=== PATIENT | female | born 1950 | race Caucasian/White ===

== ENCOUNTER → 2023-10-05 13:26 | Outpatient (REF) | payer MEDICARE, OTHER, SELFPAY | LOC: RAD 13:26 | PROVIDERS: ATTENDING PHYSICIAN Surgery Vascular Surgery; FAMILY PHYSICIAN Internal Medicine | DX: Z01.818 Encounter for other preprocedural examination (principal) | CPT/HCPCS: 93985 ==

== ENCOUNTER 2023-10-19 05:52 | Day surgery (SDC) | payer MEDICARE, OTHER, SELFPAY ==
[2023-10-19] VITALS (11 sets, daily range): BP systolic 112–184; BP diastolic 55–76; BMI 20.1
[2023-10-19 06:47] LABS: Hemoglobin 11.1 g/dL (12.0-16.0); Mean Corp Hgb Conc. 32.6 g/dL (33.0-37.0); Mean Corpuscular Hgb 29.9 pg (27.0-31.0); Mean Corpuscular Volume 91.6 fL (81.0-99.0); Mean Platelet Volume 11.1 fL (7.4-10.4); Platelet Count 327 10^3/uL (130-400); Red Blood Cell Count 3.71 10^6/uL (4.20-5.40); White Blood Cell Count 11.9 10^3/uL (4.8-10.8)
[2023-10-19] MEDS: NSS 500 IV (06:53)
[2023-10-19] MEDS: BACTROBAN NASAL 1 GRAM NASAL (06:53)
[2023-10-19] MEDS: PERIDEX 0.12% ORAL RINSE 15 ML PO (06:53)
[2023-10-19 06:57] LABS: Blood Urea Nitrogen 38 mg/dl (7-17); Calcium 9.8 mg/dl (8.4-10.2); Carbon Dioxide 31 mmol/L (22-30); Chloride 99 mmol/L (98-107); Glucose 121 mg/dl (70-99); Potassium 3.9 mmol/L (3.5-5.1); Sodium 142 mmol/L (135-145); eGFR 17.62
[2023-10-19 07:02] LABS: Glucose - Point of Care 134 mg/dl (70-99)
--- NOTE | 2023-10-19 07:21 | W.SUR.PREOP ---
Pre-Operative Surgical Note
-
I have examined this patient prior to the performance of the scheduled procedure.
The patient's condition is unchanged from the time of the current History and
Physical and the patient is able to undergo the scheduled procedure.
[2023-10-19 09:36] LABS: Glucose - Point of Care 123 mg/dl (70-99)
--- NOTE | 2023-10-19 09:48 | W.IMMPOSTOP ---
Surgical Immed Post Op Note
-
Primary Surgeon: Rajesh Shukla III, MD
Assisting Surgeon: Del Mckeon MD
Pre-op Diagnosis: ESRD
Post-op Diagnosis: ESRD
Procedure Performed: Brachio-basilic fistula creation
Anesthesia Type: General
Specimen / Cultures: NA
Estimated Blood Loss: 20cc
Complications: NA
Operative Findings:
Patient's left arm was prepped and draped. Basilic vein and brachial artery were mapped out with ultrasound preoperatively. A 4cm incision was made proximal to the antecubital fossa with subsequent cutdown of subcutaneous tissue to expose the
brachial artery and basilic vein. Proximal and distal control of the brachial artery was obtained. Branching vessels of basilic vein were tied off and/or clipped. The basilic vein was ligated, leaving an appropriate amount of length to traverse to
the brachial artery. An arteriotomy was made using Roldan scissors in the brachial artery. Local heparin was administered. Vessel loops were secured proximally and distally. An end-side anastomosis was made between the basilic vein and brachial
artery using a running 7-0 polypropylene suture. Hemostasis was confirmed and a thrill was noted and marked roughly 3cm proximal to the incision. The overlying subcutaneous tissue and skin were closed with a running 3-0 vicryl, 4-0 monocryl, and
skin glue.
--- NOTE | 2023-10-19 14:57 | OR.RPT ---
Operative Report
Operative Report
Date of Operation: 10/19/2023
Pre Op Diagnosis:
1.) End-stage renal disease requiring hemodialysis access
2.) Prior failed left upper extremity AV fistulas
Post Op Diagnosis:
1.) End-stage renal disease requiring hemodialysis access
2.) Prior failed left upper extremity AV fistulas
Procedure: Creation of left upper arm brachiobasilic AV fistula, first stage of a planned two-stage basilic vein transposition
Surgeon: Rajesh Shukla III, MD
[employer]: Del Mckeon MD PGY-1
Anesthesia: General
Complications: None
Estimated Blood Loss: 20 cc
History and Indications for Procedure: 72-year-old female in need of more permanent hemodialysis access with prior failed left upper extremity AV fistulas in the past.
Procedure in Detail: Jaycee Vega was correctly identified and placed supine on the operating table. After adequate induction of anesthesia the left arm was positioned, prepped and draped in the usual sterile fashion. Preoperative antibiotics were
administered. A timeout procedure was performed with the nursing and anesthesia staff confirming the patients identity as well as the nature and laterality of the procedure.
I performed intraoperative ultrasound on the veins of the left arm. I identified the upper arm basilic vein from the elbow to the axilla. The brachial artery was also identified in the distal upper arm and proximal forearm. The basilic vein was
uniformly have acceptable diameter for AV fistula creation from the elbow to the axilla. The appropriate site for the incision was then identified in the distal upper arm, just proximal to the elbow.
An incision was then made in the distal upper arm. Careful sharp dissection was performed and the basilic vein exposed. Branches of the vein were ligated between silk ties. The brachial artery was exposed with sharp dissection. Proximal and distal
control was obtained with vessel loops.
The distal end of the basilic vein was ligated with a tie. The vein was transected and flushed proximally with heparinized saline. The vein flushed easily and without resistance. The vessel loops on the artery were secured. An arteriotomy was made
with an 11-blade. This was extended just slightly proximally and distally with Roldan scissors. The proximal and distal artery was flushed with heparinized saline. The end of the vein was spatulated slightly. An end-to-side anastomosis was performed
from the end of the basilic vein to the brachial artery with a running 7-0 Prolene. At the completion of the anastomosis the proximal vessel loop was released first. After several heartbeats the distal brachial artery loop was released. The suture
line was closely inspected and hemostasis achieved. There was an excellent thrill in the basilic vein. There was a good pulse in the brachial artery proximal and distal to the anastomosis. There was a strong pulse in the radial artery at the left
wrist.
The wound was irrigated with saline. Hemostasis was achieved in the wound bed. The wound was closed in multiple layers and skin glue was applied.
The patient tolerated the procedure well and was taken to the PACU in stable condition.
Attestation: I was present and responsible for the entire procedure
Signed:
Rajesh Shukla III, MD
[facility]
[phone] (cell)
== END 2023-10-19 11:35 | disposition home or self-care (01) ==
LOC: CATH 05:52
PROVIDERS: ATTENDING PHYSICIAN Surgery Vascular Surgery; FAMILY PHYSICIAN Internal Medicine
DX: I12.0 Hypertensive chronic kidney disease with stage 5 chronic kidney disease or end stage renal disease (principal); E11.22 Type 2 diabetes mellitus with diabetic chronic kidney disease; N18.6 End stage renal disease; Z99.2 Dependence on renal dialysis
CPT/HCPCS: 36821; 80048; 82962; 85027; 85610; 85730; 93005

== ENCOUNTER → 2024-01-18 09:20 | Outpatient (REF) | payer MEDICARE, OTHER, SELFPAY | LOC: RAD 09:20 | PROVIDERS: ATTENDING PHYSICIAN Physician Assistant; FAMILY PHYSICIAN Internal Medicine | DX: Z01.818 Encounter for other preprocedural examination (principal) | CPT/HCPCS: 93990 ==

== ENCOUNTER 2024-02-15 08:14 | Day surgery (SDC) | payer MEDICARE, OTHER, SELFPAY ==
[2024-02-15] VITALS (14 sets, daily range): BP systolic 72–154; BP diastolic 53–72; BMI 19.8
[2024-02-15] MEDS: NSS 500 IV (09:10)
[2024-02-15] MEDS: BACTROBAN NASAL 1 GRAM NASAL (09:10)
[2024-02-15] MEDS: PERIDEX 0.12% ORAL RINSE 15 ML PO (09:10)
[2024-02-15 09:44] LABS: Hemoglobin 10.5 g/dL (12.0-16.0); Mean Corp Hgb Conc. 32.8 g/dL (33.0-37.0); Mean Corpuscular Hgb 29.5 pg (27.0-31.0); Mean Corpuscular Volume 89.9 fL (81.0-99.0); Mean Platelet Volume 11.1 fL (7.4-10.4); Platelet Count 292 10^3/uL (130-400); Red Blood Cell Count 3.56 10^6/uL (4.20-5.40); Red Cell Dist. Width 15.9 % (11.5-14.5); White Blood Cell Count 12.1 10^3/uL (4.8-10.8)
[2024-02-15 09:53] LABS: INR 0.98
[2024-02-15 09:54] LABS: APTT 23.6 Sec (23.4-35.0)
[2024-02-15 10:00] LABS: Blood Urea Nitrogen 27 mg/dl (7-17); Calcium 9.7 mg/dl (8.4-10.2); Carbon Dioxide 32 mmol/L (22-30); Chloride 97 mmol/L (98-107); Estimated Creatinine Clearance 16 ml/min; Glucose 108 mg/dl (70-99); Potassium 3.7 mmol/L (3.5-5.1); Sodium 140 mmol/L (135-145); eGFR 16.12
--- NOTE | 2024-02-15 12:20 | W.PA-PDMP ---
[place]-PDMP
-
Checked the [place]- Prescription Drug Monitoring Program website, no red flags identified; safe to proceed with prescription.
--- NOTE | 2024-02-15 12:37 | OR.RPT ---
Operative Report
Operative Report
Date of Operation: 02/15/2024
Pre Op Diagnosis: Upper extremity brachiobasilic AV fistula (status post 1st stage of planned 2 stage basilic vein transposition)
Post Op Diagnosis: Upper extremity brachiobasilic AV fistula (status post 1st stage of planned 2 stage basilic vein transposition)
Procedure: Revision of left upper extremity brachiobasilic AV fistula with transposition of the basilic vein (second stage BVT)
Surgeon: Rajesh Shukla III, MD
[employer]: Del Mckeon MD PGY-2
Anesthesia: General
Complications: None
Estimated Blood Loss: 20 cc
History and Indications for Procedure: 73-year-old female status post first stage of a planned two-stage basilic vein transposition.
Procedure in Detail: Jaycee Vega was correctly identified and placed supine on the operating table. After adequate induction of anesthesia her left arm was abducted 90 degrees. A timeout procedure was performed with the nursing and anesthesia
staff confirming the patient's identity and the nature and laterality of the procedure. The basilic vein was marked in the upper arm with ultrasound guidance. The arm was then circumferentially prepped and draped in the usual sterile fashion. We
made an incision over the medial upper arm. The entire basilic vein was dissected with careful sharp dissection. All branches were ligated and divided between ties and metal clips. The vein was good caliber along the entire course and had an
excellent thrill. Once the entire vein had been carefully dissected we then created a gentle curved tunnel lateral to the incision over the bicep with a large clamp. Proximal control was obtained on the vein with a curved vascular clamp. The vein
was marked and then transected near the arterial anastomosis. The vein was then brought through the tunnel carefully. The two ends of the vein were anastomosed to one another in an end-to-end fashion using a running 7-0 Prolene suture. At the
completion of the anastomosis the clamp was released and flow restored through the fistula. There was an excellent thrill in the tunnel. The suture line was inspected for hemostasis and this was achieved. The wound was irrigated with warm saline
solution. Hemostasis was achieved in the wound bed. The wound was then closed in multiple layers and sterile dressings applied. The patient had an easily palpable thrill in the tunnel and a palpable radial pulse at the conclusion of the case.
Attestation: I was present and responsible for the entire procedure
Signed:
Rajesh Shukla III, MD
[facility]
[phone] (ntci)
[2024-02-15 12:52] LABS: Glucose - Point of Care 117 mg/dl (70-99)
--- NOTE | 2024-02-15 13:02 | W.IMMPOSTOP ---
Surgical Immed Post Op Note
-
Primary Surgeon: Rajesh Shukla III, MD
Assisting Surgeon: Del Mckeon MD
Pre-op Diagnosis: ESRD
Post-op Diagnosis: ESRD
Procedure Performed: Basilic Vein Transposition
Anesthesia Type: General
Specimen / Cultures: NA
Estimated Blood Loss: 20cc
Complications: None
Operative Findings:
The BB fistula was identified on ultrasound preoperatively. A 15cm incision was made along the posterior surface of the left upper extremity. Electrocautery was used to dissect through subcutaneous tissue. The basilic vein was identified and freed.
Branches were tied, clipped, or burned accordingly. A track was created in adjacent subcutaneous tissue. Proximal and distal control of the vein were obtained. The vein was transected at its distal portion. The proximal portion was re-routed through
the new track, and re-anastamosed in an end-end fashion using running 7-0 polypropylene suture. Hemostasis was confirmed. Overlying tissue was closed with running 3-0 and 4-0, respectively. Thrill was identified and marked.
[2024-02-15] MEDS: ZOFRAN 4 MG IV (13:35)
[2024-02-15] MEDS: COMPAZINE 5 MG IV (14:24)
[2024-02-15 14:32] LABS: Glucose - Point of Care 143 mg/dl (70-99)
== END 2024-02-15 15:35 | disposition home or self-care (01) ==
LOC: CATH 08:14
PROVIDERS: ATTENDING PHYSICIAN Surgery Vascular Surgery; FAMILY PHYSICIAN Internal Medicine
DX: Z49.01 Encounter for fitting and adjustment of extracorporeal dialysis catheter (principal); N18.6 End stage renal disease; I25.10 Atherosclerotic heart disease of native coronary artery without angina pectoris; K21.9 Gastro-esophageal reflux disease without esophagitis; Z95.5 Presence of coronary angioplasty implant and graft; Z79.82 Long term (current) use of aspirin; Z99.2 Dependence on renal dialysis; I12.0 Hypertensive chronic kidney disease with stage 5 chronic kidney disease or end stage renal disease; E11.22 Type 2 diabetes mellitus with diabetic chronic kidney disease
CPT/HCPCS: 36832; 80048; 82962; 85027; 85610; 85730

== ENCOUNTER 2024-03-24 14:49 | Inpatient (IN) | payer MEDICARE, OTHER, SELFPAY ==
[2024-03-24] VITALS (9 sets, daily range): BP systolic 96–146; BP diastolic 48–84; BMI 20.5; BMI 19.5
--- NOTE | 2024-03-24 10:46 | ED.GENMED ---
History of Present Illness
General
Chief Complaint: Breathing Problem
Time Seen by Provider: 03/24/24 10:46
History of Present Illness
History of Present Illness:
HPI: The patient presents with weakness and ongoing shortness of breath. The weakness has been worsening but the shortness of breath is chronic. She told her dialysis unit that she was coming here instead and wants Dr. Singh to be notified. She
has a chronic cough. She had a kidney transplant 20 years ago for polycystic kidney disease but is currently on dialysis. There was some talk about hospice for her however she is not ready to commit to hospice yet.
EXAM:
GENERAL: The patient appears generally weak and debilitated, wet sounding cough noted
HEENT: Moist oral mucosa
CARDIOVASCULAR: No murmurs, normal heart rate, regular rhythm, No chest wall tenderness, permacath noted to the right side of the chest wall
PULMONARY: No respiratory distress, room air sats 96 to 98%, rhonchi with scant wheeze noted
ABDOMEN: Soft with no peritoneal signs, no tenderness
NEUROLOGIC: Good strength all extremities, no coordination deficits
PSYCHIATRIC: Appropriate mental status, normal insight and judgement
EXTREMITIES: Nontender, no edema, moves all extremities equally
SKIN: No rash, no lesions
TIME OF INITIAL ENCOUNTER:
NUMBER AND COMPLEXITY OF PROBLEMS ADDRESSED AT THE ENCOUNTER
� Chronic conditions affecting care: CHF, CAD, high blood pressure, diverticular disease, GERD, CKD on HD (polycystic kidney disease status post kidney transplant is anuric), anxiety/depression
� Acute Exacerbation and/or Progression of Chronic Illness: This is an acute exacerbation of a chronic problem
� Differential Diagnosis includes: Bronchitis, pneumonia
AMOUNT AND/OR COMPLEXITY OF DATA TO BE REVIEWED AND ANALYZED
� I performed an independent evaluation of and my interpretation is:
EKG: Sinus 81, frequent PVCs
CT: CT imaging shows dense right lower lobe consolidation, no report of any concerning mass
X-rays:
Laboratory Studies: White count 13.3, hemoglobin 9.9, bicarb 32, creatinine 4.8
Other:
� Review of other/old records: I reviewed records.
� Clinical information was obtained by an independent historian: I spoke to friend at bedside
� Prescriptions/Medications Considered but not given:
� Further testing considered but not performed:
RISK OF COMPLICATIONS AND/OR MORBIDITY OR MORTALITY OF PATIENT MANAGEMENT
� Social determinants of health affecting care: Lives at home
� Discussion with other providers: Hospitalist for admission; I also spoke to Dr. Boudreaux to arrange for dialysis today
� Escalation of care including admission/observation vs risk of discharge considered: Bicarb is 32, there may be of component of hypercapnia. The patient initially declined DuoNeb as I had originally recommended. Troponin less
than 0.012. BNP over 5000. CT with contrast shows right lower lobe consolidation. No clear evidence of any concerning mass as patient was concerned about at [place] from a year ago.
Past History
Past History
ED Past Medical History: CAD, HTN, Hypercholesterolemia, NV, Renal failure (Polycystic kidney disease, kidney transplant), Seizures, Psychiatric and Other (AAA, aortic dissection)
ED Past Surgical History: Cardiac (stent insertion, CABG), Cholecystectomy, Gynecological (partial hysterectomy) and Other (kidney transplant, cardiac stent, LE stent)
Social History
Tobacco: Smoker
Alcohol: None
Drug: None
Personal:
Living: with family
Employment: Employed
Family History
Family History: Hypertension
Phy Exam
Physical Exam
Physical Exam:
See HPI
Scores
Heart Failure Risk
Heart Failure Risk Score: Not Applicable
Course
Orders/Labs/Results
Orders:
Orders
03/24/24 11:10
CT Chest With Iv Contrast Urgent
Comment:
Reason For Exam: lung mass at [place]; worse SOB; renal ok contras
03/24/24 11:12
Ipratropium/Albuterol Sulfate [Duoneb] 3 ml INH R NOW ONE
03/24/24 12:08
Complete Blood Count/With Diff Urgent
Comprehensive Metabolic Panel Urgent
Magnesium Urgent
Pro-BNP [NT-proBNP] Urgent
Troponin I Urgent
03/24/24 13:25
Azithromycin 500 mg/250 ml [Zithromax Infusion] 500 mg in 250 ml IV NOW
CefTRIAXone [Rocephin] 1,000 mg IV NOW STA
03/24/24 13:28
Electrocardiogram (*1) Urgent
Reason for Study: Shortness of Breath
EKG- Treatment ONCE
Abnormal Lab Results
03/24/24
12:08
WBC 13.3 H 10^3/uL
(4.8-10.8)
RBC 3.37 L 10^6/uL
(4.20-5.40)
Hgb 9.9 L g/dL
(12.0-16.0)
Hct 30.1 L %
(37.0-47.0)
MCHC 32.9 L g/dL
(33.0-37.0)
RDW 16.1 H %
(11.5-14.5)
MPV 11.6 H fL
(7.4-10.4)
Abs Immat Gran (auto) 0.1 H 10^3/uL
(0-0.05)
Absolute Neuts (auto) 10.3 H 10^3/uL
(1.4-6.5)
Absolute Monos (auto) 1.0 H 10^3/uL
(0.1-0.6)
Neutrophils % 77.4 H %
(42.2-75.2)
Lymphocytes % 13.3 L %
(20.5-51.1)
Chloride 92 L mmol/L
(98-107)
Carbon Dioxide 32 H mmol/L
(22-30)
BUN 64 H mg/dl
(7-17)
Creatinine 4.8 H* mg/dL
(0.6-1.0)
Glucose 103 H mg/dl
(70-99)
03/24/24 12:08
03/24/24 12:08
Vital Signs
Initial and Last Documented VS:
Initial Vital Signs
Temp Pulse Resp BP Pulse Ox
98.2 F 98 18 119/65 96
03/24/24 10:37 03/24/24 10:37 03/24/24 10:37 03/24/24 10:37 03/24/24 10:37
Last Documented Vital Signs
Temp Pulse Resp BP Pulse Ox
98.2 F 78 19 135/52 97
03/24/24 10:37 03/24/24 13:30 03/24/24 13:30 03/24/24 13:26 03/24/24 13:30
*Critical Care Note
Total Time (30-74mins, 75-104mins- exclusive of procedures): Not Applicable
ED Attending Note
-
Portions of this chart may have been created with voice recognition software.� Occasional wrong word or��sound alike� substitutions may have occurred due to the inherent limitations of voice recognition software.
Discharge Plan
Departure
Patient Disposition: Admit
Date of Disposition: 03/24/24
Time of Disposition: 12:33
Presentation/result/management discussed w/ accepting MD/DO: Hospitalist
Discharge Problem:
Shortness of breath
Prescriptions:
No Action
atorvastatin 40 MG tablet
40 mg PO HS
Patient Comments:
aspirin 81 MG tablet,delayed release (DR/EC)
81 mg PO DAILY
clopidogrel 75 mg tablet
75 mg PO DAILY
midodrine 10 mg Tablet
10 mg PO MOWEFR@1400
Rx Instructions:
taken after diaylsis
isosorbide mononitrate 30 mg Tablet Extended Release 24 Hr
30 mg PO DAILY
duloxetine [Cymbalta] 60 mg Capsule,Delayed Release(Dr/Ec)
60 mg PO HS
cinacalcet [Sensipar] 60 mg Tablet
60 mg PO QPM
Referrals:
Lenore Sharpe MD [Family Provider] -
Interventions
Interventions:
*Risk Screen - Suicide Last Done: 03/24/24 10:37
*General Assessment Last Done: 03/24/24 10:37
*Neglect/Abuse Screening Last Done: 03/24/24 10:37
ED- Fall Risk Assessment Last Done: 03/24/24 11:04
*ED COVID-19 Vaccine History Last Done: 03/24/24 10:37
ED- Cardiac Assessment Last Done: 03/24/24 11:04
ED- Pulmonary Assessment Last Done: 03/24/24 11:04
Discharge Date and Time
Print Language: PORTUGUESE
[2024-03-24 12:28] LABS: % Basophils 0.6 % (0-2); % Immature Granulocytes 0.5 % (0-0.5); % Lymphocytes 13.3 % (20.5-51.1); % Monocytes 7.2 % (1.7-9.3); % Neutrophils 77.4 % (42.2-75.2); Absolute Basophils 0.1 10^3/uL (0-0.2); Absolute Eosinophils 0.1 10^3/uL (0-0.7); Absolute Immature Granulocytes 0.1 10^3/uL (0-0.05); Absolute Lymphocytes 1.8 10^3/uL (1.2-3.4); Absolute Neutrophils 10.3 10^3/uL (1.4-6.5); Hematocrit 30.1 % (37.0-47.0); Hemoglobin 9.9 g/dL (12.0-16.0); Mean Corp Hgb Conc. 32.9 g/dL (33.0-37.0); Mean Corpuscular Hgb 29.4 pg (27.0-31.0); Mean Corpuscular Volume 89.3 fL (81.0-99.0); Mean Platelet Volume 11.6 fL (7.4-10.4); Nucleated Red Blood Cells % 0 %; Platelet Count 264 10^3/uL (130-400); Red Blood Cell Count 3.37 10^6/uL (4.20-5.40); Red Cell Dist. Width 16.1 % (11.5-14.5); White Blood Cell Count 13.3 10^3/uL (4.8-10.8)
[2024-03-24 12:41] LABS: ALT (SGPT) 19 U/L (0-35); AST (SGOT) 29 U/L (14-36); Alkaline Phosphatase 117 U/L (38-126); Blood Urea Nitrogen 64 mg/dl (7-17); Calcium 9.4 mg/dl (8.4-10.2); Carbon Dioxide 32 mmol/L (22-30); Chloride 92 mmol/L (98-107); Estimated Creatinine Clearance 10 ml/min; Glucose 103 mg/dl (70-99); Magnesium 2.3 mg/dl (1.6-2.3); Potassium 4.4 mmol/L (3.5-5.1); Sodium 140 mmol/L (135-145); Total Bilirubin 0.8 mg/dl (0.2-1.3); Total Protein 6.8 g/dl (6.3-8.2); eGFR 9.17
[2024-03-24 12:49] LABS: NT-proBNP 5340 pg/ml; Troponin I < 0.012 ng/ml
[2024-03-24] MEDS: ROCEPHIN 1000 MG IV (13:35)
[2024-03-24] MEDS: ZITHROMAX INFUSION 250 IV (13:42)
--- NOTE | 2024-03-24 14:35 | CON.PUL ---
Consultation
Consultation Request
Date/Time Consultation Requested: 03/24/24
Date/Time Consultation Performed: 03/24/24
Performing Provider: Mariaa
Reason for Consultation: PNA
Medical History
-
History of Present Illness:
Patient is a 73-year-old female with previous history of end-stage renal disease on HD MWF, coronary artery disease, history of right thoracotomy with right lower lobe wedge resection 2018, ischemic cardiomyopathy, stroke presenting to ER with
complaints of 3 to 4 weeks of severe generalized fatigue, productive cough with occasional hemoptysis and right sided back pain. She had prior imaging in the past including at outside hospital demonstrating potential right lower lobe disease that
has not been followed up. CT obtained on this admission showing large right lower lobe consolidation likely pneumonia.
She is placed on empiric IV antibiotics.
She notes that her degree of hemoptysis is occasional and generally quarter size but not daily.
She is a former smoker, 30 pack years, quit only 2 years ago. She denies family history of lung cancer.
.
Past Medical History
Past Medical History: Other (see list below)
Social History
Tobacco: Former Smoker
Alcohol: None
Drug: None
Allergies / Home Medications
Allergies
Allergy/AdvReac Type Severity Reaction Status Date / Time
adhesive tape Allergy Itching Verified 03/24/24 10:40
Home Medications
�Medication �Instructions �Recorded �Confirmed �Last Taken �Type
atorvastatin 40 mg tablet 40 mg PO HS High cholesterol 11/04/12 03/24/24 03/23/24 History
aspirin 81 mg tablet,delayed 81 mg PO DAILY Blood clot 10/14/15 03/24/24 03/23/24 History
release prevention/tx
clopidogrel 75 mg tablet 75 mg PO DAILY Blood clot 10/27/22 03/24/24 03/23/24 History
prevention/tx
midodrine 10 mg tablet 10 mg PO MOWEFR@1400 hypotension 04/02/23 03/24/24 02/14/24 13:00 History
isosorbide mononitrate 30 mg 30 mg PO DAILY 10/14/23 03/24/24 03/23/24 History
tablet,extended release 24 hr
duloxetine 60 mg capsule,delayed 60 mg PO HS 10/19/23 03/24/24 03/23/24 History
release (Cymbalta)
cinacalcet 60 mg tablet (Sensipar) 60 mg PO QPM 02/15/24 03/24/24 03/23/24 History
Review of Systems
-
History Source: Patient
All other systems: Negative unless noted
Vitals / Labs / Diagnostic Testing
Vital Signs
Temp Pulse Resp BP Pulse Ox
98.2 F 78 19 135/52 97
03/24/24 10:37 03/24/24 13:30 03/24/24 13:30 03/24/24 13:26 03/24/24 13:30
Lab Data
03/24/24 12:08
03/24/24 12:08
Diagnostic Testing:
Physical Exam
-
HEENT: Normocephalic, Anicteric and Moist Mucous Membranes
Cardiovascular: S1/S2 and Regular Rhythm
Respiratory: Clear (decreased at R base) and Non-Labored Respirations
GI: Soft, Non Distended and Non Tender
Neurology: Awake, Alert, Oriented, AO x 3 and No Motor Deficits
Skin: Warm, Dry and Good Color
General: Comfortable and Other (NAD)
Assessment
-
Patient is a 73-year-old female with previous history of end-stage renal disease on HD MWF, coronary artery disease, history of right thoracotomy with right lower lobe wedge resection 2018, ischemic cardiomyopathy, stroke presenting to ER with
complaints of 3 to 4 weeks of severe generalized fatigue, productive cough with occasional hemoptysis and right sided back pain. She had prior imaging in the past including at outside hospital demonstrating potential right lower lobe disease that
has not been followed up. CT obtained on this admission showing large right lower lobe consolidation likely pneumonia. We are consulted for eval.
Right lower lobe pneumonia, cannot rule out malignancy
Hemoptysis
Generalized weakness
Productive cough
Right sided back pain
Conditions present prior to admission:
End-stage renal disease on HD
She has declined dialysis in the past, discussed hospice, has not yet agreed
Right upper extremity brachial DVT
Recent hospitalization-discharge 11/04/22-sepsis from E. coli bacteremia
CAD status post CABG-subsequent PCI
Hypertension
Hyperlipidemia�
Chronic kidney disease
Polycystic kidney status post renal transplant-2004
Chronic immunosuppression
Chronic hyperparathyroidism
Hypothyroid
Seizure history
AAA
Aortic dissection
History of TIA
PMR
Osteopenia
Peripheral neuropathy
Restless legs
CVA status post angioplasty and stenting of left vertebral artery 2018
Gait disturbance with left hand weakness following right basal ganglia CVA 2018
Cholecystectomy.� Partial hysterectomy.� Kidney transplant.� Lower extremity stent-left SFA.� Multiple Mohs procedures.� Esophageal repair
Plan
She is currently maintained on room air
Does not have O2 at home
Prior history of mild emphysema on CT, last PFT in 2018 without obstruction
She is a former smoker, 30 pack years, quit only 2 years ago. She denies family history of lung cancer.
There is concern with CT findings of right lower lobe consolidation, may indicate pneumonia but also cannot rule out malignancy
Agree with empiric IV antibiotics.
If not resolving, may need to have discussion regarding bronchoscopy
She has noted in the past that if she were to have malignancy, she may withdraw from dialysis
Mild hemoptysis is noted
She notes that her degree of hemoptysis is occasional and generally quarter size but not daily
Quantify for now
Metabolic alkalosis noted, can check VBG in AM
HD resumed per renal team
proBNP 5340
Prior echo has been reviewed, reduced EF 45%
She has history of ischemic cardiomyopathy
She appears severely deconditioned, failure to thrive
Recommend dietary, PT OT consults
Hospice has been discussed in the past, she has not been agreeable yet
Patient is DNR
We will follow
Diagnostic Data
CXR 12/03/22 - IMPRESSION: Limited exam due to patient rotation. New central line catheter. No pneumothorax. Mild vague bilateral pneumonia. Not significantly changed compared to the exam 2 days ago.
CXR 12/01/22- IMPRESSION: Mild to moderate residual bilateral pneumonia, significantly improved.
CT Chest 11/18/22- IMPRESSION: 1. Moderate to severe multifocal pneumonia throughout all lobes.
Chest 09/15/19- 1. 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 No significant change compared to prior study. The remaining visualized portion of the thoracic and upper abdominal aorta
are of normal caliber.
2. Changes of mild centrilobular emphysema. Prior right lower lobe resection.
3. Small left thyroid nodule, measuring 7 mm in diameter, likely benign.
CT Chest 03/24/24- 1. Large amount of dense airspace consolidation in the basal segments of the right lower lobe most likely representing pneumonia. Bronchi to the basal segments are completely filled with secretions.
2. Chronic postoperative changes right lower lobe as seen on previous examinations. Evaluation for recurrent malignancy is not possible on this examination secondary to the superimposed consolidation.
3. Trace right pleural effusion. As above, some indistinct decreased attenuation superior right lobe of the liver which could be related to reactive edematous/inflammatory change. As warranted, could be further evaluated with follow-up
contrast-enhanced CT abdomen and pelvis after resolution of acute process.
4. Chronic approximately 1 cm nodule in the right lower lobe as detailed above, most likely benign given presence with slight interval increase in size dating back to 2013.
5. Advanced aortic atherosclerosis. Ectasia ascending aorta, 4.[address] AP 11/09/22 - IMPRESSION:
1. � Moderate hydronephrosis of right iliac fossa transplant kidney. No obstructing calculi are identified.
2. � Small bowel lateral pleural effusions with adjacent atelectasis, right greater than left.
3. � Innumerable hepatic cysts and probable cysts.
4. � Small volume of ascites. Anasarca.
5. � Diverticulosis without diverticulitis.
6. � Abdominal aortic aneurysm measuring up to 3.4 cm in diameter.
ECHO 11/11/22- Mildly reduced left ventricular systolic function. Left ventricular ejection fraction is 45%.�Hypokinesis of the basal to mid inferolateral and lateral segments.�Mild/moderate mitral regurgitation.
Moderate aortic regurgitation. ��Mild tricuspid regurgitation. Estimated pulmonary artery pressure of 25-30 mmHg assuming a right atrial pressure of 3 mmHg. �Normal PASP. Compared to 09/15/19: LVEF has declined from 60-65% to 45%; there
is�inferolateral and lateral hypokinesis; and AR has progressed from mild/moderate�to moderate.
PFT 10/06/17: FEV1 2.35L 82%, FVC 3.21L 86%, ratio 73. TLC 4.76L 84%, DLCO 45% (normal reza/volumes, moderate diffusion impairment)
Reports and relevant images were personally reviewed.
-----
Total time spent on this consultation __75__ includes review of history, physical exam, medications, laboratory data, personal review of imaging, extensive review of outpatient records, discussion with care team and respiratory therapy.
--- NOTE | 2024-03-24 14:39 | HPS.HSE ---
Family Physician
-
Family Physician: Lenore Sharpe
Chief Complaint
-
Productive cough, hemoptysis, generalized fatigue, right-sided back pain.
History of Present Illness
Patient is a 73 years old female with extensive past medical history including end-stage renal disease with failed transplant on hemodialysis Wednesday, coronary artery disease, right thoracotomy with right lower lobe wedge resection
2019 with benign pathology, CVA, ischemic cardiomyopathy presents to the emergency room with complaints of about 3 to 4 weeks of severe generalized fatigue, productive cough with hemoptysis as well as occasional right-sided back pain. Patient
denies any chest pain, fever. She denies any problems swallowing. She mentioned hospitalization to [facility] [place] close to a year ago with similar symptoms and was treated with antibiotics. At that time concern was for possible right
lower lobe mass, although patient had no follow-up.
Medical History
Past Medical History
Past Medical History: Reports CAD, CHF, CVA and Other (End-stage renal disease on HD. Right lower lobe mass with wedge resection. Failed renal transplant. Polycystic kidney disease.)
Past Surgical History: Reports Other (CABG, right lower lobe wedge resection. AV fistula, renal transplant)
Social History
Tobacco: Former Smoker
Living: With Family
Employment: Disabled
Family History
Family History: Not pertinent
Allergies / Home Medications
Allergies reflects when Allergies were last updated in [facility].
Home Medications with original date entered in [facility]
Allergy/Medication List:
Allergies
Allergy/AdvReac Type Severity Reaction Status Date / Time
adhesive tape Allergy Itching Verified 03/24/24 10:40
Home Medications
atorvastatin 40 mg tablet 40 mg PO HS High cholesterol 11/04/12
aspirin 81 mg tablet,delayed release 81 mg PO DAILY Blood clot prevention/tx 10/14/15
clopidogrel 75 mg tablet 75 mg PO DAILY Blood clot prevention/tx 10/27/22
midodrine 10 mg tablet 10 mg PO MOWEFR@1400 hypotension 04/02/23
isosorbide mononitrate 30 mg tablet,extended release 24 hr 30 mg PO DAILY 10/14/23
duloxetine 60 mg capsule,delayed release (Cymbalta) 60 mg PO HS 10/19/23
cinacalcet 60 mg tablet (Sensipar) 60 mg PO QPM 02/15/24
Review of Systems
-
A 12 point ROS was completed and negative except as noted: Yes
Constitutional: Reports See HPI
Respiratory: Reports See HPI
Cardiac: Reports No Symptoms
Abdomen/GI: Reports No Symptoms
: Reports No Symptoms
Physical Exam
Vital Signs
Vital Signs
Temp Pulse Resp BP Pulse Ox
98.2 F 78 19 135/52 97
03/24/24 10:37 03/24/24 13:30 03/24/24 13:30 03/24/24 13:26 03/24/24 13:30
Physical Exam
General: Well Developed, No Apparent Distress and Appears Chronically Ill
HEENT: NormoCephalic, Moist mucous membranes and Atraumatic
Respiratory: Rhonchi and Other (Right base bronchial sounds); No Wheezes
Cardiac: S1/S2 and Regular Rhythm; No Murmur or Rub
GI: Soft, Non Tender, Non Distended and Normal Bowel Sounds; No Organomegaly
Rectal: Deferred by Provider
Musculoskeletal: No Clubbing, No Cyanosis and No Edema
Skin: No Rash
Neuro: Awake, Alert, Oriented, AO x 3 and Nonfocal/grossly intact
Laboratory Results
-
03/24/24 12:08
03/24/24 12:08
Laboratory Results
Total Bilirubin 0.8 mg/dl (0.2-1.3) 03/24/24 12:08
AST 29 U/L (14-36) 03/24/24 12:08
ALT 19 U/L (0-35) 03/24/24 12:08
Alkaline Phosphatase 117 U/L (38-126) 03/24/24 12:08
Troponin I < 0.012 ng/ml 03/24/24 12:08
Data Reviewed
-
Diagnostic Radiology: Report Reviewed by me
Lab Data: Labs Reviewed by me
Impression/Plan
-
IMPRESSION:
73 years old female with history of right lower lobe wedge resection with benign pathology presents with weeks of generalized fatigue, productive cough and hemoptysis.
Right lower lobe pneumonia
Hemoptysis
Failure to thrive with generalized fatigue
Other conditions:
Right thoracotomy with right lower lobe wedge resection 2018 with benign pathology.
End-stage renal disease on hemodialysis Wednesday.
Failed renal transplant .
Anemia of chronic disease.
Polycystic kidney disease with bilateral nephrectomy 2003.
CAD status post CABG 2002.
Ischemic cardiomyopathy with LVEF of 45% (decreased from 60 to 65%)
Chronic hypotension requiring midodrine.
History of PMR currently not on steroids.
History of CVA, status post angioplasty/stent at the left vertebral artery 2019 at [facility].
PAD with left SFA angioplasty and stenting 2012
Valvular disease with mild MR/moderate AI
History of longstanding tobacco abuse, currently not smoking
History of COVID-19 infection
PLAN:
Presenting with weeks of generalized fatigue, productive cough with hemoptysis, occasional right-sided back pain
Afebrile
Exam with right base bronchial sounds.
Noted with mild elevation of WBC.
CT scan findings with large amount of dense airspace consolidation in the basal segments of the right lower lobe most likely a presenting pneumonia. Bronchial to the distal segments are completely filled with secretions.
Sputum culture
Blood culture.
Quantify hemoptysis. CAD/PAD/prior CVA on [employer]. Will continue with caution.
Broad-spectrum antibiotics: Vancomycin/Zosyn/doxycycline adjusted dialysis schedule
Mucolytic's.
Consider chest PT.
Follow-up imaging
Speech and swallow evaluation.
End-stage renal disease with failed transplant
Currently not on immunosuppression.
Polycystic kidney disease with bilateral nephrectomy.
Continue hemodialysis as per schedule.
Continue midodrine
ASCVD: CAD/PAD/history of CVA
Ischemic cardiomyopathy.
Continue preadmission regimen including DAPT, statin.
Continue DAPT
On Imdur
Physical therapy evaluation.
CODE STATUS DNR according to prior records and admissions.
DVT prophylaxis mechanical.
--- NOTE | 2024-03-24 15:57 | PTOTSP ---
AUTO RADIATOR SPECIALIST Note
Patient unavailable for dysphagia evaluation due to starting HD. Will follow up as able/appropriate.
Patient known to department from prior video swallow study 12/15/2018 where she had mild-moderate pharyngeal dysphagia. Of note, at that time patient had silent aspiration when swallowing thin contrast with a barium pill. It was recommended that
patient have regular solids, thin liquids with strategies (i.e., small bolus size, oral prep set, chin tuck, multiple swallows). Consider giving oral medications whole in puree given information above.
--- NOTE | 2024-03-24 16:19 | W.CON.NEPH ---
Consultation
-
Date/Time Consultation Requested: 03/24/24
Date/Time Consultation Performed: 03/24/24 11a
Requesting Provider: Dr. Banks
Performing Provider: Dr. Boudreaux
Reason for Consultation: ESRD
Medical History
-
Chief Complaint: Shortness of breath
History of Present Illness:
This is a 73-year-old female who is known to us for her end-stage renal disease on hemodialysis Wednesdays at [facility]. She has a prior renal transplant from 2004 which had failed. She has known tertiary
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 She does have chronic hyponatremia and receives midodrine with dialysis. Recently she had been at [place] and was found to have a right lung mass. She is unsure of what the workup was at that time but she
remembers being told to get a PET scan as an outpatient. She had then gone to rehab in [facility]. She comes to the emergency room today because of worsening fatigue some cough right-sided back pain and shortness of breath. She was due for
dialysis today
Past Medical History
ESRD, renal transplant donor failed 2004, polycystic kidney disease with bilateral nephrectomy, AV fistula, peripheral arterial disease with left SFA angioplasty and stenting, coronary artery bypass grafting, thoracic aneurysm repair, right
thoracotomy with right lower lobe wedge resection in 2018 with benign pathology, stroke, PMR, tertiary hyperparathyroidism, pulmonary embolism, ischemic cardiomyopathy, moderate MR, moderate AI
Social History
Tobacco: Smoker
Alcohol: None
Family History
Family History: Not Pertinent
Allergies / Home Medications
Allergy/AdvReac Type Severity Reaction Status Date / Time
adhesive tape Allergy Itching Verified 03/24/24 10:40
�Medication �Instructions �Recorded �Confirmed �Type
atorvastatin 40 mg tablet 40 mg PO HS High cholesterol 11/04/12 03/24/24 History
aspirin 81 mg tablet,delayed 81 mg PO DAILY Blood clot 10/14/15 03/24/24 History
release prevention/tx
clopidogrel 75 mg tablet 75 mg PO DAILY Blood clot 10/27/22 03/24/24 History
prevention/tx
midodrine 10 mg tablet 10 mg PO MOWEFR@1400 hypotension 04/02/23 03/24/24 History
isosorbide mononitrate 30 mg 30 mg PO DAILY 10/14/23 03/24/24 History
tablet,extended release 24 hr
duloxetine 60 mg capsule,delayed 60 mg PO HS 10/19/23 03/24/24 History
release (Cymbalta)
cinacalcet 60 mg tablet (Sensipar) 60 mg PO QPM 02/15/24 03/24/24 History
Review of Systems
-
Fatigue shortness of breath back pain
All other systems: Negative unless noted
Physical Exam
Vital Signs
Vital Signs
Temp Pulse Resp BP Pulse Ox
98.0 F 83 18 96/52 94
03/24/24 15:43 03/24/24 15:43 03/24/24 15:43 03/24/24 15:43 03/24/24 15:43
Lab Results
WBC 13.3 10^3/uL (4.8-10.8) H 03/24/24 12:08
RBC 3.37 10^6/uL (4.20-5.40) L 03/24/24 12:08
Hgb 9.9 g/dL (12.0-16.0) L 03/24/24 12:08
Hct 30.1 % (37.0-47.0) L 03/24/24 12:08
Plt Count 264 10^3/uL (130-400) 03/24/24 12:08
Sodium 140 mmol/L (135-145) 03/24/24 12:08
Potassium 4.4 mmol/L (3.5-5.1) 03/24/24 12:08
Chloride 92 mmol/L (98-107) L 03/24/24 12:08
Carbon Dioxide 32 mmol/L (22-30) H 03/24/24 12:08
BUN 64 mg/dl (7-17) H 03/24/24 12:08
Creatinine 4.8 mg/dL (0.6-1.0) H* 03/24/24 12:08
eGFR 9.17 03/24/24 12:08
Glucose 103 mg/dl (70-99) H 03/24/24 12:08
Calcium 9.4 mg/dl (8.4-10.2) 03/24/24 12:08
Ivx-W-Lkrnglalopb Pept 5340 pg/ml 03/24/24 12:08
Albumin 4.0 g/dl (3.5-5.0) 03/24/24 12:08
Physical Exam
Patient is awake alert oriented and in no distress. Mood and affect were pleasant, insight and judgment were good. Pupils are equal round and reactive to light, extraocular movements are intact, sclera were anicteric. Hearing was normal, ears and
nose are intact. Oropharynx was clear. Neck was supple with trachea midline and no thyromegaly. Heart was regular rate and rhythm without rubs. Lower extremities without edema. Lungs were clear to auscultation bilaterally and with normal
excursion. Abdomen was soft, nontender, with normal active bowel sounds, and no hepatosplenomegaly. Skin was without rash and with normal turgor. AV fistula with good bruit and thrill, dialysis catheter in right neck noted
Vascular Access: AVF and CVC
Data Reviewed
-
CT Scan: Report Reviewed by me (CT chest with IV contrast on March 24, 2024 shows right lower lobe consolidation, trace right effusion, chronic 1 cm nodule right lower lobe)
Medical Tests (Nuc Med, Echo etc): Image Personally Visualized and interpreted (EKG on March 24, 2020 for my read shows sinus rhythm prolonged QT nonspecific T wave abnormality)
Labs: Labs Reviewed by me
Old Records: Reviewed
Assessment/Plan
-
Assessment
ESRD
Right lower lobe consolidation
Right lower lobe nodule
Hypertension
Coronary artery disease with bypass
Peripheral arterial disease
Tertiary hyperparathyroidism
Plan
Dialysis today to remain on schedule
Will use AV fistula. Plan is for removal of dialysis catheter in the next week
Pulmonary evaluation regarding right lung pathology
--- NOTE | 2024-03-24 16:27 | CM ---
Reviewed the chart notes and spoke with the patient on HD. The patient resides alone in a two story home with two steps to enter. The patient resides on the first floor. The patient reports having a cane and rolling walker. The patient receives
HD at [facility]. The patient has [employer] program aid three times a week for four hours each time. The aide transports the patient to HD. The patient has been to [facility] and [facility]. continues to be available
to patient/family and is monitoring medical plan for needs at discharge.
Plan: Discharge plans will depend on the patient's progress.
[2024-03-24] MEDS: EMLA CREAM 1 GRAM TOPICAL (16:28)
[2024-03-24 17:11] LABS: Hepatitis B Surface Antigen Negative (Negative)
--- NOTE | 2024-03-24 17:15 | W.PN.NEPH.HD ---
Assessment
-
Seen on HD. no new complaints. back pain still. VSS. access AVF good
Progress Note - Hemodialysis
-
Date of Service: March 24, 2024
Duration: 30 minutes and 3 hours
Potassium Bath: 2
Calcium Bath: 2.5
Opti-Dialyzer: 160
Ultrafiltration: Other (2kg)
Blood Flow: 400
Dialysate Flow: 600
Heparin: no
EPO: 03318 units
--- NOTE | 2024-03-24 18:01 | PHA.VAN.IN ---
Assessment
- Assessment
Renal Function: Patient has ESRD, on chronic Hemodialysis
Hemodialysis Schedule: MWF
Concomitant Antimicrobials: ZOSYN
- Previous Dosing Experience
Previous Regimen: DOSING BY RANDOM LEVEL
Date of Regimen: 10/27/22
Provided Trough of: UNKNOWN
Provided AUC of: UNKNOWN
Patient's SCR is: Decreased compared to previous dosing experience (10/27/22 SCR = 5.6)
Patient's weight is: Elevated compared to previous dosing experience (10/27/22 WT = 48.7 KG)
Plan
- Plan
Initial / Loading Dose: 1500MG
Maintenance Regimen: DOSING BY RANDOM LEVEL
Monitoring: RANDOM VANCOMYCIN LEVEL 03/25/24 AM
Pharmacokinetics Vancomycin I
- -
Patient Age: 73
Patient Sex: Female
Vancomycin Day #: 1
Indication: Pulmonary/Respiratory
Requesting Provider: SUJATA
Height / Weight:
Height 5 ft 8 in
Actual Weight 58.014 kg
- Vital Signs / Lab Results
Temp Pulse Resp BP Pulse Ox
98.0 F 83 18 96/52 94
03/24/24 15:43 03/24/24 15:43 03/24/24 15:43 03/24/24 15:43 03/24/24 15:43
Lab Results - Hematology
03/24/24
12:08
WBC 13.3 H
Lab Results - Chemistry
03/24/24
12:08
BUN 64 H
Creatinine 4.8 H*
Estimated Creat Clear 10
Albumin 4.0
--- NOTE | 2024-03-24 18:39 | PTCARENOTE ---
patient c/o of upper back pain from coughing. dr aware. Tyl ordered. pt refused and states tyl does not help. dr. lala made aware.
[2024-03-24] MEDS: RETACRIT 10000 UNITS IV (18:52)
[2024-03-24] MEDS: VANCOCIN 300 ML IV (19:02)
[2024-03-24] MEDS: VANCOCIN 300 MG IV (19:02)
[2024-03-24] MEDS: ROXICODONE 5 MG PO (19:40)
[2024-03-24] MEDS: MUCINEX 600 MG PO (19:40)
[2024-03-24] MEDS: SENSIPAR 60 MG PO (21:06)
[2024-03-24] MEDS: ZOSYN 50 IV (21:07)
[2024-03-24] MEDS: VIBRAMYCIN 100 MG PO (21:07)
[2024-03-24] MEDS: LIPITOR 40 MG PO (21:10)
[2024-03-24] MEDS: CYMBALTA DELAYED RELEASE 60 MG PO (21:18)
[2024-03-24] MEDS: ROBITUSSIN 100 MG PO (21:50)
[2024-03-25] MEDS: ZOSYN 50 IV ×3 (04:27→20:39)
[2024-03-25] MEDS: ROXICODONE 5 MG PO ×2 (04:35→17:28)
[2024-03-25 04:43] LABS: Venous Blood Gas B.E. 6.3 mmol/L (-4 to +4); Venous Blood Gas HCO3 30.6 mmol/L (22-27); Venous Blood Gas O2 Sat % 99.6 %; Venous Blood Gas pCO2 42 mmHg (35-48); Venous Blood Gas pH 7.47 (7.32-7.43); Venous Blood Gas pO2 102 mmHg (30-50)
[2024-03-25 04:56] LABS: % Basophils 0.9 % (0-2); % Eosinophils 1.7 % (0-6); % Immature Granulocytes 0.8 % (0-0.5); % Lymphocytes 13.6 % (20.5-51.1); % Monocytes 7.2 % (1.7-9.3); % Neutrophils 75.8 % (42.2-75.2); Absolute Basophils 0.1 10^3/uL (0-0.2); Absolute Eosinophils 0.2 10^3/uL (0-0.7); Absolute Immature Granulocytes 0.1 10^3/uL (0-0.05); Absolute Lymphocytes 1.6 10^3/uL (1.2-3.4); Absolute Monocytes 0.8 10^3/uL (0.1-0.6); Absolute Neutrophils 8.7 10^3/uL (1.4-6.5); Hematocrit 28.3 % (37.0-47.0); Hemoglobin 9.3 g/dL (12.0-16.0); Mean Corp Hgb Conc. 32.9 g/dL (33.0-37.0); Mean Corpuscular Hgb 28.5 pg (27.0-31.0); Mean Corpuscular Volume 86.8 fL (81.0-99.0); Mean Platelet Volume 11.3 fL (7.4-10.4); Nucleated Red Blood Cells % 0 %; Platelet Count 216 10^3/uL (130-400); Red Blood Cell Count 3.26 10^6/uL (4.20-5.40); White Blood Cell Count 11.5 10^3/uL (4.8-10.8)
[2024-03-25 05:20] LABS: Vancomycin Random 11.4 ug/ml
[2024-03-25 05:45] VITALS: BMI 19.4
[2024-03-25 07:35] VITALS: BP 112/59
--- NOTE | 2024-03-25 08:16 | W.PN.HOSP.TC ---
Today's Communication/Plan
-
Continue IV antibiotics
Follow cultures
Daily labs
Monitor clinically and any hemoptysis
Assessment / Plan
Assessment / Plan
Physical Exam
General: Well Developed, No Apparent Distress and Appears Chronically Ill
HEENT: Normocephalic, Moist mucous membranes and Atraumatic
Respiratory: Rhonchi and Other (Right base bronchial sounds)
Cardiac: S1/S2 and Regular Rhythm
GI: Soft, Non Tender, Non Distended and Normal Bowel Sounds
Musculoskeletal: No Cyanosis and No Edema
Skin: Warm. Dry.
Neuro: Awake, Alert, Oriented, AO x 3 and Nonfocal/grossly intact

IMPRESSION:
73 years old female with history of right lower lobe wedge resection with benign pathology presents with weeks of generalized fatigue, productive cough and hemoptysis.
Right lower lobe pneumonia
Hemoptysis
Failure to thrive with generalized fatigue
Other conditions:
Right thoracotomy with right lower lobe wedge resection 2017 with benign pathology.
End-stage renal disease on hemodialysis Wednesday.
Failed renal transplant .
Anemia of chronic disease.
Polycystic kidney disease with bilateral nephrectomy 2003.
CAD status post CABG 2002.
Ischemic cardiomyopathy with LVEF of 45% (decreased from 60 to 65%)
Chronic hypotension requiring midodrine.
History of PMR currently not on steroids.
History of CVA, status post angioplasty/stent at the left vertebral artery 2019 at [facility].
PAD with left SFA angioplasty and stenting 2012
Valvular disease with mild MR/moderate AI
History of longstanding tobacco abuse, currently not smoking
History of COVID-19 infection
PLAN:
Presenting with weeks of generalized fatigue, productive cough with hemoptysis, occasional right-sided back pain
Afebrile
Exam with right base bronchial sounds.
Noted with mild elevation of WBC - IMPROVING
CT scan findings with large amount of dense airspace consolidation in the basal segments of the right lower lobe most likely a presenting pneumonia (but also cannot rule out malignancy). Bronchial to the distal segments are completely filled with
secretions.
Sputum culture
Blood culture.
Quantify hemoptysis. CAD/PAD/prior CVA on DAPT [employer]. Will continue with caution.
Broad-spectrum antibiotics: Vancomycin/Zosyn/doxycycline adjusted dialysis schedule
Mucolytic's.
Consider chest PT.
Follow-up imaging
Speech and swallow evaluation.
End-stage renal disease with failed transplant
Currently not on immunosuppression.
Polycystic kidney disease with bilateral nephrectomy.
Continue hemodialysis as per schedule.
Continue midodrine
ASCVD: CAD/PAD/history of CVA
Ischemic cardiomyopathy.
Continue preadmission regimen including DAPT, statin.
Continue DAPT
On Imdur
Physical therapy evaluation.
CODE STATUS DNR according to prior records and admissions.
DVT prophylaxis mechanical.
Anticipated Discharge: 24 - 48 hours
Subjective/Interval History
-
Date of Service: March 25, 2024
Patient was seen and examined. She was nauseous this morning, which later resolved.
Objective Data
-
Labs:
Laboratory Results
03/25/24
04:27
WBC 11.5 H
Hgb 9.3 L
Hct 28.3 L
Plt Count 216
Vital Signs:
Vital Signs
Temp Pulse Resp BP Pulse Ox
98.0 F 80 16 98/57 97
03/24/24 23:20 03/24/24 23:20 03/24/24 23:20 03/24/24 23:20 03/24/24 23:20
I&O
03/24/24 03/25/24 03/26/24
06:59 06:59 06:59
Intake Total 480 / 480
Balance 480 / 480
[2024-03-25] MEDS: IMDUR (EXTENDED RELEASE) 30 MG PO (08:39)
[2024-03-25] MEDS: VIBRAMYCIN 100 MG PO ×2 (08:39→20:39)
[2024-03-25] MEDS: PLAVIX 75 MG PO (08:39)
[2024-03-25] MEDS: MUCINEX 600 MG PO ×2 (08:40→20:39)
[2024-03-25] MEDS: ASPIR LOW (ENTERIC COATED) 81 MG PO (08:40)
--- NOTE | 2024-03-25 09:06 | W.PN.NEPH.PH ---
Today's Communication / Plan
-
Continue antibiotics
Assessment/Plan
-
Assessment
ESRD
Right lower lobe consolidation
Right lower lobe nodule
Hypertension
Coronary artery disease with bypass
Peripheral arterial disease
Tertiary hyperparathyroidism
Plan
Next dialysis Wednesday
Will use AV fistula. Plan is for removal of dialysis catheter in the next 2 week
Pulmonary evaluation regarding right lung pathology though this will be difficult until pneumonia has resolved
-
-
Date of Service: March 25, 2024
CC / HPI / ROS
-
Chief Complaint:
ESRD
History of Present Illness:
Tolerated dialysis yesterday
Blood pressure stable
On antibiotics for pneumonia
Anemia stable, hemoglobin 9.3
Review of Systems:
Mild shortness of breath, on supplemental O2
No chest pain
Labs
-
Labs:
WBC 11.5 10^3/uL (4.8-10.8) H 03/25/24 04:27
RBC 3.26 10^6/uL (4.20-5.40) L 03/25/24 04:27
Hgb 9.3 g/dL (12.0-16.0) L 03/25/24 04:27
Hct 28.3 % (37.0-47.0) L 03/25/24 04:27
Plt Count 216 10^3/uL (130-400) 03/25/24 04:27
Sodium 140 mmol/L (135-145) 03/24/24 12:08
Potassium 4.4 mmol/L (3.5-5.1) 03/24/24 12:08
Chloride 92 mmol/L (98-107) L 03/24/24 12:08
Carbon Dioxide 32 mmol/L (22-30) H 03/24/24 12:08
BUN 64 mg/dl (7-17) H 03/24/24 12:08
Creatinine 4.8 mg/dL (0.6-1.0) H* 03/24/24 12:08
eGFR 9.17 03/24/24 12:08
Glucose 103 mg/dl (70-99) H 03/24/24 12:08
Calcium 9.4 mg/dl (8.4-10.2) 03/24/24 12:08
Suf-O-Blaztegcwyi Pept 5340 pg/ml 03/24/24 12:08
Albumin 4.0 g/dl (3.5-5.0) 03/24/24 12:08
Physical Exam
-
Vital Signs:
Vital Signs
Temp Pulse Resp BP Pulse Ox
98.2 F 92 17 112/59 97
03/25/24 07:35 03/25/24 07:35 03/25/24 07:35 03/25/24 07:35 03/25/24 07:35
Cardiovascular:: Regular rate and rhythm
Respiratory:: Bilateral: Coarse
Lung Excursion:: Normal
Abdomen:: Nontender and Soft
Bowel Sounds:: Normal
Extremity Edema:: None: Bilateral:
--- NOTE | 2024-03-25 09:15 | PHA.VAN.FU ---
Vancomycin Assessment / Plan
- Assessment
Hemodialysis Schedule: MWF
WBC's are: Trending Down (13.3>11.5)
In the past 24 hrs, patient has been: Afebrile
Concomitant Antimicrobials: Piperacillin-tazobactam, doxycycline
- Assessment - Therapeutic Drug Monitoring
Random Level: 11.4 drawn ~9.5hrs after vancomycin 1500mg loading dose given
- Dosing Plan
Dosing by Level: Hold off on dosing today (Dose on HD days. Next HD 03/27/24)
- Monitoring Plan
Random Level: Ordered for 03/27/2024 at 06:00
- Follow Up
Pharmacy will continue to follow.
Vancomycin Follow UP
- -
Patient Age: 73
Patient Sex: Female
Vancomycin Day #: 2
Indication: Pulmonary/Respiratory
Requesting Provider: SUJATA
Pertinent Antimicrobial Allergies:
No antibiotic allergies
Height / Weight:
Height 5 ft 8 in
Actual Weight 57.788 kg
IBW in k.9
Pertinent Past Medical History: ESRD on HD, RLL mass w/wedge dissection 2019
- Vital Signs / Lab Results
Temp Pulse Resp BP Pulse Ox
98.2 F 92 17 112/59 97
03/25/24 07:35 03/25/24 07:35 03/25/24 07:35 03/25/24 07:35 03/25/24 07:35
Lab Results - Hematology
03/24/24 03/25/24
12:08 04:27
WBC 13.3 H 11.5 H
Lab Results - Chemistry
03/24/24
12:08
BUN 64 H
Creatinine 4.8 H*
Estimated Creat Clear 10
Albumin 4.0
Therapeutic Drug Monitoring
Random Vancomycin 11.4 ug/ml 03/25/24 04:27
--- NOTE | 2024-03-25 14:22 | W.PN.PUL3 ---
Today's Communication / Plan
-
Continue antibiotics
Consider transition to oral antibiotics in the next 24 hours and complete 7 days
Outpatient pulmonary follow-up
Will need radiographic follow-up
Continue hemodialysis
Assessment
-
Patient is a 73-year-old female with previous history of end-stage renal disease on HD MWF, coronary artery disease, history of right thoracotomy with right lower lobe wedge resection 2019, ischemic cardiomyopathy, stroke presenting to ER with
complaints of 3 to 4 weeks of severe generalized fatigue, productive cough with occasional hemoptysis and right sided back pain. She had prior imaging in the past including at outside hospital demonstrating potential right lower lobe disease that
has not been followed up. CT obtained on this admission showing large right lower lobe consolidation likely pneumonia. We are consulted for eval.
Right lower lobe pneumonia, cannot rule out malignancy
Hemoptysis
Generalized weakness
Productive cough
Right sided back pain
Conditions present prior to admission:
End-stage renal disease on HD
She has declined dialysis in the past, discussed hospice, has not yet agreed
Right upper extremity brachial DVT
Recent hospitalization-discharge 11/04/22-sepsis from E. coli bacteremia
CAD status post CABG-subsequent PCI
Hypertension
Hyperlipidemia�
Chronic kidney disease
Polycystic kidney status post renal transplant-2004
Chronic immunosuppression
Chronic hyperparathyroidism
Hypothyroid
Seizure history
AAA
Aortic dissection
History of TIA
PMR
Osteopenia
Peripheral neuropathy
Restless legs
CVA status post angioplasty and stenting of left vertebral artery 2018
Gait disturbance with left hand weakness following right basal ganglia CVA 2019
Cholecystectomy.� Partial hysterectomy.� Kidney transplant.� Lower extremity stent-left SFA.� Multiple Mohs procedures.� Esophageal repair
Plan
Remains on room air
Leukocytosis improving
Afebrile
Does not appear toxic..
She usually does not follow-up with pulmonary.
Prior history of mild emphysema on CT, last PFT in 2018 without obstruction
She is a former smoker, 30 pack years, quit only 2 years ago. She denies family history of lung cancer.
Right lower lobe consolidation on CAT scan,, may indicate pneumonia but also cannot rule out malignancy
Agree with empiric IV antibiotics. Okay to transition to oral antibiotics tomorrow if cultures are negative. Complete total of 7 days.
Will need outpatient CT imaging. Strongly recommend to follow-up.
If not resolving, may need to have discussion regarding bronchoscopy
She has noted in the past that if she were to have malignancy, she may withdraw from dialysis
Mild hemoptysis is noted
She notes that her degree of hemoptysis is occasional and generally quarter size but not daily
Quantify for now
Hemodialysis per primary team.
proBNP 5340
Prior echo has been reviewed, reduced EF 45%
She has history of ischemic cardiomyopathy
She appears severely deconditioned, failure to thrive
Physical therapy as tolerated.
Hospice has been discussed in the past, she has not been agreeable yet
Patient is DNR
After discharge recommend short-term follow-up with pulmonary to decide on follow-up regarding right lower lobe abnormality discussed with patient and she states that she has problems with transportation.. Not sure social media marketing manager can help.
Still information will be left in the chart.
Diagnostic Data
CXR 12/03/22 - IMPRESSION: Limited exam due to patient rotation. New central line catheter. No pneumothorax. Mild vague bilateral pneumonia. Not significantly changed compared to the exam 2 days ago.
CXR 12/01/22- IMPRESSION: Mild to moderate residual bilateral pneumonia, significantly improved.
CT Chest 11/18/22- IMPRESSION: 1. Moderate to severe multifocal pneumonia throughout all lobes.
Chest 09/15/19- 1. 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 No significant change compared to prior study. The remaining visualized portion of the thoracic and upper abdominal aorta
are of normal caliber.
2. Changes of mild centrilobular emphysema. Prior right lower lobe resection.
3. Small left thyroid nodule, measuring 7 mm in diameter, likely benign.
CT Chest 03/24/24- 1. Large amount of dense airspace consolidation in the basal segments of the right lower lobe most likely representing pneumonia. Bronchi to the basal segments are completely filled with secretions.
2. Chronic postoperative changes right lower lobe as seen on previous examinations. Evaluation for recurrent malignancy is not possible on this examination secondary to the superimposed consolidation.
3. Trace right pleural effusion. As above, some indistinct decreased attenuation superior right lobe of the liver which could be related to reactive edematous/inflammatory change. As warranted, could be further evaluated with follow-up
contrast-enhanced CT abdomen and pelvis after resolution of acute process.
4. Chronic approximately 1 cm nodule in the right lower lobe as detailed above, most likely benign given presence with slight interval increase in size dating back to 2013.
5. Advanced aortic atherosclerosis. Ectasia ascending aorta, 4.[address] AP 11/09/22 - IMPRESSION:
1. � Moderate hydronephrosis of right iliac fossa transplant kidney. No obstructing calculi are identified.
2. � Small bowel lateral pleural effusions with adjacent atelectasis, right greater than left.
3. � Innumerable hepatic cysts and probable cysts.
4. � Small volume of ascites. Anasarca.
5. � Diverticulosis without diverticulitis.
6. � Abdominal aortic aneurysm measuring up to 3.4 cm in diameter.
ECHO 11/11/22- Mildly reduced left ventricular systolic function. Left ventricular ejection fraction is 45%.�Hypokinesis of the basal to mid inferolateral and lateral segments.�Mild/moderate mitral regurgitation.
Moderate aortic regurgitation. ��Mild tricuspid regurgitation. Estimated pulmonary artery pressure of 25-30 mmHg assuming a right atrial pressure of 3 mmHg. �Normal PASP. Compared to 09/15/19: LVEF has declined from 60-65% to 45%; there
is�inferolateral and lateral hypokinesis; and AR has progressed from mild/moderate�to moderate.
PFT 10/06/17: FEV1 2.35L 82%, FVC 3.21L 86%, ratio 73. TLC 4.76L 84%, DLCO 45% (normal reza/volumes, moderate diffusion impairment)
Reports and relevant images were personally reviewed.
-----
.
Subjective Data
-
Date of Service:
Date of Service: March 25, 2024
Chief Complaint: Pulmonary Follow Up (Pneumonia)
Subjective:
No overnight events
Denies hemoptysis.
Denies significant phlegm production.
Review of Systems
Cardiopulmonary: Dyspnea (none at rest)
GI: Abdominal Pain (n) and Nausea (n)
Neuro: Headache (n)
Objective Data
Data Reviewed
Vital Signs / I&O / Oxygen:
Vital Signs
Temp Pulse Resp BP Pulse Ox
98.2 F 92 17 112/59 96
03/25/24 07:35 03/25/24 07:35 03/25/24 07:35 03/25/24 07:35 03/25/24 13:46
Intake and Output
03/24/24 03/25/24 03/26/24
06:59 06:59 06:59
Intake Total 480 / 480
Balance 480 / 480
SaO2 96
Labs/Micro/Reports
Lab Data
03/25/24 04:27
03/24/24 12:08
[2024-03-25 15:46] VITALS: BP 112/62
[2024-03-25] MEDS: SENSIPAR 60 MG PO (18:28)
[2024-03-25] MEDS: CYMBALTA DELAYED RELEASE 60 MG PO (22:04)
[2024-03-25] MEDS: LIPITOR 40 MG PO (22:04)
[2024-03-25] MEDS: TIGAN 200 MG IM (22:35)
[2024-03-25 23:04] VITALS: BP 116/73
[2024-03-26] MEDS: ZOSYN 50 IV ×2 (04:10→13:02)
[2024-03-26 06:00] VITALS: BMI 19.1
[2024-03-26 07:25] VITALS: BP 128/62
[2024-03-26] MEDS: ROXICODONE 5 MG PO ×2 (08:15→16:15)
[2024-03-26] MEDS: VIBRAMYCIN 100 MG PO ×2 (08:15→20:32)
[2024-03-26] MEDS: PLAVIX 75 MG PO (08:15)
[2024-03-26] MEDS: ASPIR LOW (ENTERIC COATED) 81 MG PO (08:15)
[2024-03-26] MEDS: MUCINEX 600 MG PO ×2 (08:15→20:32)
[2024-03-26] MEDS: IMDUR (EXTENDED RELEASE) 30 MG PO (08:15)
[2024-03-26 09:24] LABS: % Eosinophils 2.1 % (0-6); % Immature Granulocytes 0.5 % (0-0.5); % Lymphocytes 15.2 % (20.5-51.1); % Monocytes 7.8 % (1.7-9.3); % Neutrophils 73.4 % (42.2-75.2); Absolute Basophils 0.1 10^3/uL (0-0.2); Absolute Eosinophils 0.2 10^3/uL (0-0.7); Absolute Immature Granulocytes 0.1 10^3/uL (0-0.05); Absolute Lymphocytes 1.7 10^3/uL (1.2-3.4); Absolute Monocytes 0.9 10^3/uL (0.1-0.6); Absolute Neutrophils 8.3 10^3/uL (1.4-6.5); Hematocrit 28.4 % (37.0-47.0); Hemoglobin 9.3 g/dL (12.0-16.0); Mean Corp Hgb Conc. 32.7 g/dL (33.0-37.0); Mean Corpuscular Hgb 29.2 pg (27.0-31.0); Mean Platelet Volume 11.4 fL (7.4-10.4); Nucleated Red Blood Cells % 0 %; Platelet Count 216 10^3/uL (130-400); Red Blood Cell Count 3.19 10^6/uL (4.20-5.40); Red Cell Dist. Width 15.8 % (11.5-14.5); White Blood Cell Count 11.3 10^3/uL (4.8-10.8)
[2024-03-26 09:39] LABS: ALT (SGPT) 17 U/L (0-35); AST (SGOT) 21 U/L (14-36); Alkaline Phosphatase 113 U/L (38-126); Blood Urea Nitrogen 46 mg/dl (7-17); Calcium 8.7 mg/dl (8.4-10.2); Carbon Dioxide 27 mmol/L (22-30); Chloride 95 mmol/L (98-107); Estimated Creatinine Clearance 11 ml/min; Glucose 93 mg/dl (70-99); Potassium 3.9 mmol/L (3.5-5.1); Sodium 138 mmol/L (135-145); Total Bilirubin 1.1 mg/dl (0.2-1.3); Total Protein 6.5 g/dl (6.3-8.2); eGFR 10.46
--- NOTE | 2024-03-26 12:50 | W.PN.HOSP.TC ---
Today's Communication/Plan
-
Transition to oral antibiotics, started Augmentin and Doxycycline as per pulmonary recommendations
Patient says she feels too weak to go home today
PT/OT
Possible SNF
Assessment / Plan
Assessment / Plan
Physical Exam
General: Well Developed, No Apparent Distress and Appears Chronically Ill
HEENT: Normocephalic, Moist mucous membranes and Atraumatic
Respiratory: Rhonchi and Other (Right base bronchial sounds)
Cardiac: S1/S2 and Regular Rhythm
GI: Soft, Non Tender, Non Distended and Normal Bowel Sounds
Musculoskeletal: No Cyanosis and No Edema
Skin: Warm. Dry.
Neuro: Awake, Alert, Oriented, AO x 3 and Nonfocal/grossly intact

IMPRESSION:
73 years old female with history of right lower lobe wedge resection with benign pathology presents with weeks of generalized fatigue, productive cough and hemoptysis.
Right lower lobe pneumonia
Hemoptysis
Failure to thrive with generalized fatigue
Other conditions:
Right thoracotomy with right lower lobe wedge resection 2017 with benign pathology.
End-stage renal disease on hemodialysis Wednesday.
Failed renal transplant .
Anemia of chronic disease.
Polycystic kidney disease with bilateral nephrectomy 2003.
CAD status post CABG 2002.
Ischemic cardiomyopathy with LVEF of 45% (decreased from 60 to 65%)
Chronic hypotension requiring midodrine.
History of PMR currently not on steroids.
History of CVA, status post angioplasty/stent at the left vertebral artery 2019 at [facility].
PAD with left SFA angioplasty and stenting 2012
Valvular disease with mild MR/moderate AI
History of longstanding tobacco abuse, currently not smoking
History of COVID-19 infection
PLAN:
Presenting with weeks of generalized fatigue, productive cough with hemoptysis, occasional right-sided back pain
Afebrile
Exam with right base bronchial sounds.
Noted with mild elevation of WBC - IMPROVING
CT scan findings with large amount of dense airspace consolidation in the basal segments of the right lower lobe most likely a presenting pneumonia (but also cannot rule out malignancy). Bronchial to the distal segments are completely filled with
secretions.
Sputum culture
Blood culture.
Quantify hemoptysis. CAD/PAD/prior CVA on DAPT [employer]. Will continue with caution.
Broad-spectrum antibiotics given initially Vancomycin/Zosyn/doxycycline adjusted dialysis schedule --> now Vanco and Zosyn stopped --> started Augmentin and continued Doxycycline as per pulmonary recommendations
Mucolytic's.
Consider chest PT.
Follow-up imaging
Speech and swallow evaluation.
End-stage renal disease with failed transplant
Currently not on immunosuppression.
Polycystic kidney disease with bilateral nephrectomy.
Continue hemodialysis as per schedule.
Continue midodrine
ASCVD: CAD/PAD/history of CVA
Ischemic cardiomyopathy.
Continue preadmission regimen including DAPT, statin.
Continue DAPT
On Imdur
Physical therapy evaluation.
CODE STATUS DNR according to prior records and admissions.
DVT prophylaxis mechanical.
Anticipated Discharge: Within 24 hours
Subjective/Interval History
-
Date of Service: March 26, 2024
Patient was seen and examined. She reported no nausea, says she felt a little better but stated she feels she is too weak to go home today.
Objective Data
-
Labs:
Laboratory Results
03/26/24
09:02
WBC 11.3 H
Hgb 9.3 L
Hct 28.4 L
Plt Count 216
Sodium 138
Potassium 3.9
Chloride 95 L
Carbon Dioxide 27
BUN 46 H
Creatinine 4.3 H*
Glucose 93
Calcium 8.7
Total Bilirubin 1.1
AST 21
ALT 17
Alkaline Phosphatase 113
Vital Signs:
Vital Signs
Temp Pulse Resp BP Pulse Ox
97.6 F 74 14 128/62 97
03/26/24 07:25 03/26/24 07:25 03/26/24 07:25 03/26/24 07:25 03/26/24 07:25
I&O
03/25/24 03/26/24 03/27/24
06:59 06:59 06:59
Intake Total 480 / 480 1200 / 1200
Balance 480 / 480 1200 / 1200
--- NOTE | 2024-03-26 13:29 | W.PN.PUL3 ---
Today's Communication / Plan
-
Clinically improved
Information was left in the chart to follow-up
Consider transition to oral antibiotics and complete total 7 days of antibiotics
Sign off
Assessment
-
Patient is a 73-year-old female with previous history of end-stage renal disease on HD MWF, coronary artery disease, history of right thoracotomy with right lower lobe wedge resection 2019, ischemic cardiomyopathy, stroke presenting to ER with
complaints of 3 to 4 weeks of severe generalized fatigue, productive cough with occasional hemoptysis and right sided back pain. She had prior imaging in the past including at outside hospital demonstrating potential right lower lobe disease that
has not been followed up. CT obtained on this admission showing large right lower lobe consolidation likely pneumonia. We are consulted for eval.
Right lower lobe pneumonia, cannot rule out malignancy
Hemoptysis
Generalized weakness
Productive cough
Right sided back pain
Conditions present prior to admission:
End-stage renal disease on HD
She has declined dialysis in the past, discussed hospice, has not yet agreed
Right upper extremity brachial DVT
Recent hospitalization-discharge 11/04/22-sepsis from E. coli bacteremia
CAD status post CABG-subsequent PCI
Hypertension
Hyperlipidemia�
Chronic kidney disease
Polycystic kidney status post renal transplant-2004
Chronic immunosuppression
Chronic hyperparathyroidism
Hypothyroid
Seizure history
AAA
Aortic dissection
History of TIA
PMR
Osteopenia
Peripheral neuropathy
Restless legs
CVA status post angioplasty and stenting of left vertebral artery 2018
Gait disturbance with left hand weakness following right basal ganglia CVA 2018
Cholecystectomy.� Partial hysterectomy.� Kidney transplant.� Lower extremity stent-left SFA.� Multiple Mohs procedures.� Esophageal repair
Plan
From the pulmonary perspective stableovernight.
Remains on room air
Leukocytosis improving
remains afebrile
Does not appear toxic..
She usually does not follow-up with pulmonary.
Prior history of mild emphysema on CT, last PFT in 2018 without obstruction
She is a former smoker, 30 pack years, quit only 2 years ago. She denies family history of lung cancer.
Right lower lobe consolidation on CAT scan,, may indicate pneumonia but also cannot rule out malignancy
Consider transition to oral antibiotics today. Doxycycline/ Augmentin may be reasonable- complete total of 7 days.
Will need outpatient CT imaging. Strongly recommend to follow-up.
If not resolving, may need to have discussion regarding bronchoscopy
She has noted in the past that if she were to have malignancy, she may withdraw from dialysis
Mild hemoptysis resolved.
Hemodialysis to continue.
Nephrology following
Prior echo has been reviewed, reduced EF 45%
She has history of ischemic cardiomyopathy
She appears severely deconditioned, failure to thrive
Physical therapy as tolerated.
Hospice has been discussed in the past, she has not been agreeable yet
Patient is DNR
After discharge recommend short-term follow-up with pulmonary to decide on follow-up regarding right lower lobe abnormality discussed with patient and she states that she has problems with transportation.. Not sure social work administrator can help.
Still information will be left in the chart.
-
No additional recommendation from the pulmonary perspective.
At this point we will sign off.
Diagnostic Data
CXR 12/03/22 - IMPRESSION: Limited exam due to patient rotation. New central line catheter. No pneumothorax. Mild vague bilateral pneumonia. Not significantly changed compared to the exam 2 days ago.
CXR 12/01/22- IMPRESSION: Mild to moderate residual bilateral pneumonia, significantly improved.
CT Chest 11/18/22- IMPRESSION: 1. Moderate to severe multifocal pneumonia throughout all lobes.
Chest 09/15/19- 1. 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 No significant change compared to prior study. The remaining visualized portion of the thoracic and upper abdominal aorta
are of normal caliber.
2. Changes of mild centrilobular emphysema. Prior right lower lobe resection.
3. Small left thyroid nodule, measuring 7 mm in diameter, likely benign.
CT Chest 03/24/24- 1. Large amount of dense airspace consolidation in the basal segments of the right lower lobe most likely representing pneumonia. Bronchi to the basal segments are completely filled with secretions.
2. Chronic postoperative changes right lower lobe as seen on previous examinations. Evaluation for recurrent malignancy is not possible on this examination secondary to the superimposed consolidation.
3. Trace right pleural effusion. As above, some indistinct decreased attenuation superior right lobe of the liver which could be related to reactive edematous/inflammatory change. As warranted, could be further evaluated with follow-up
contrast-enhanced CT abdomen and pelvis after resolution of acute process.
4. Chronic approximately 1 cm nodule in the right lower lobe as detailed above, most likely benign given presence with slight interval increase in size dating back to 2013.
5. Advanced aortic atherosclerosis. Ectasia ascending aorta, 4.[address] AP 11/09/22 - IMPRESSION:
1. � Moderate hydronephrosis of right iliac fossa transplant kidney. No obstructing calculi are identified.
2. � Small bowel lateral pleural effusions with adjacent atelectasis, right greater than left.
3. � Innumerable hepatic cysts and probable cysts.
4. � Small volume of ascites. Anasarca.
5. � Diverticulosis without diverticulitis.
6. � Abdominal aortic aneurysm measuring up to 3.4 cm in diameter.
ECHO 11/11/22- Mildly reduced left ventricular systolic function. Left ventricular ejection fraction is 45%.�Hypokinesis of the basal to mid inferolateral and lateral segments.�Mild/moderate mitral regurgitation.
Moderate aortic regurgitation. ��Mild tricuspid regurgitation. Estimated pulmonary artery pressure of 25-30 mmHg assuming a right atrial pressure of 3 mmHg. �Normal PASP. Compared to 09/15/19: LVEF has declined from 60-65% to 45%; there
is�inferolateral and lateral hypokinesis; and AR has progressed from mild/moderate�to moderate.
PFT 10/06/17: FEV1 2.35L 82%, FVC 3.21L 86%, ratio 73. TLC 4.76L 84%, DLCO 45% (normal reza/volumes, moderate diffusion impairment)
Reports and relevant images were personally reviewed.
-----
.
Subjective Data
-
Date of Service:
Date of Service: March 26, 2024
Chief Complaint: Pulmonary Follow Up (Pneumonia)
Subjective:
No overnight events, remains on room air.
Occasionally coughing.
Denies hemoptysis.
Remains afebrile
Review of Systems
Cardiopulmonary: Dyspnea (none at restn)
GI: Abdominal Pain (n), Nausea (n) and Vomiting (n)
Objective Data
Data Reviewed
Vital Signs / I&O / Oxygen:
Vital Signs
Temp Pulse Resp BP Pulse Ox
97.6 F 74 14 128/62 97
03/26/24 07:25 03/26/24 07:25 03/26/24 07:25 03/26/24 07:25 03/26/24 07:25
Intake and Output
03/25/24 03/26/24 03/27/24
06:59 06:59 06:59
Intake Total 480 / 480 1200 / 1200
Balance 480 / 480 1200 / 1200
SaO2 97
Physical Exam
General: Comfortable
HEENT: Normocephalic
Cardiovascular: S1-S2
Respiratory: Clear and Non-Labored Respirations
GI: Soft and Non Distended
Neurology: Awake
Labs/Micro/Reports
Lab Data
03/26/24 09:02
03/26/24 09:02
Microbiology
03/24/24 16:46 Nose MRSA Screen - Final
No Methicillin Resistant Staphylococcus aureus isolated.
03/24/24 16:43 Blood/Venous Blood Culture - Preliminary
No Growth in 24 hours- Final report to follow
[2024-03-26 15:05] VITALS: BP 140/62
[2024-03-26 15:25] VITALS: BP 104/50
--- NOTE | 2024-03-26 16:25 | PTCARENOTE ---
Pt. c/o of R sided flank pain unrelieved by prn pain medication. Patient receiving prn 5 mg oxycodone q 8 hrs. Patient has had pain x 1 month. MD made aware of information. MD ordered 1 x dose of Dilaudid IV 0.25 mg. Will administer and recheck
pain.
[2024-03-26] MEDS: SENSIPAR 60 MG PO (18:00)
[2024-03-26] MEDS: DILAUDID 0.25 MG IV (18:01)
[2024-03-26] MEDS: AUGMENTIN 500 MG/125 MG 1 TABLET PO (20:32)
[2024-03-26] MEDS: CYMBALTA DELAYED RELEASE 60 MG PO (21:20)
[2024-03-26] MEDS: LIPITOR 40 MG PO (21:20)
[2024-03-26 23:43] VITALS: BP 105/56
[2024-03-27] MEDS: ROXICODONE 5 MG PO ×3 (01:14→21:10)
[2024-03-27 06:00] VITALS: BMI 19.2
[2024-03-27 06:13] VITALS: BMI 19.2
[2024-03-27 07:40] VITALS: BP 132/66
--- NOTE | 2024-03-27 08:30 | PTCARENOTE ---
Pt. c/o of N/V and R flank pain. Pt has had R flank pain x 1 month. MD aware. Pt has also had N/V intermittently whole stay. Pt with prolonged QT so unable to receive IV Zofran/ Compazine. Patient received one time dose of IV Tigan on 03/25/24 but
refuses to receive another dose. Patient states she believes N/V is from R flank pain when prn pain medicine wears off. Patient receives prn Oxycodone 5 mg q 8 hrs. VSS. made aware. evaluating patient on rounds. Patient scheduled for dialysis
at 1200.
[2024-03-27] MEDS: AUGMENTIN 500 MG/125 MG 1 TABLET PO ×2 (08:35→21:07)
[2024-03-27] MEDS: MUCINEX 600 MG PO ×2 (08:35→20:46)
[2024-03-27] MEDS: ASPIR LOW (ENTERIC COATED) 81 MG PO (08:35)
[2024-03-27] MEDS: IMDUR (EXTENDED RELEASE) 30 MG PO (08:35)
[2024-03-27] MEDS: PLAVIX 75 MG PO (08:35)
[2024-03-27] MEDS: VIBRAMYCIN 100 MG PO ×2 (08:35→20:46)
[2024-03-27] MEDS: EMLA CREAM 1 GRAM TOPICAL (11:11)
--- NOTE | 2024-03-27 11:56 | W.PN.HOSP.TC ---
Today's Communication/Plan
-
see A/P
Assessment / Plan
Assessment / Plan
HPI: 73 years old female with history of right lower lobe wedge resection with benign pathology, ESRD on HD; presented with weeks of generalized fatigue, productive cough and hemoptysis.
A/P:
# Right lower lobe pneumonia with mild hemoptysis, productive cough with hemoptysis, occasional right-sided back pain
CT scan findings with large amount of dense airspace consolidation in the basal segments of the right lower lobe most likely presenting pneumonia (but also cannot rule out malignancy). Bronchial to the distal segments are completely filled with
secretions.
MRSA screen negative, blood culture negative
Hemoptysis has resolved
broad-spectrum antibiotics Vancomycin/Zosyn/doxycycline -> Augmentin and Doxycycline
Appreciate pulm input
Speech and swallow evaluation.
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
# PAD with left SFA angioplasty and stenting 2012
# h/o CABG 2002
# Ischemic cardiomyopathy with LVEF of 45% (decreased from 60 to 65%)
Continue DAPT with caution.
Continue MASTER CONTROL TECHNICIAN statin, Imdur
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
# Anemia of chronic disease.
Currently not on immunosuppression.
hemodialysis Wednesday.
# Polycystic kidney disease with bilateral nephrectomy 2003
Continue hemodialysis as per schedule.
Continue midodrine
# Failure to thrive with generalized fatigue
PT recc SNF
# R flank pain likely MSL in etiology
trial of lidocaine patch
Oxycodone PRN
Other medical conditions:
# Right thoracotomy with right lower lobe wedge resection 2017 with benign pathology.
# Chronic hypotension requiring midodrine.
# History of PMR currently not on steroids.
# History of CVA, status post angioplasty/stent at the left vertebral artery 2019 at [facility].
# Valvular disease with mild MR/moderate AI
# History of longstanding tobacco abuse, currently not smoking
# History of COVID-19 infection
CODE STATUS DNR according to prior records and admissions.
DVT prophylaxis: HSQ with resolution of hemoptysis
Dispo: PT recc SNF
DW RN
DW CM
total time spent 51 min
Anticipated Discharge: 24 - 48 hours
Subjective/Interval History
-
Date of Service: March 27, 2024
Objective Data
-
Labs:
Laboratory Results
03/27/24
07:00
WBC Pending
Hgb Pending
Hct Pending
Plt Count Pending
Sodium Pending
Potassium Pending
Chloride Pending
Carbon Dioxide Pending
BUN Pending
Creatinine Pending
Glucose Pending
Calcium Pending
Vital Signs:
Vital Signs
Temp Pulse Resp BP Pulse Ox
36.8 C 76 17 132/66 100
03/27/24 07:40 03/27/24 07:40 03/27/24 07:40 03/27/24 07:40 03/27/24 09:01
I&O
03/26/24 03/27/24 03/28/24
06:59 06:59 06:59
Intake Total 1200 / 1200 1200 / 1200
Balance 1200 / 1200 1200 / 1200
Review of Systems
-
Musculoskeletal: Reports Other (R flank muscular pain)
Physical Exam
-
General: Well Developed, Well Nourished, No Apparent Distress, Comfortable, Conversant and Appears Chronically Ill
HEENT: Normocephalic and Atraumatic; Negative Oxygen
Respiratory: Clear to Auscultation and Non Labored Respirations; Negative Accessory Resp Muscle Use
Cardiac: Regular Rhythm and S1/S2; Negative Murmur
GI: Soft, Nontender and Nondistended
Musculoskeletal: No Edema
Skin: Warm
Neuro: Awake, Alert and Oriented
Psych: Calm and Intact Judgement/Insight
Data Reviewed
-
Labs: Labs Reviewed by me
[2024-03-27] MEDS: LIDOCAINE 4% PATCH 1 PATCH TOPICAL (12:45)
[2024-03-27] MEDS: ProAmatine 10 MG PO ×2 (13:04→17:26)
[2024-03-27 13:29] LABS: % Basophils 0.7 % (0-2); % Eosinophils 1.2 % (0-6); % Immature Granulocytes 0.9 % (0-0.5); % Lymphocytes 11.8 % (20.5-51.1); % Monocytes 6.6 % (1.7-9.3); % Neutrophils 78.8 % (42.2-75.2); Absolute Basophils 0.1 10^3/uL (0-0.2); Absolute Eosinophils 0.2 10^3/uL (0-0.7); Absolute Immature Granulocytes 0.1 10^3/uL (0-0.05); Absolute Lymphocytes 1.5 10^3/uL (1.2-3.4); Absolute Monocytes 0.8 10^3/uL (0.1-0.6); Absolute Neutrophils 10.1 10^3/uL (1.4-6.5); Hematocrit 26.9 % (37.0-47.0); Hemoglobin 9.1 g/dL (12.0-16.0); Mean Corp Hgb Conc. 33.8 g/dL (33.0-37.0); Mean Corpuscular Hgb 28.7 pg (27.0-31.0); Mean Corpuscular Volume 84.9 fL (81.0-99.0); Mean Platelet Volume 11.5 fL (7.4-10.4); Nucleated Red Blood Cells % 0 %; Platelet Count 252 10^3/uL (130-400); Red Blood Cell Count 3.17 10^6/uL (4.20-5.40); Red Cell Dist. Width 15.7 % (11.5-14.5); White Blood Cell Count 12.8 10^3/uL (4.8-10.8)
[2024-03-27] MEDS: RETACRIT 10000 UNITS IV (13:29)
[2024-03-27 13:50] LABS: Blood Urea Nitrogen 60 mg/dl (7-17); Calcium 8.4 mg/dl (8.4-10.2); Carbon Dioxide 23 mmol/L (22-30); Chloride 96 mmol/L (98-107); Estimated Creatinine Clearance 8 ml/min; Glucose 103 mg/dl (70-99); Sodium 136 mmol/L (135-145); eGFR 7.79
--- NOTE | 2024-03-27 13:55 | W.PN.NEPH.HD ---
Assessment
-
Patient seen on HD
sbp low at current u/f
avf with some needle position issues today, used catheter today will reattempt AVF next HD
patient deteriorating, not eating well, describes persistent right RLQ pain: would consider CT of abdomen and pelvis
Progress Note - Hemodialysis
-
Date of Service: March 27, 2024
Duration: 30 minutes and 3 hours
Potassium Bath: 2
Calcium Bath: 2.5
Opti-Dialyzer: 160
Ultrafiltration: Other (.5kg (patient below eDW))
Blood Flow: 400
Dialysate Flow: 600
Heparin: none
EPO: 10K
[2024-03-27 15:42] VITALS: BP 114/66
[2024-03-27] MEDS: SENSIPAR 60 MG PO (17:26)
[2024-03-27] MEDS: FLEXERIL 5 MG PO (19:17)
[2024-03-27] MEDS: CYMBALTA DELAYED RELEASE 60 MG PO (20:45)
[2024-03-27] MEDS: LIPITOR 40 MG PO (21:07)
[2024-03-27] MEDS: HEPARIN 5000 UNITS SC (21:07)
[2024-03-27] MEDS: ProAmatine PO (22:44)
[2024-03-27 23:16] VITALS: BP 162/83
[2024-03-28 03:29] VITALS: BP 114/61
[2024-03-28] MEDS: OMNIPAQUE 50 ML PO (05:45)
[2024-03-28 05:58] VITALS: BMI 18.7
[2024-03-28] MEDS: ROXICODONE 5 MG PO ×2 (06:11→16:56)
[2024-03-28 07:59] VITALS: BP 122/73
[2024-03-28] MEDS: AUGMENTIN 500 MG/125 MG 1 TABLET PO ×2 (09:09→20:32)
[2024-03-28] MEDS: VIBRAMYCIN 100 MG PO ×2 (09:09→20:32)
[2024-03-28] MEDS: ASPIR LOW (ENTERIC COATED) 81 MG PO (09:09)
[2024-03-28] MEDS: MUCINEX 600 MG PO ×2 (09:09→20:33)
[2024-03-28] MEDS: IMDUR (EXTENDED RELEASE) 30 MG PO (09:09)
[2024-03-28] MEDS: LIDOCAINE 4% PATCH TOPICAL ×2 (09:10→09:18)
[2024-03-28] MEDS: PLAVIX 75 MG PO (09:10)
[2024-03-28] MEDS: HEPARIN 5000 UNITS SC ×2 (09:10→20:33)
[2024-03-28 09:31] LABS: % Basophils 0.9 % (0-2); % Eosinophils 1.2 % (0-6); % Immature Granulocytes 0.5 % (0-0.5); % Monocytes 8.4 % (1.7-9.3); Absolute Basophils 0.1 10^3/uL (0-0.2); Absolute Eosinophils 0.1 10^3/uL (0-0.7); Absolute Immature Granulocytes 0.1 10^3/uL (0-0.05); Absolute Lymphocytes 1.9 10^3/uL (1.2-3.4); Absolute Monocytes 0.9 10^3/uL (0.1-0.6); Absolute Neutrophils 7.6 10^3/uL (1.4-6.5); Hemoglobin 9.9 g/dL (12.0-16.0); Mean Corpuscular Hgb 28.7 pg (27.0-31.0); Mean Platelet Volume 10.5 fL (7.4-10.4); Nucleated Red Blood Cells % 0 %; Platelet Count 270 10^3/uL (130-400); Red Blood Cell Count 3.45 10^6/uL (4.20-5.40); Red Cell Dist. Width 15.9 % (11.5-14.5); White Blood Cell Count 10.8 10^3/uL (4.8-10.8)
[2024-03-28 10:09] LABS: Blood Urea Nitrogen 37 mg/dl (7-17); Calcium 8.9 mg/dl (8.4-10.2); Carbon Dioxide 27 mmol/L (22-30); Chloride 94 mmol/L (98-107); Estimated Creatinine Clearance 11 ml/min; Glucose 90 mg/dl (70-99); Potassium 3.9 mmol/L (3.5-5.1); Sodium 137 mmol/L (135-145); eGFR 11.08
--- NOTE | 2024-03-28 10:52 | W.PN.HOSP.TC ---
Today's Communication/Plan
-
see A/P
Assessment / Plan
Assessment / Plan
HPI: 73 years old female with history of right lower lobe wedge resection with benign pathology, ESRD on HD; presented with weeks of generalized fatigue, productive cough and hemoptysis.
A/P:
# Right lower lobe pneumonia with mild hemoptysis, productive cough with hemoptysis, occasional right-sided back pain
CT scan findings with large amount of dense airspace consolidation in the basal segments of the right lower lobe most likely presenting pneumonia (but also cannot rule out malignancy). Bronchial to the distal segments are completely filled with
secretions.
MRSA screen negative, blood culture negative
Hemoptysis has resolved
broad-spectrum antibiotics Vancomycin/Zosyn/doxycycline -> Augmentin and Doxycycline
Appreciate pulm input
# R flank pain likely MSL in etiology
started trial of lidocaine patch
added Flexeril HS PRN
Cont Oxycodone PRN
Check CT AP
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
# PAD with left SFA angioplasty and stenting 2012
# h/o CABG 2002
# Ischemic cardiomyopathy with LVEF of 45% (decreased from 60 to 65%)
Continue DAPT with caution.
Continue MENTAL HEALTH NURSE PRACTITIONER statin, Imdur
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
# Anemia of chronic disease.
Currently not on immunosuppression.
hemodialysis Wednesday.
# Polycystic kidney disease with bilateral nephrectomy 2003
Continue hemodialysis as per schedule.
Continue midodrine
# Failure to thrive with generalized fatigue
PT recc SNF
Other medical conditions:
# Right thoracotomy with right lower lobe wedge resection 2017 with benign pathology.
# Chronic hypotension requiring midodrine.
# History of PMR currently not on steroids.
# History of CVA, status post angioplasty/stent at the left vertebral artery 2019 at [facility].
# Valvular disease with mild MR/moderate AI
# History of longstanding tobacco abuse, currently not smoking
# History of COVID-19 infection
CODE STATUS DNR according to prior records and admissions.
DVT prophylaxis: HSQ with resolution of hemoptysis
Dispo: PT recc SNF
DW RN
Anticipated Discharge: Within 24 hours
Subjective/Interval History
-
Date of Service: March 28, 2024
Objective Data
-
Labs:
Laboratory Results
03/28/24
09:22
WBC 10.8
Hgb 9.9 L
Hct 30.0 L
Plt Count 270
Sodium 137
Potassium 3.9
Chloride 94 L
Carbon Dioxide 27
BUN 37 H
Creatinine 4.1 H*
Glucose 90
Calcium 8.9
Vital Signs:
Vital Signs
Temp Pulse Resp BP Pulse Ox
36.7 C 81 20 122/73 95
03/28/24 07:59 03/28/24 07:59 03/28/24 07:59 03/28/24 07:59 03/28/24 07:59
I&O
03/27/24 03/28/24 03/29/24
06:59 06:59 06:59
Intake Total 1200 / 1200 480 / 480
Balance 1200 / 1200 480 / 480
Review of Systems
-
Musculoskeletal: Reports Other (R flank muscular pain improved with flexeril )
Physical Exam
-
General: Well Developed, Well Nourished, No Apparent Distress, Comfortable, Conversant and Appears Chronically Ill
HEENT: Normocephalic and Atraumatic; Negative Oxygen
Respiratory: Clear to Auscultation and Non Labored Respirations; Negative Accessory Resp Muscle Use
Cardiac: Regular Rhythm and S1/S2; Negative Murmur
GI: Soft, Nontender and Nondistended
Musculoskeletal: No Edema
Skin: Warm
Neuro: Awake, Alert and Oriented
Psych: Calm and Intact Judgement/Insight
Data Reviewed
-
Labs: Labs Reviewed by me
[2024-03-28] MEDS: NSS 500 IV (11:42)
--- NOTE | 2024-03-28 11:45 | PTCARENOTE ---
CAT abd report back. MD made aware. MD updated patient over phone. Oncology consulted. Pt still c/o of r flank pain and vomiting. Patient also having hemoptysis. made aware. No new orders at this time
--- NOTE | 2024-03-28 15:54 | CON.ONC ---
Impression
Impression
right lower lobe lung mass, contiguous with right liver mass
ESRD on HD MWF
failed renal transplant, polycystic kidney disease
CAD, CVA, CHF
Plan
Plan
Reviewed CT images, suspicious for malignancy involving RLL and right lobe of liver
Discussed biopsy to evaluate further, to be done in IR. Patient agreeable. Plavix will need to be held x5 days prior. Would hold ASA as well.
Discussed possible biopsy results. She states she would want hospice if biopsy shows cancer. She would also likely choose hospice if biopsy shows benign findings.
Pain mgmt
Will follow peripherally.
Patient History
History of Present Illness
Asked to see patient regarding suspicious continuguous mass in right lower lung and right liver, concerning for malignancy. She has a history of right lung wedge resection years ago, benign per patient. She's been on HD for the past 6 months after
kidney transplant failed (after 20 years), w/ h/o polycystic kidney disease.
She presented to on 03/24/24 with increasing shortness of breath, right flank pain and chronic cough. Chest CT revealed a dense consolidation in the RLL, most likely pneumonia. Decreased attenuation in the right lobe of liver was noted, for which
CT A/P was obtained, showing: in the posterior and inferior right lower lobe of the lung and extending into the adjacent posterior and superior right liver, there is a heterogeneously enhancing rounded density, which likely represents a mass, and is
highly suspicious for neoplasia.
Past-Medical/Surgical History
Past Medical History
Past Medical History: Reports CAD, CHF, CVA and Other (End-stage renal disease on HD. Right lower lobe mass with wedge resection (benign per patient. Failed renal transplant. Polycystic kidney disease.)
Past Surgical History: Reports Other (CABG, right lower lobe wedge resection. AV fistula, renal transplant)
Social History
Tobacco: Former Smoker
Living: alone, has a friend who helps with transportation
Employment: Disabled
Family History
Family History: Not pertinent
Patient Medication
�Medication �Instructions �Recorded �Confirmed �Last Taken �Type
atorvastatin 40 mg tablet 40 mg PO HS High cholesterol 11/04/12 03/24/24 03/23/24 History
aspirin 81 mg tablet,delayed 81 mg PO DAILY Blood clot 10/14/15 03/24/24 03/23/24 History
release prevention/tx
clopidogrel 75 mg tablet 75 mg PO DAILY Blood clot 10/27/22 03/24/24 03/23/24 History
prevention/tx
midodrine 10 mg tablet 10 mg PO MOWEFR@1400 hypotension 04/02/23 03/24/24 02/14/24 13:00 History
isosorbide mononitrate 30 mg 30 mg PO DAILY Heart 10/14/23 03/24/24 03/23/24 History
tablet,extended release 24 hr Disease/Condition
duloxetine 60 mg capsule,delayed 60 mg PO HS Depression 10/19/23 03/24/24 03/23/24 History
release (Cymbalta)
cinacalcet 60 mg tablet (Sensipar) 60 mg PO QPM Kidney Disease 02/15/24 03/24/24 03/23/24 History
Active Medications
Generic Name Dose Route Start Last Admin
Trade Name Freq PRN Reason Stop Dose Admin
Acetaminophen 650 mg 03/24/24 18:07
Acetaminophen 325 Mg Tablet PO 04/21/24 18:06
Q4HPRN PRN
pain, mild
Albuterol/Ipratropium 3 ml 03/24/24 15:37
Ipratropium 0.5/Albuterol 3 Mg (3 Ml Ampul) INH
R Q4HPRN PRN
wheezing
Protocol
Amoxicillin/Clavulanate Potassium 1 tablet 03/26/24 20:00 03/28/24 09:09
Amoxicillin (500 Mg)/Clavulanate (125 Mg) Tablet PO 1 tablet
Q12 PAPA Administration
Aspirin 81 mg 03/25/24 08:00 03/28/24 09:09
Aspirin 81 Mg (Enteric Coated) Tablet PO 04/22/24 07:59 81 mg
DAILY PAPA Administration
Atorvastatin Calcium 40 mg 03/24/24 22:00 03/27/24 21:07
Atorvastatin (Lipitor) 40 Mg Tablet PO 04/21/24 21:59 40 mg
HS PAPA Administration
Cinacalcet 60 mg 03/24/24 18:00 03/27/24 17:26
Cinacalcet 30 Mg Tablet PO 04/21/24 17:59 60 mg
QPM PAPA Administration
Clopidogrel Bisulfate 75 mg 03/25/24 08:00 03/28/24 09:10
Clopidogrel 75 Mg Tablet PO 04/22/24 07:59 75 mg
DAILY PAPA Administration
Cyclobenzaprine HCl 5 mg 03/28/24 10:59
Cyclobenzaprine 10 Mg Tablet PO 04/25/24 10:58
HSPRN PRN
R flank pain
Doxycycline Hyclate 100 mg 03/24/24 20:00 03/28/24 09:09
Doxycycline 100 Mg Capsule PO 100 mg
Q12 PAPA Administration
Duloxetine HCl 60 mg 03/24/24 22:00 03/27/24 20:45
Duloxetine Delayed Release 60 Mg Capsule PO 04/21/24 21:59 60 mg
HS PAAP Administration
Guaifenesin 600 mg 03/24/24 20:00 03/28/24 09:09
Guaifenesin 600 Mg Extended Release Tablet PO 04/21/24 19:59 600 mg
Q12 PAPA Administration
Guaifenesin 100 mg 03/24/24 18:07 03/24/24 21:50
Guaifenesin Oral Solution (200 Mg/10 Ml) Cup PO 04/21/24 18:06 100 mg
Q4HPRN PRN Administration
cough
Heparin Sodium 5,000 units 03/27/24 20:00 03/28/24 09:10
Heparin 5,000 Units/Ml 1 Ml Vial SC 04/24/24 19:59 5,000 units
Q12 PAPA Administration
Sodium Chloride 500 mls @ 100 mls/hr 03/28/24 11:00 03/28/24 11:42
Nss IV 03/28/24 15:59 500 mls
.Q5H PAPA Administration
Isosorbide Mononitrate 30 mg 03/25/24 08:00 03/28/24 09:09
Isosorbide Mononitrate 30 Mg Extended Release Tablet PO 04/22/24 07:59 30 mg
DAILY PAPA Administration
Lidocaine 1 patch 03/27/24 12:30 03/28/24 09:18
Lidocaine 4% Topical Patch TOPICAL 04/24/24 12:29 Not Given
DAILY PAPA
Protocol
Lidocaine/Prilocaine 1 gram 03/27/24 08:00 03/27/24 11:11
Lidocaine 2.5%/Prilocaine 2.5% (Cream) 5 Gram Tube TOPICAL 04/24/24 07:59 1 gram
MoWeFr@0800 PAPA Administration
Midodrine 10 mg 03/27/24 14:00 03/27/24 22:44
Midodrine 5 Mg Tablet PO 04/24/24 13:59 Not Given
MoWeFr@TID PAPA
Oxycodone HCl 5 mg 03/24/24 19:01 03/28/24 06:11
Oxycodone 5 Mg Regular Release Tablet PO 04/07/24 19:00 5 mg
Q8HPRN PRN Administration
SEVERE PAIN
Patch Removal 0 patch 03/27/24 20:00 03/27/24 21:08
Remove Lidocaine Patch REMOVE 04/24/24 19:59 1 patch
DAILY@2000 PAPA Administration
Sodium Chloride 0 flush 03/24/24 15:00
Sodium Chloride 0.9% (Flush) Syringe IV 04/21/24 14:59
PER PROTOCOL PAPA
Review of Systems
-
All Other Systems: Not reviewed unless documented
Physical Exam
-
General: Appears Chronically Ill; Negative Well Developed or Well Nourished
HEENT: Negative Moist Mucous Membranes
Neurology: Non Focal and No Lateralizing Symptoms
Skin: Warm and Dry
Psych: Calm and Intact Judgement/Insight
Labs
Lab Results
WBC 10.8 10^3/uL (4.8-10.8) 03/28/24 09:22
RBC 3.45 10^6/uL (4.20-5.40) L 03/28/24 09:22
Hgb 9.9 g/dL (12.0-16.0) L 03/28/24 09:22
Hct 30.0 % (37.0-47.0) L 03/28/24 09:22
MCV 87.0 fL (81.0-99.0) 03/28/24 09:22
MCH 28.7 pg (27.0-31.0) 03/28/24 09:22
MCHC 33.0 g/dL (33.0-37.0) 03/28/24 09:22
RDW 15.9 % (11.5-14.5) H 03/28/24 09:22
Plt Count 270 10^3/uL (130-400) 03/28/24 09:22
MPV 10.5 fL (7.4-10.4) H 03/28/24 09:22
Abs Immat Gran (auto) 0.1 10^3/uL (0-0.05) H 03/28/24 09:22
Absolute Neuts (auto) 7.6 10^3/uL (1.4-6.5) H 03/28/24 09:22
Absolute Lymphs (auto) 1.9 10^3/uL (1.2-3.4) 03/28/24 09:22
Absolute Monos (auto) 0.9 10^3/uL (0.1-0.6) H 03/28/24 09:22
Absolute Eos (auto) 0.1 10^3/uL (0-0.7) 03/28/24 09:22
Absolute Basos (auto) 0.1 10^3/uL (0-0.2) 03/28/24 09:22
Immature Gran % 0.5 % (0-0.5) 03/28/24 09:22
Neutrophils % 71.0 % (42.2-75.2) 03/28/24 09:22
Lymphocytes % 18.0 % (20.5-51.1) L 03/28/24 09:22
Monocytes % 8.4 % (1.7-9.3) 03/28/24 09:22
Eosinophils % 1.2 % (0-6) 03/28/24 09:22
Basophils % 0.9 % (0-2) 03/28/24 09:22
Creatinine 4.1 mg/dL (0.6-1.0) H* 03/28/24 09:22
Vital Signs
Vital Signs
Temp Pulse Resp BP Pulse Ox
98.1 F 81 20 122/73 95
03/28/24 07:59 03/28/24 07:59 03/28/24 07:59 03/28/24 07:59 03/28/24 07:59
[2024-03-28 16:00] VITALS: BP 108/55
--- NOTE | 2024-03-28 16:43 | W.PN.NEPH.PH ---
Today's Communication / Plan
-
HD tomorrow
Assessment/Plan
-
Assessment
ESRD
Right lower lobe consolidation
Right lower lobe nodule
Hypertension
Coronary artery disease with bypass
Peripheral arterial disease
Tertiary hyperparathyroidism
Plan
CT shows RLL and liver contiguous mass, plan for IR biopsy on Wednesday once plavix wash out
Next dialysis tomorrow
Will use AV fistula. Plan is for removal of dialysis catheter in this week
pt strongly considering hospice either way
due to poor po intolerance may benefit from inpt hospice when decision made
BP soft s/p bolus today, cont midodrine
d/w nursing and pt
d/w oncology
-
-
Date of Service: March 28, 2024
CC / HPI / ROS
-
Chief Complaint:
ESRD
History of Present Illness:
Tolerated dialysis yesterday
Blood pressure stable but soft
On antibiotics for pneumonia
Anemia stable, hemoglobin 9.9
Review of Systems:
no sob, hemoptysis+
No chest pain
Labs
-
Labs:
WBC 10.8 10^3/uL (4.8-10.8) 03/28/24 09:22
RBC 3.45 10^6/uL (4.20-5.40) L 03/28/24 09:22
Hgb 9.9 g/dL (12.0-16.0) L 03/28/24 09:22
Hct 30.0 % (37.0-47.0) L 03/28/24 09:22
Plt Count 270 10^3/uL (130-400) 03/28/24 09:22
Sodium 137 mmol/L (135-145) 03/28/24 09:22
Potassium 3.9 mmol/L (3.5-5.1) 03/28/24 09:22
Chloride 94 mmol/L (98-107) L 03/28/24 09:22
Carbon Dioxide 27 mmol/L (22-30) 03/28/24 09:22
BUN 37 mg/dl (7-17) H 03/28/24 09:22
Creatinine 4.1 mg/dL (0.6-1.0) H* 03/28/24 09:22
eGFR 11.08 03/28/24 09:22
Glucose 90 mg/dl (70-99) 03/28/24 09:22
Calcium 8.9 mg/dl (8.4-10.2) 03/28/24 09:22
Wnv-I-Jknsuvkicfl Pept 5340 pg/ml 03/24/24 12:08
Albumin 4.0 g/dl (3.5-5.0) 03/26/24 09:02
Physical Exam
-
Vital Signs:
Vital Signs
Temp Pulse Resp BP Pulse Ox
98.4 F 77 18 108/55 95
03/28/24 16:00 03/28/24 16:00 03/28/24 16:00 03/28/24 16:00 03/28/24 16:00
Cardiovascular:: Regular rate and rhythm
Respiratory:: Bilateral: CTA (decreased)
Lung Excursion:: Normal
Abdomen:: Nontender and Soft
Extremity Edema:: None: Bilateral:
Shukla Catheter: No
[2024-03-28] MEDS: SENSIPAR 60 MG PO (16:56)
--- NOTE | 2024-03-28 16:56 | CM ---
manager fraud reviewed patient's chart and met with patient to discuss discharge planning. Patient states that physicians are planning on ordering a biopsy and she will need to be off Plavix for biopsy.
Plan; Await updated notes from physician on plan for patient.
--- NOTE | 2024-03-28 18:02 | PTCARENOTE ---
IR consulted for liver biopsy 04/03/24 after Plavix washout. Plavix/ Aspirin held per orders.
[2024-03-28] MEDS: CYMBALTA DELAYED RELEASE 60 MG PO (21:56)
[2024-03-28] MEDS: LIPITOR 40 MG PO (21:56)
[2024-03-28 23:05] VITALS: BP 123/68
[2024-03-29 06:00] VITALS: BMI 18.9
[2024-03-29] MEDS: IMDUR (EXTENDED RELEASE) 30 MG PO (07:39)
[2024-03-29] MEDS: AUGMENTIN 500 MG/125 MG 1 TABLET PO ×2 (07:39→20:05)
[2024-03-29] MEDS: VIBRAMYCIN 100 MG PO ×2 (07:39→20:06)
[2024-03-29] MEDS: MUCINEX 600 MG PO ×2 (07:39→20:05)
[2024-03-29] MEDS: HEPARIN 5000 UNITS SC ×2 (07:40→20:04)
[2024-03-29] MEDS: LIDOCAINE 4% PATCH TOPICAL (07:41)
[2024-03-29] MEDS: FLEXERIL 5 MG PO (07:47)
[2024-03-29 07:49] VITALS: BP 139/73
[2024-03-29] MEDS: ProAmatine PO ×2 (08:00→22:38)
[2024-03-29 09:29] VITALS: BP 139/73; PULSE 92
--- NOTE | 2024-03-29 11:37 | CM ---
Reviewed the chart notes and spoke with the patient at the bedside. Per note, will need a liver biopsy completed after Plavix washout. IR consulted. PT recommending SNF/rehab. Patient agreeable to referral being sent to [facility]
where she has been in the past. CM continues to be available to patient/family and is monitoring medical plan for needs at discharge.
Plan: Discharge to SNF/rehab once bed found and patient medically stable.
[2024-03-29] MEDS: EMLA CREAM 1 GRAM TOPICAL (11:38)
--- NOTE | 2024-03-29 12:05 | W.PN.HOSP.TC ---
Today's Communication/Plan
-
see A/P
Assessment / Plan
Assessment / Plan
HPI: 73 years old female with history of right lower lobe wedge resection with benign pathology, ESRD on HD; presented with weeks of generalized fatigue, productive cough and hemoptysis.
A/P:
# Right lower lobe pneumonia with mild hemoptysis, productive cough with hemoptysis, occasional right-sided back pain
CT chest noted dense airspace consolidation in the basal segments of the right lower lobe most likely presenting pneumonia (but also cannot rule out malignancy). Bronchial to the distal segments are completely filled with secretions.
MRSA screen negative, blood culture negative
Hemoptysis has resolved
broad-spectrum antibiotics Vancomycin/Zosyn/doxycycline -> Augmentin and Doxycycline
Appreciate pulm input
# R flank pain with new L liver mass
CT AP noted right lower lobe lung mass contiguous with right liver mass
Discussed finding with pt, pt would like to proceed with liver biopsy and if mass is malignant, she would like to proceed with hospice
Hold MACHINE ADJUSTER LEADER Plavix and ASA for now (5 days) in anticipation of liver biopsy (would be next week)
Cont trial of lidocaine patch and Flexeril (which helps with pain per pt)
Cont Oxycodone PRN
# CAD/PAD/prior CVA on DAPT MACHINE ADJUSTER LEADER.
# PAD with left SFA angioplasty and stenting 2012
# h/o CABG 2002
# Ischemic cardiomyopathy with LVEF of 45% (decreased from 60 to 65%)
DAPT on hold.
Continue MACHINE ADJUSTER LEADER statin, Imdur
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
# Anemia of chronic disease.
# Polycystic kidney disease with bilateral nephrectomy 2003
Currently not on immunosuppression.
hemodialysis Wednesday.
Continue midodrine
# Failure to thrive with generalized fatigue
PT recc SNF
Other medical conditions:
# Right thoracotomy with right lower lobe wedge resection 2017 with benign pathology.
# Chronic hypotension requiring midodrine.
# History of PMR currently not on steroids.
# History of CVA, status post angioplasty/stent at the left vertebral artery 2019 at [facility].
# Valvular disease with mild MR/moderate AI
# History of longstanding tobacco abuse, currently not smoking
# History of COVID-19 infection
CODE STATUS DNR according to prior records and admissions.
DVT prophylaxis: HSQ with resolution of hemoptysis
Dispo: PT recc SNF
DW RN
Anticipated Discharge: > 48 hours
Subjective/Interval History
-
Date of Service: March 29, 2024
Objective Data
-
Vital Signs:
Vital Signs
Temp Pulse Resp BP Pulse Ox
36.4 C 85 16 139/73 95
03/29/24 07:49 03/29/24 07:49 03/29/24 07:49 03/29/24 07:49 03/29/24 07:49
I&O
03/28/24 03/29/24 03/30/24
06:59 06:59 06:59
Intake Total 480 / 480 1480 / 1480
Balance 480 / 480 1480 / 1480
Review of Systems
-
Musculoskeletal: Reports Other (R flank pain improved with flexeril )
Physical Exam
-
General: Well Developed, Well Nourished, No Apparent Distress, Comfortable, Conversant and Appears Chronically Ill
HEENT: Normocephalic and Atraumatic; Negative Oxygen
Respiratory: Clear to Auscultation and Non Labored Respirations; Negative Accessory Resp Muscle Use
Cardiac: Regular Rhythm and S1/S2; Negative Murmur
GI: Soft, Nontender and Nondistended
Musculoskeletal: No Edema
Skin: Warm
Neuro: Awake, Alert and Oriented
Psych: Calm and Intact Judgement/Insight
Data Reviewed
-
CT Scan: Report Reviewed by me and Discussed with Patient
Labs: Labs Reviewed by me
[2024-03-29] MEDS: ROXICODONE 5 MG PO ×2 (12:22→20:06)
--- NOTE | 2024-03-29 13:16 | W.PN.NEPH.HD ---
Assessment
-
Seen on HD. mild dizziness. VSS, access ok
Progress Note - Hemodialysis
-
Date of Service: March 29, 2024
Duration: 30 minutes and 3 hours
Potassium Bath: 2
Calcium Bath: 2.5
Opti-Dialyzer: 160
Ultrafiltration: Other (even)
Blood Flow: 400
Dialysate Flow: 600
Heparin: no
EPO: 4000 units
[2024-03-29 13:21] LABS: Hematocrit 25.6 % (37.0-47.0); Hemoglobin 8.6 g/dL (12.0-16.0); Mean Corp Hgb Conc. 33.6 g/dL (33.0-37.0); Mean Corpuscular Hgb 29.3 pg (27.0-31.0); Mean Corpuscular Volume 87.1 fL (81.0-99.0); Mean Platelet Volume 11.4 fL (7.4-10.4); Platelet Count 272 10^3/uL (130-400); Red Blood Cell Count 2.94 10^6/uL (4.20-5.40); Red Cell Dist. Width 16.1 % (11.5-14.5)
[2024-03-29 13:40] LABS: Blood Urea Nitrogen 53 mg/dl (7-17); Calcium 8.8 mg/dl (8.4-10.2); Carbon Dioxide 19 mmol/L (22-30); Chloride 97 mmol/L (98-107); Estimated Creatinine Clearance 9 ml/min; Glucose 112 mg/dl (70-99); Magnesium 1.9 mg/dl (1.6-2.3); Potassium 4.3 mmol/L (3.5-5.1); Sodium 139 mmol/L (135-145); eGFR 7.96
[2024-03-29] MEDS: RETACRIT 4000 UNITS IV (14:28)
[2024-03-29 16:30] VITALS: BP 130/61
[2024-03-29] MEDS: SENSIPAR 60 MG PO (17:32)
[2024-03-29] MEDS: ProAmatine 10 MG PO (17:32)
[2024-03-29] MEDS: CYMBALTA DELAYED RELEASE 60 MG PO (23:42)
[2024-03-29] MEDS: LIPITOR 40 MG PO (23:42)
[2024-03-29 23:44] VITALS: BP 153/89
[2024-03-30 05:38] VITALS: BMI 18.8
[2024-03-30 07:00] VITALS: BP 170/80
[2024-03-30] MEDS: HEPARIN 5000 UNITS SC ×2 (08:52→20:53)
[2024-03-30] MEDS: AUGMENTIN 500 MG/125 MG 1 TABLET PO ×2 (08:52→20:53)
[2024-03-30] MEDS: ROXICODONE 5 MG PO ×2 (08:53→20:53)
[2024-03-30] MEDS: LIDOCAINE 4% PATCH TOPICAL (08:53)
[2024-03-30] MEDS: MUCINEX 600 MG PO ×2 (08:53→20:53)
[2024-03-30] MEDS: VIBRAMYCIN 100 MG PO ×2 (08:53→21:05)
[2024-03-30] MEDS: IMDUR (EXTENDED RELEASE) 30 MG PO (08:53)
--- NOTE | 2024-03-30 10:39 | W.PN.HOSP.TC ---
Today's Communication/Plan
-
see A/P
Assessment / Plan
Assessment / Plan
HPI: 73 years old female with history of right lower lobe wedge resection with benign pathology, ESRD on HD; presented with weeks of generalized fatigue, productive cough and hemoptysis.
A/P:
# Right lower lobe pneumonia with mild hemoptysis, productive cough with hemoptysis, occasional right-sided back pain
CT chest noted dense airspace consolidation in the basal segments of the right lower lobe most likely presenting pneumonia (but also cannot rule out malignancy). Bronchial to the distal segments are completely filled with secretions.
MRSA screen negative, blood culture negative
Hemoptysis has resolved
broad-spectrum antibiotics Vancomycin/Zosyn/doxycycline -> Augmentin and Doxycycline
Appreciate pulm input
# R flank pain with new L liver mass
CT AP noted right lower lobe lung mass contiguous with right liver mass
Discussed finding with pt, pt would like to proceed with liver biopsy and if mass is malignant, she would like to proceed with hospice
Hold DIFFUSION FURNACE OPERATOR Plavix and ASA (at least 5 days) in anticipation of liver biopsy (would be early next week)
Cont trial of lidocaine patch and Flexeril (which helps with pain per pt)
Cont Oxycodone PRN
# CAD/PAD/prior CVA on DAPT DIFFUSION FURNACE OPERATOR.
# PAD with left SFA angioplasty and stenting 2012
# h/o CABG 2002
# Ischemic cardiomyopathy with LVEF of 45% (decreased from 60 to 65%)
DAPT on hold.
Continue DIFFUSION FURNACE OPERATOR statin, Imdur
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
# Anemia of chronic disease.
# Polycystic kidney disease with bilateral nephrectomy 2003
Currently not on immunosuppression.
hemodialysis Wednesday.
Continue midodrine
# Failure to thrive with generalized fatigue
PT recc SNF
Other medical conditions:
# Right thoracotomy with right lower lobe wedge resection 2017 with benign pathology.
# Chronic hypotension requiring midodrine.
# History of PMR currently not on steroids.
# History of CVA, status post angioplasty/stent at the left vertebral artery 2019 at [facility].
# Valvular disease with mild MR/moderate AI
# History of longstanding tobacco abuse, currently not smoking
# History of COVID-19 infection
CODE STATUS DNR according to prior records and admissions.
DVT prophylaxis: HSQ with resolution of hemoptysis
Dispo: PT recc SNF
DW RN
Anticipated Discharge: > 48 hours
Subjective/Interval History
-
Date of Service: March 30, 2024
Objective Data
-
Vital Signs:
Vital Signs
Temp Pulse Resp BP Pulse Ox
37.0 C 80 18 170/80 98
03/30/24 07:00 03/30/24 07:00 03/30/24 07:00 03/30/24 07:00 03/30/24 07:00
I&O
03/29/24 03/30/24 03/31/24
06:59 06:59 06:59
Intake Total 1480 / 1480 720 / 720
Balance 1480 / 1480 720 / 720
Review of Systems
-
Musculoskeletal: Reports Other (R flank pain improved with flexeril )
Physical Exam
-
General: Well Developed, Well Nourished, No Apparent Distress, Comfortable, Conversant and Appears Chronically Ill
HEENT: Normocephalic and Atraumatic; Negative Oxygen
Respiratory: Clear to Auscultation and Non Labored Respirations; Negative Accessory Resp Muscle Use
Cardiac: Regular Rhythm and S1/S2; Negative Murmur
GI: Soft, Nontender and Nondistended
Musculoskeletal: No Edema
Skin: Warm
Neuro: Awake, Alert and Oriented
Psych: Calm and Intact Judgement/Insight
Data Reviewed
-
CT Scan: Report Reviewed by me and Discussed with Patient
Labs: Labs Reviewed by me
--- NOTE | 2024-03-30 11:13 | W.PN.NEPH.PH ---
Today's Communication / Plan
-
HD tomorrow
Assessment/Plan
-
Assessment
ESRD
Right lower lobe consolidation
Right lower lobe nodule
Hypertension
Coronary artery disease with bypass
Peripheral arterial disease
Tertiary hyperparathyroidism
Plan
CT shows RLL and liver contiguous mass, plan for IR biopsy on Wednesday once plavix wash out
Next dialysis tomorrow
If AVF without issue tomorrow will remove CVC
pt would do hospice if CA, but would likely continue current treatment if notCA
-
-
Date of Service: March 30, 2024
CC / HPI / ROS
-
Chief Complaint:
ESRD
History of Present Illness:
Tolerated dialysis yesterday
Blood pressure stable but soft
On antibiotics for pneumonia
Anemia stable
to take pills with food in am given nausea
Review of Systems:
no sob, hemoptysis+
No chest pain
Labs
-
Labs:
WBC 12.0 10^3/uL (4.8-10.8) H 03/29/24 13:07
RBC 2.94 10^6/uL (4.20-5.40) L 03/29/24 13:07
Hgb 8.6 g/dL (12.0-16.0) L 03/29/24 13:07
Hct 25.6 % (37.0-47.0) L 03/29/24 13:07
Plt Count 272 10^3/uL (130-400) 03/29/24 13:07
Sodium 139 mmol/L (135-145) 03/29/24 13:07
Potassium 4.3 mmol/L (3.5-5.1) 03/29/24 13:07
Chloride 97 mmol/L (98-107) L 03/29/24 13:07
Carbon Dioxide 19 mmol/L (22-30) L 03/29/24 13:07
BUN 53 mg/dl (7-17) H 03/29/24 13:07
Creatinine 5.4 mg/dL (0.6-1.0) H* 03/29/24 13:07
eGFR 7.96 03/29/24 13:07
Glucose 112 mg/dl (70-99) H 03/29/24 13:07
Calcium 8.8 mg/dl (8.4-10.2) 03/29/24 13:07
Yyb-B-Nfsldjngxzj Pept 5340 pg/ml 03/24/24 12:08
Albumin 4.0 g/dl (3.5-5.0) 03/26/24 09:02
Physical Exam
-
Vital Signs:
Vital Signs
Temp Pulse Resp BP Pulse Ox
98.6 F 80 18 170/80 98
03/30/24 07:00 03/30/24 07:00 03/30/24 07:00 03/30/24 07:00 03/30/24 07:00
Cardiovascular:: Regular rate and rhythm
Respiratory:: Bilateral: Coarse
Lung Excursion:: Normal
Abdomen:: Nontender and Soft
Bowel Sounds:: Normal
Extremity Edema:: None: Bilateral:
[2024-03-30 12:07] VITALS: BP 134/75
[2024-03-30 15:00] VITALS: BP 128/64
--- NOTE | 2024-03-30 15:11 | W.PN.ONC2 ---
Today's Communication / Plan
-
We will stand by, awaiting path.
Cancer related symptoms currently are generalized weakness, not something we can readily palliate or that would improve with treatment.
Fortunately she denies pain.
Impression
Impression
Right lower lobe lung mass, contiguous with right liver mass
ESRD on HD MWF
failed renal transplant, polycystic kidney disease
CAD, CVA, CHF
Plan
Plan
Reviewed CT images, suspicious for malignancy involving RLL and right lobe of liver
Discussed biopsy to evaluate further, to be via bronch. Patient agreeable. Plavix will need to be held x5 days prior. Would hold ASA as well.
Discussed possible biopsy results.
Today, she indicates she would probably want hospice if cancer but wants to proceed with biopsy and hear about any treatments that might be realistic for her, such as targeted therapy.
Subjective/Objective
Chief Complaint
Mass in lung extending to liver
Subjective
Recent events noted, pt with mass in lung extending to liver. IR consulted but would need to pass needle through pleura to get to liver lesion. They have recommended bronch for biopsy.
Pt stating she would probably want hospice if cancer due to her many comorbidities but would like to proceed with biopsy and then hear the diagnosis and treatment options.
Denies pain currently. Sick and tired of being sick and tired.
Denies headache, dizziness, unexplained nausea, visual changes.
Main complaint is progressive weakness.
Vital Signs:
Vital Signs
Temp Pulse Resp BP Pulse Ox
98.6 F 80 18 134/75 95
03/30/24 07:00 03/30/24 07:00 03/30/24 07:00 03/30/24 12:07 03/30/24 08:49
Lab Results:
Laboratory Data
WBC 12.0 10^3/uL (4.8-10.8) H 03/29/24 13:07
Hgb 8.6 g/dL (12.0-16.0) L 03/29/24 13:07
Plt Count 272 10^3/uL (130-400) 03/29/24 13:07
eGFR 7.96 03/29/24 13:07
Physical Exam
HEENT: No Jaundice or Moist Mucous Membranes
Cardiology: Normal Sinus Rhythm, S1 and S2
Pulmonary: Clear
GI: Soft and Normal Bowel Sounds
Extremities: No C/C/E
Neuro: Non Focal
Review of Systems
Review of Systems
ROS negative in detail except as per HPI.
[2024-03-30] MEDS: SENSIPAR 60 MG PO (17:36)
--- NOTE | 2024-03-30 19:09 | W.PN.UPDATE ---
Update Note
Progress Note Update
Planning to perform bronchoscopy with airway survey with RLL BAL and possible endobronchial biopsy. Continue to hold Plavix. Will tentatively schedule her for 04/04/2024.
[2024-03-30] MEDS: CYMBALTA DELAYED RELEASE 60 MG PO (20:53)
[2024-03-30] MEDS: LIPITOR 40 MG PO (20:53)
[2024-03-30] MEDS: FIRST-MOUTHWASH BLM SUSPENSION 5 ML PO (23:06)
[2024-03-30 23:32] VITALS: BP 142/69
--- NOTE | 2024-03-31 03:01 | PTCARENOTE ---
Patient reported that she felt like she was getting thrush; she stated that the last time she had it that it got so bad that she could not eat; white patches noted on patient's tongue per this RNs assessment; Enzo JACKSON notified; PRN medication
(swish and spit) ordered; 1st dose given @ 2305.
[2024-03-31 06:00] VITALS: BMI 18.7
[2024-03-31 07:35] VITALS: BP 137/66
[2024-03-31] MEDS: IMDUR (EXTENDED RELEASE) 30 MG PO (09:18)
[2024-03-31] MEDS: ROXICODONE 5 MG PO ×2 (09:18→17:18)
[2024-03-31] MEDS: MUCINEX 600 MG PO ×2 (09:18→19:55)
[2024-03-31] MEDS: VIBRAMYCIN 100 MG PO (09:18)
[2024-03-31] MEDS: HEPARIN 5000 UNITS SC ×2 (09:19→19:55)
[2024-03-31] MEDS: AUGMENTIN 500 MG/125 MG 1 TABLET PO ×2 (09:19→19:55)
[2024-03-31] MEDS: LIDOCAINE 4% PATCH TOPICAL (09:19)
--- NOTE | 2024-03-31 09:53 | W.PN.HOSP.TC ---
Today's Communication/Plan
-
see A/P
Assessment / Plan
Assessment / Plan
HPI: 73 years old female with history of right lower lobe wedge resection with benign pathology, ESRD on HD; presented with weeks of generalized fatigue, productive cough and hemoptysis.
A/P:
# Right lower lobe pneumonia with mild hemoptysis, productive cough with hemoptysis, occasional right-sided back pain
CT chest noted dense airspace consolidation in the basal segments of the right lower lobe most likely presenting pneumonia (but also cannot rule out malignancy). Bronchial to the distal segments are completely filled with secretions.
MRSA screen negative, blood culture negative
Hemoptysis has resolved
broad-spectrum antibiotics Vancomycin/Zosyn/doxycycline -> Augmentin and Doxycycline 7 days total
Appreciate pulm input
# R flank pain with new L liver mass
CT AP noted right lower lobe lung mass contiguous with right liver mass
Discussed finding with pt, pt would like to proceed with liver biopsy and if mass is malignant, she would like to proceed with hospice
D/w specialists (IR, Onc, Pulm), felt liver biopsy too invasion given it would have to be approached via the pleura,
now plan for bronchoscopy +- endobronchial biopsy, tentatively scheduled for 04/04/2024
Cont to hold M60A2 ARMOR CREWMAN Plavix and ASA prior to bronch
Cont trial of lidocaine patch and Flexeril (which helps with pain per pt)
Cont Oxycodone PRN
# CAD/PAD/prior CVA on DAPT M60A2 ARMOR CREWMAN.
# PAD with left SFA angioplasty and stenting 2012
# h/o CABG 2002
# Ischemic cardiomyopathy with LVEF of 45% (decreased from 60 to 65%)
DAPT on hold.
Continue M60A2 ARMOR CREWMAN statin, Imdur
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
# Anemia of chronic disease.
# Polycystic kidney disease with bilateral nephrectomy 2003
Currently not on immunosuppression.
hemodialysis Wednesday.
Continue midodrine
# Failure to thrive with generalized fatigue
PT recc SNF
Other medical conditions:
# Right thoracotomy with right lower lobe wedge resection 2018 with benign pathology.
# Chronic hypotension requiring midodrine.
# History of PMR currently not on steroids.
# History of CVA, status post angioplasty/stent at the left vertebral artery 2019 at [facility].
# Valvular disease with mild MR/moderate AI
# History of longstanding tobacco abuse, currently not smoking
# History of COVID-19 infection
CODE STATUS DNR according to prior records and admissions.
DVT prophylaxis: HSQ with resolution of hemoptysis
Dispo: PT rec SNF
Anticipated Discharge: > 48 hours
Subjective/Interval History
-
Date of Service: March 31, 2024
Objective Data
-
Labs:
Laboratory Results
03/31/24
07:00
WBC Pending
Hgb Pending
Hct Pending
Plt Count Pending
Sodium Pending
Potassium Pending
Chloride Pending
Carbon Dioxide Pending
BUN Pending
Creatinine Pending
Glucose Pending
Calcium Pending
Vital Signs:
Vital Signs
Temp Pulse Resp BP Pulse Ox
36.4 C 90 18 137/66 95
03/31/24 07:35 03/31/24 07:35 03/31/24 07:35 03/31/24 07:35 03/31/24 07:35
I&O
03/30/24 03/31/24 04/01/24
06:59 06:59 06:59
Intake Total 720 / 720 480 / 480
Balance 720 / 720 480 / 480
Review of Systems
-
Musculoskeletal: Reports Other (R flank pain improved with flexeril )
Physical Exam
-
General: Well Developed, Well Nourished, No Apparent Distress, Comfortable, Conversant and Appears Chronically Ill
HEENT: Normocephalic and Atraumatic; Negative Oxygen
Respiratory: Clear to Auscultation and Non Labored Respirations; Negative Accessory Resp Muscle Use
Cardiac: Regular Rhythm and S1/S2; Negative Murmur
GI: Soft, Nontender and Nondistended
Musculoskeletal: No Edema
Skin: Warm
Neuro: Awake, Alert and Oriented
Psych: Calm and Intact Judgement/Insight
Data Reviewed
-
CT Scan: Report Reviewed by me and Discussed with Patient
Labs: Labs Reviewed by me
--- NOTE | 2024-03-31 09:55 | W.PN.PUL3 ---
Today's Communication / Plan
-
Bronchoscopy scheduled with BAL and possible biopsy this upcoming Wednesday (04/03)
Continue with HD as per nephrology
PT/OT - PT rec'd skilled rehab upon discharge
Continue ABx - would give 7-10 days total then stop
Assessment
-
Patient is a 73-year-old female with previous history of end-stage renal disease on HD MWF, coronary artery disease, history of right thoracotomy with right lower lobe wedge resection 2019, ischemic cardiomyopathy, stroke presenting to ER with
complaints of 3 to 4 weeks of severe generalized fatigue, productive cough with occasional hemoptysis and right sided back pain. She had prior imaging in the past including at outside hospital demonstrating potential right lower lobe disease that
has not been followed up. CT obtained on this admission showing large right lower lobe consolidation likely pneumonia. We are consulted for eval.
Right lower lobe pneumonia, cannot rule out malignancy
Hemoptysis
Generalized weakness
Productive cough
Right sided back pain
Conditions present prior to admission:
End-stage renal disease on HD
She has declined dialysis in the past, discussed hospice, has not yet agreed
Right upper extremity brachial DVT
Recent hospitalization-discharge 11/04/22-sepsis from E. coli bacteremia
CAD status post CABG-subsequent PCI
Hypertension
Hyperlipidemia�
Chronic kidney disease
Polycystic kidney status post renal transplant-2004
Chronic immunosuppression
Chronic hyperparathyroidism
Hypothyroid
Seizure history
AAA
Aortic dissection
History of TIA
PMR
Osteopenia
Peripheral neuropathy
Restless legs
CVA status post angioplasty and stenting of left vertebral artery 2018
Gait disturbance with left hand weakness following right basal ganglia CVA 2018
Cholecystectomy.� Partial hysterectomy.� Kidney transplant.� Lower extremity stent-left SFA.� Multiple Mohs procedures.� Esophageal repair
Plan
From the pulmonary perspective stableovernight.
Remains on room air
remains afebrile
Does not appear toxic..
She usually does not follow-up with pulmonary.
Prior history of mild emphysema on CT, last PFT in 2018 without obstruction
She is a former smoker, 30 pack years, quit only 2 years ago. She denies family history of lung cancer.
Right lower lobe consolidation on CAT scan,, may indicate pneumonia but also cannot rule out malignancy
Currently on Augmentin/Doxy (been on Abx since 03/24)
Considering she has right lower lobe infiltrate with adjacent heterogeneously enhancing rounded density which is suspicious for neoplasia, we will set up for bronchoscopy with BAL +/- brushing vs transbronchial needle biopsy. Bronchoscopy scheduled
for this upcoming Wednesday (04/03/2024)
She has noted in the past that if she were to have malignancy, she may withdraw from dialysis
Mild hemoptysis resolved.
Hemodialysis to continue.
Nephrology following
Prior echo has been reviewed, reduced EF 45%
She has history of ischemic cardiomyopathy
She appears severely deconditioned, failure to thrive
Physical therapy as tolerated.
Hospice has been discussed in the past, she has not been agreeable yet
Patient is DNR
-
Pulmonary service to continue to follow along.
Diagnostic Data
CXR 12/03/22 - IMPRESSION: Limited exam due to patient rotation. New central line catheter. No pneumothorax. Mild vague bilateral pneumonia. Not significantly changed compared to the exam 2 days ago.
CXR 12/01/22- IMPRESSION: Mild to moderate residual bilateral pneumonia, significantly improved.
CT Chest 11/18/22- IMPRESSION: 1. Moderate to severe multifocal pneumonia throughout all lobes.
Chest 09/15/19- 1. 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 No significant change compared to prior study. The remaining visualized portion of the thoracic and upper abdominal aorta
are of normal caliber.
2. Changes of mild centrilobular emphysema. Prior right lower lobe resection.
3. Small left thyroid nodule, measuring 7 mm in diameter, likely benign.
CT Chest 03/24/24- 1. Large amount of dense airspace consolidation in the basal segments of the right lower lobe most likely representing pneumonia. Bronchi to the basal segments are completely filled with secretions.
2. Chronic postoperative changes right lower lobe as seen on previous examinations. Evaluation for recurrent malignancy is not possible on this examination secondary to the superimposed consolidation.
3. Trace right pleural effusion. As above, some indistinct decreased attenuation superior right lobe of the liver which could be related to reactive edematous/inflammatory change. As warranted, could be further evaluated with follow-up
contrast-enhanced CT abdomen and pelvis after resolution of acute process.
4. Chronic approximately 1 cm nodule in the right lower lobe as detailed above, most likely benign given presence with slight interval increase in size dating back to 2013.
5. Advanced aortic atherosclerosis. Ectasia ascending aorta, 4.[address] AP 11/09/22 - IMPRESSION:
1. � Moderate hydronephrosis of right iliac fossa transplant kidney. No obstructing calculi are identified.
2. � Small bowel lateral pleural effusions with adjacent atelectasis, right greater than left.
3. � Innumerable hepatic cysts and probable cysts.
4. � Small volume of ascites. Anasarca.
5. � Diverticulosis without diverticulitis.
6. � Abdominal aortic aneurysm measuring up to 3.4 cm in diameter.
ECHO 11/11/22- Mildly reduced left ventricular systolic function. Left ventricular ejection fraction is 45%.�Hypokinesis of the basal to mid inferolateral and lateral segments.�Mild/moderate mitral regurgitation.
Moderate aortic regurgitation. ��Mild tricuspid regurgitation. Estimated pulmonary artery pressure of 25-30 mmHg assuming a right atrial pressure of 3 mmHg. �Normal PASP. Compared to 09/15/19: LVEF has declined from 60-65% to 45%; there
is�inferolateral and lateral hypokinesis; and AR has progressed from mild/moderate�to moderate.
PFT 10/06/17: FEV1 2.35L 82%, FVC 3.21L 86%, ratio 73. TLC 4.76L 84%, DLCO 45% (normal reza/volumes, moderate diffusion impairment)
Reports and relevant images were personally reviewed.
Total time spent today was 35 minutes for this encounter. Time includes reviewing laboratory test/imaging results, reviewing pertinent medical records, obtaining and reviewing medical history, performing an appropriate exam, ordering medications,
tests and procedures. Time also includes documentation of this encounter, coordinating patient care and communicating with other healthcare professionals. Total time does not include separately billed tests performed on this date of service.
Subjective Data
-
Date of Service:
Date of Service: March 31, 2024
Chief Complaint: Pulmonary Follow Up (Pneumonia)
Subjective:
Seen and evaluated at bedside. She endorses right-sided flank pain. Also nausea with vomiting. Currently on room air breathing comfortably. Denies SOUTH, chest pain, fevers or chills.
Review of Systems
General: Other (Negative unless mentioned above)
Objective Data
Data Reviewed
Vital Signs / I&O / Oxygen:
Vital Signs
Temp Pulse Resp BP Pulse Ox
97.6 F 90 18 137/66 95
03/31/24 07:35 03/31/24 07:35 03/31/24 07:35 03/31/24 07:35 03/31/24 07:35
Intake and Output
03/30/24 03/31/24 04/01/24
06:59 06:59 06:59
Intake Total 720 / 720 480 / 480
Balance 720 / 720 480 / 480
SaO2 95
Physical Exam
General: Respiratory Distress (negative) and Comfortable
HEENT: Normocephalic and Anicteric
Cardiovascular: S1-S2 and Peripheral Edema (negative)
Respiratory: Wheeze (negative), Crackles (negative), Rhonchi (Right base) and Non-Labored Respirations
GI: Soft, Non Distended, Non Tender and Normal Bowel Sounds
Neurology: Awake and Alert
Skin: Warm and Dry
Labs/Micro/Reports
Microbiology
03/30/24 02:44 Sputum Respiratory Culture - Preliminary
Usual Respiratory Irina
03/30/24 02:44 Sputum Gram Stain - Preliminary
03/24/24 16:43 Blood/Venous Blood Culture - Final
No Growth - Final Report
--- NOTE | 2024-03-31 10:21 | PTCARENOTE ---
pt inc of loose mod stool. nurse cleaned and applied moisture barrier cream. pt was started on QID prn thrust swish and spit. spoke to MD. now scheduled QID instead of prn. pt to received HD this afternoon. pt received PRN elizabeth for moderate pain in
R flank. Refused Lidocaine patch. See MAR for proper documentation
[2024-03-31] MEDS: ProAmatine 10 MG PO ×3 (11:38→22:33)
[2024-03-31] MEDS: EMLA CREAM 1 GRAM TOPICAL (11:38)
--- NOTE | 2024-03-31 11:44 | PTCARENOTE ---
Addendum entered by Stephany Solis RN 03/31/24 17:11:
pt stating too tired for bed bath and that she recceived last night this nurse changed patient brief after loose bowel movement. moisture barrier applied and new brief in place. pt stating 7/10 R flank pain. prn given see sep. pt let nurse clean
lower half with purple wipes but did not want anything else. pt with 40ml of pink tinged emesis during HD. new emesis bag given to patient with extra placed at bedside.
Original Note:
10mg midodrine given prior to 1200 HD session. lidocaine cream applied per order to fistula. tegaderm applied on top of site. pt agreeable to bed bath after HD. refused for this AM.
--- NOTE | 2024-03-31 12:12 | CM ---
Reviewed the chart notes. Per notes, plan for bronchoscopy +- endobronchial biopsy, tentatively scheduled for 04/04/2024. CM continues to be available to patient/family and is monitoring medical plan for needs at discharge.
Plan: Discharge to SNF/rehab once medically stable. HD flow sheets faxed to [facility].
[2024-03-31] MEDS: FIRST-MOUTHWASH BLM SUSPENSION 5 ML PO ×3 (13:22→22:13)
[2024-03-31 13:23] LABS: Hemoglobin 8.8 g/dL (12.0-16.0); Mean Corp Hgb Conc. 32.6 g/dL (33.0-37.0); Mean Corpuscular Hgb 28.3 pg (27.0-31.0); Mean Corpuscular Volume 86.8 fL (81.0-99.0); Platelet Count 297 10^3/uL (130-400); Red Blood Cell Count 3.11 10^6/uL (4.20-5.40); Red Cell Dist. Width 16.1 % (11.5-14.5); White Blood Cell Count 14.1 10^3/uL (4.8-10.8)
[2024-03-31 13:42] LABS: Blood Urea Nitrogen 42 mg/dl (7-17); Calcium 9.3 mg/dl (8.4-10.2); Carbon Dioxide 25 mmol/L (22-30); Chloride 98 mmol/L (98-107); Estimated Creatinine Clearance 9 ml/min; Glucose 98 mg/dl (70-99); Potassium 4.3 mmol/L (3.5-5.1); Sodium 140 mmol/L (135-145); eGFR 8.94
--- NOTE | 2024-03-31 13:57 | W.PN.NEPH.HD ---
Assessment
-
Patient seen on HD
sbp stable 144 at current even u/f
patient is currently below EDW
Progress Note - Hemodialysis
-
Date of Service: March 31, 2024
Duration: 30 minutes and 3 hours
Potassium Bath: 2
Calcium Bath: 2.5
Opti-Dialyzer: 160
Ultrafiltration: Other (even)
Blood Flow: 400
Dialysate Flow: 600
Heparin: none
EPO: 4000
[2024-03-31] MEDS: FLEXERIL 5 MG PO (14:41)
[2024-03-31 15:25] VITALS: BP 123/63
[2024-03-31] MEDS: RETACRIT 4000 UNITS IV (16:15)
[2024-03-31] MEDS: SENSIPAR 60 MG PO (17:13)
[2024-03-31 18:36] VITALS: BP 130/63
[2024-03-31] MEDS: CYMBALTA DELAYED RELEASE 60 MG PO (22:12)
[2024-03-31] MEDS: LIPITOR 40 MG PO (22:12)
[2024-03-31 23:21] VITALS: BP 120/76
[2024-04-01] MEDS: FLEXERIL 5 MG PO ×2 (05:57→14:27)
[2024-04-01 06:38] VITALS: BMI 18.3
[2024-04-01 07:25] VITALS: BP 156/71
--- NOTE | 2024-04-01 08:55 | W.PN.NEPH.PH ---
Today's Communication / Plan
-
Dialysis Wednesday
Assessment/Plan
-
Assessment
ESRD
Right lower lobe consolidation
Right lower lobe nodule
Hypertension
Coronary artery disease with bypass
Peripheral arterial disease
Tertiary hyperparathyroidism
Plan
CT shows RLL and liver contiguous mass, plan for IR biopsy on Wednesday once plavix wash out
Next dialysis Wednesday
If AVF without issue Wednesday will remove CVC
pt would do hospice if CA, but would likely continue current treatment if notCA
-
-
Date of Service: April 01, 2024
CC / HPI / ROS
-
Chief Complaint:
ESRD
History of Present Illness:
Tolerated dialysis yesterday
Blood pressure stable but soft
On antibiotics for pneumonia
Anemia stable
to take pills with food in am given nausea
Review of Systems:
no sob, hemoptysis+
Right flank pain
Labs
-
Labs:
WBC 14.1 10^3/uL (4.8-10.8) H 03/31/24 13:09
RBC 3.11 10^6/uL (4.20-5.40) L 03/31/24 13:09
Hgb 8.8 g/dL (12.0-16.0) L 03/31/24 13:09
Hct 27.0 % (37.0-47.0) L 03/31/24 13:09
Plt Count 297 10^3/uL (130-400) 03/31/24 13:09
Sodium 140 mmol/L (135-145) 03/31/24 13:09
Potassium 4.3 mmol/L (3.5-5.1) 03/31/24 13:09
Chloride 98 mmol/L (98-107) 03/31/24 13:09
Carbon Dioxide 25 mmol/L (22-30) 03/31/24 13:09
BUN 42 mg/dl (7-17) H 03/31/24 13:09
Creatinine 4.9 mg/dL (0.6-1.0) H* 03/31/24 13:09
eGFR 8.94 03/31/24 13:09
Glucose 98 mg/dl (70-99) 03/31/24 13:09
Calcium 9.3 mg/dl (8.4-10.2) 03/31/24 13:09
Qwc-C-Azbgawqqfno Pept 5340 pg/ml 03/24/24 12:08
Albumin 4.0 g/dl (3.5-5.0) 03/26/24 09:02
Physical Exam
-
Vital Signs:
Vital Signs
Temp Pulse Resp BP Pulse Ox
98.5 F 85 18 120/76 95
03/31/24 23:21 03/31/24 23:21 03/31/24 23:21 03/31/24 23:21 04/01/24 03:54
Cardiovascular:: Regular rate and rhythm
Respiratory:: Bilateral: Coarse
Lung Excursion:: Normal
Abdomen:: Nontender and Soft
Bowel Sounds:: Normal
Extremity Edema:: None: Bilateral:
--- NOTE | 2024-04-01 09:55 | W.PN.PUL3 ---
Today's Communication / Plan
-
Bronchoscopy scheduled with BAL and possible biopsy this upcoming Wednesday (04/03)
Continue with HD as per nephrology
PT/OT - PT rec'd skilled rehab upon discharge
Continue ABx - would give 7-10 days total then stop
Pain control
Assessment
-
Patient is a 73-year-old female with previous history of end-stage renal disease on HD MWF, coronary artery disease, history of right thoracotomy with right lower lobe wedge resection 2019, ischemic cardiomyopathy, stroke presenting to ER with
complaints of 3 to 4 weeks of severe generalized fatigue, productive cough with occasional hemoptysis and right sided back pain. She had prior imaging in the past including at outside hospital demonstrating potential right lower lobe disease that
has not been followed up. CT obtained on this admission showing large right lower lobe consolidation likely pneumonia. We are consulted for eval.
Right lower lobe pneumonia, cannot rule out malignancy
Hemoptysis - improved
Generalized weakness
Productive cough
Right sided back pain
Conditions present prior to admission:
End-stage renal disease on HD
She has declined dialysis in the past, discussed hospice, has not yet agreed
Right upper extremity brachial DVT
Recent hospitalization-discharge 11/04/22-sepsis from E. coli bacteremia
CAD status post CABG-subsequent PCI
Hypertension
Hyperlipidemia�
Chronic kidney disease
Polycystic kidney status post renal transplant-2004
Chronic immunosuppression
Chronic hyperparathyroidism
Hypothyroid
Seizure history
AAA
Aortic dissection
History of TIA
PMR
Osteopenia
Peripheral neuropathy
Restless legs
CVA status post angioplasty and stenting of left vertebral artery 2018
Gait disturbance with left hand weakness following right basal ganglia CVA 2018
Cholecystectomy.� Partial hysterectomy.� Kidney transplant.� Lower extremity stent-left SFA.� Multiple Mohs procedures.� Esophageal repair
Plan
From the pulmonary perspective, she has been stable overnight.
Remains on room air
remains afebrile
Does not appear toxic..
She usually does not follow-up with pulmonary
She endorses right-sided back/flank pain - continue with pain control as she appears to be inadequately pain-free
Prior history of mild emphysema on CT, last PFT in 2017 without obstruction
She is a former smoker, 30 pack years, quit only 2 years ago. She denies family history of lung cancer.
Right lower lobe consolidation on CAT scan,, may indicate pneumonia but also cannot rule out malignancy
Currently on Augmentin/Doxy (been on Abx since 03/24)
Considering she has right lower lobe infiltrate with adjacent heterogeneously enhancing rounded density which is suspicious for neoplasia, we will set up for bronchoscopy with BAL +/- brushing vs transbronchial needle biopsy. Bronchoscopy scheduled
for this upcoming Wednesday (04/03/2024)
She has noted in the past that if she were to have malignancy, she may withdraw from dialysis
Mild hemoptysis resolved.
Hemodialysis to continue --> next on Wednesday
Nephrology following
Prior echo has been reviewed, reduced EF 45%
She has history of ischemic cardiomyopathy
She appears severely deconditioned, failure to thrive
Physical therapy as tolerated.
Hospice has been discussed in the past, she has not been agreeable yet
Patient is DNR
-
Pulmonary service to continue to follow along.
Diagnostic Data
CXR 12/03/22 - IMPRESSION: Limited exam due to patient rotation. New central line catheter. No pneumothorax. Mild vague bilateral pneumonia. Not significantly changed compared to the exam 2 days ago.
CXR 12/01/22- IMPRESSION: Mild to moderate residual bilateral pneumonia, significantly improved.
CT Chest 11/18/22- IMPRESSION: 1. Moderate to severe multifocal pneumonia throughout all lobes.
Chest 09/15/19- 1. 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 No significant change compared to prior study. The remaining visualized portion of the thoracic and upper abdominal aorta
are of normal caliber.
2. Changes of mild centrilobular emphysema. Prior right lower lobe resection.
3. Small left thyroid nodule, measuring 7 mm in diameter, likely benign.
CT Chest 03/24/24- 1. Large amount of dense airspace consolidation in the basal segments of the right lower lobe most likely representing pneumonia. Bronchi to the basal segments are completely filled with secretions.
2. Chronic postoperative changes right lower lobe as seen on previous examinations. Evaluation for recurrent malignancy is not possible on this examination secondary to the superimposed consolidation.
3. Trace right pleural effusion. As above, some indistinct decreased attenuation superior right lobe of the liver which could be related to reactive edematous/inflammatory change. As warranted, could be further evaluated with follow-up
contrast-enhanced CT abdomen and pelvis after resolution of acute process.
4. Chronic approximately 1 cm nodule in the right lower lobe as detailed above, most likely benign given presence with slight interval increase in size dating back to 2013.
5. Advanced aortic atherosclerosis. Ectasia ascending aorta, 4.[address] AP 11/09/22 - IMPRESSION:
1. � Moderate hydronephrosis of right iliac fossa transplant kidney. No obstructing calculi are identified.
2. � Small bowel lateral pleural effusions with adjacent atelectasis, right greater than left.
3. � Innumerable hepatic cysts and probable cysts.
4. � Small volume of ascites. Anasarca.
5. � Diverticulosis without diverticulitis.
6. � Abdominal aortic aneurysm measuring up to 3.4 cm in diameter.
ECHO 11/11/22- Mildly reduced left ventricular systolic function. Left ventricular ejection fraction is 45%.�Hypokinesis of the basal to mid inferolateral and lateral segments.�Mild/moderate mitral regurgitation.
Moderate aortic regurgitation. ��Mild tricuspid regurgitation. Estimated pulmonary artery pressure of 25-30 mmHg assuming a right atrial pressure of 3 mmHg. �Normal PASP. Compared to 09/15/19: LVEF has declined from 60-65% to 45%; there
is�inferolateral and lateral hypokinesis; and AR has progressed from mild/moderate�to moderate.
PFT 10/06/17: FEV1 2.35L 82%, FVC 3.21L 86%, ratio 73. TLC 4.76L 84%, DLCO 45% (normal reza/volumes, moderate diffusion impairment)
Reports and relevant images were personally reviewed.
Total time spent today was 35 minutes for this encounter. Time includes reviewing laboratory test/imaging results, reviewing pertinent medical records, obtaining and reviewing medical history, performing an appropriate exam, ordering medications,
tests and procedures. Time also includes documentation of this encounter, coordinating patient care and communicating with other healthcare professionals. Total time does not include separately billed tests performed on this date of service.
Subjective Data
-
Date of Service:
Date of Service: April 01, 2024
Chief Complaint: Pulmonary Follow Up (Pneumonia)
Subjective:
Patient seen and evaluated today at bedside. She is on room air breathing comfortably. Endorses right-sided flank/back pain. No shortness of breath or chest pain.
Review of Systems
General: Other (Negative unless mentioned above)
Objective Data
Data Reviewed
Vital Signs / I&O / Oxygen:
Vital Signs
Temp Pulse Resp BP Pulse Ox
98.7 F 86 16 156/71 96
04/01/24 07:25 04/01/24 07:25 04/01/24 07:25 04/01/24 07:25 04/01/24 07:25
Intake and Output
03/31/24 04/01/24 04/02/24
06:59 06:59 06:59
Intake Total 480 / 480 1180 / 1180
Balance 480 / 480 1180 / 1180
SaO2 96
Physical Exam
General: Respiratory Distress (negative) and Comfortable
HEENT: Normocephalic and Anicteric
Cardiovascular: S1-S2 and Peripheral Edema (negative)
Respiratory: Wheeze (negative), Crackles (Right base), Rhonchi (Right base) and Non-Labored Respirations
GI: Soft, Non Distended, Non Tender and Normal Bowel Sounds
Neurology: Awake, Alert and Tremors (negative)
Skin: Warm and Dry
Labs/Micro/Reports
Lab Data
03/31/24 13:09
03/31/24 13:09
Microbiology
03/30/24 02:44 Sputum Respiratory Culture - Final
Usual Respiratory Irina
03/30/24 02:44 Sputum Gram Stain - Final
03/24/24 16:43 Blood/Venous Blood Culture - Final
No Growth - Final Report
[2024-04-01] MEDS: IMDUR (EXTENDED RELEASE) 30 MG PO (10:03)
[2024-04-01] MEDS: AUGMENTIN 500 MG/125 MG 1 TABLET PO ×2 (10:03→19:43)
[2024-04-01] MEDS: FIRST-MOUTHWASH BLM SUSPENSION 5 ML PO ×4 (10:03→21:07)
[2024-04-01] MEDS: HEPARIN SC (10:06)
[2024-04-01] MEDS: ROXICODONE 5 MG PO ×2 (10:06→17:44)
[2024-04-01] MEDS: MUCINEX 600 MG PO ×2 (10:06→19:43)
[2024-04-01] MEDS: LIDOCAINE 4% PATCH TOPICAL (10:07)
--- NOTE | 2024-04-01 10:21 | W.PN.HOSP.TC ---
Today's Communication/Plan
-
see A/P
Assessment / Plan
Assessment / Plan
HPI: 73 years old female with history of right lower lobe wedge resection with benign pathology, ESRD on HD; presented with weeks of generalized fatigue, productive cough and hemoptysis.
A/P:
# Right lower lobe pneumonia with mild hemoptysis, productive cough with hemoptysis, occasional right-sided back pain
CT chest noted dense airspace consolidation in the basal segments of the right lower lobe most likely presenting pneumonia (but also cannot rule out malignancy). Bronchial to the distal segments are completely filled with secretions.
MRSA screen negative, blood culture negative
Hemoptysis has resolved
broad-spectrum antibiotics Vancomycin/Zosyn/doxycycline -> Augmentin and Doxycycline 7 days total
Appreciate pulm input
# R flank pain with new L liver mass
CT AP noted right lower lobe lung mass contiguous with right liver mass
Discussed finding with pt, pt would like to proceed with liver biopsy and if mass is malignant, she would like to proceed with hospice
D/w specialists (IR, Onc, Pulm), felt liver biopsy too invasion given it would have to be approached via the pleura,
now plan for bronchoscopy +- endobronchial biopsy, tentatively scheduled for 04/04/2024
Cont to hold ROLLOFF DRIVER Plavix and ASA prior to bronch
Cont trial of lidocaine patch and Flexeril (which helps with pain per pt)
Cont Oxycodone PRN
# CAD/PAD/prior CVA on DAPT ROLLOFF DRIVER.
# PAD with left SFA angioplasty and stenting 2012
# h/o CABG 2002
# Ischemic cardiomyopathy with LVEF of 45% (decreased from 60 to 65%)
DAPT on hold.
Continue ROLLOFF DRIVER statin, Imdur
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
# Anemia of chronic disease.
# Polycystic kidney disease with bilateral nephrectomy 2003
Currently not on immunosuppression.
hemodialysis Wednesday.
Continue midodrine
# Failure to thrive with generalized fatigue
PT recc SNF
Other medical conditions:
# Right thoracotomy with right lower lobe wedge resection 2018 with benign pathology.
# Chronic hypotension requiring midodrine.
# History of PMR currently not on steroids.
# History of CVA, status post angioplasty/stent at the left vertebral artery 2019 at [facility].
# Valvular disease with mild MR/moderate AI
# History of longstanding tobacco abuse, currently not smoking
# History of COVID-19 infection
CODE STATUS DNR according to prior records and admissions.
DVT prophylaxis: HSQ with resolution of hemoptysis
Dispo: PT rec SNF
Anticipated Discharge: > 48 hours
Subjective/Interval History
-
Date of Service: April 01, 2024
Objective Data
-
Vital Signs:
Vital Signs
Temp Pulse Resp BP Pulse Ox
37.1 C 86 16 156/71 96
04/01/24 07:25 04/01/24 07:25 04/01/24 07:25 04/01/24 07:25 04/01/24 07:25
I&O
03/31/24 04/01/24 04/02/24
06:59 06:59 06:59
Intake Total 480 / 480 1180 / 1180
Balance 480 / 480 1180 / 1180
Review of Systems
-
Musculoskeletal: Reports Other (R flank pain improved with flexeril )
Physical Exam
-
General: Well Developed, No Apparent Distress, Comfortable, Conversant and Appears Chronically Ill
HEENT: Normocephalic and Atraumatic; Negative Oxygen
Respiratory: Clear to Auscultation and Non Labored Respirations; Negative Accessory Resp Muscle Use
Cardiac: Regular Rhythm and S1/S2; Negative Murmur
GI: Soft, Nontender and Nondistended
Musculoskeletal: No Edema
Skin: Warm
Neuro: Awake, Alert and Oriented
Psych: Calm and Intact Judgement/Insight
Data Reviewed
-
CT Scan: Report Reviewed by me and Discussed with Patient
Labs: Labs Reviewed by me
--- NOTE | 2024-04-01 11:01 | PTCARENOTE ---
PT AOX3, FLAT, DID NOT WANT TO GET WASHED UP OR OOB TO CHAIR THIS AM, C/O PAIN R FLANK THIS AM SEE MAR. POOR APPETITE, IN BED RESTING, CALL MUÑOZ IN REACH
--- NOTE | 2024-04-01 13:02 | PTCARENOTE ---
encouraged pt to get washed and oob to chair multiple times this shift and pt refused, wants to stay in bed. resting, call rosen in reach
[2024-04-01 15:15] VITALS: BP 114/63
[2024-04-01 16:06] VITALS: BP 126/52; BP 130/88; BP 98/71; PULSE 88; O2SAT 98
[2024-04-01] MEDS: SENSIPAR 60 MG PO (17:45)
--- NOTE | 2024-04-01 19:20 | PTCARENOTE ---
Telephone order received to increase patients oxycodone frequency to Q4 PRN as patient is asking for something and it is not due to it yet.
--- NOTE | 2024-04-01 19:25 | PTCARENOTE ---
At [facility] [address] order [address] from Dr Carrasquillo to increase patients oxycodone frequency to Q4 PRN as patient is asking for something for pain and it is not due yet.
[2024-04-01] MEDS: HEPARIN 5000 UNITS SC (19:43)
[2024-04-01] MEDS: LIPITOR 40 MG PO (21:07)
[2024-04-01] MEDS: CYMBALTA DELAYED RELEASE 60 MG PO (21:07)
[2024-04-01 23:14] VITALS: BP 127/73
[2024-04-02] MEDS: ROXICODONE 5 MG PO ×3 (03:40→19:58)
[2024-04-02 06:00] VITALS: BMI 18.3
[2024-04-02 07:20] VITALS: BP 154/81
[2024-04-02] MEDS: MUCINEX 600 MG PO ×2 (08:55→19:58)
[2024-04-02] MEDS: LIDOCAINE 4% PATCH 1 PATCH TOPICAL (08:55)
[2024-04-02] MEDS: AUGMENTIN 500 MG/125 MG 1 TABLET PO (08:55)
[2024-04-02] MEDS: FIRST-MOUTHWASH BLM SUSPENSION 5 ML PO ×4 (08:55→22:07)
[2024-04-02] MEDS: IMDUR (EXTENDED RELEASE) 30 MG PO (08:55)
[2024-04-02] MEDS: HEPARIN 5000 UNITS SC ×2 (08:56→19:59)
[2024-04-02 09:45] LABS: % Basophils 0.8 % (0-2); % Eosinophils 1.5 % (0-6); % Immature Granulocytes 0.6 % (0-0.5); % Lymphocytes 18.3 % (20.5-51.1); % Monocytes 7.6 % (1.7-9.3); % Neutrophils 71.2 % (42.2-75.2); Absolute Basophils 0.1 10^3/uL (0-0.2); Absolute Eosinophils 0.2 10^3/uL (0-0.7); Absolute Immature Granulocytes 0.1 10^3/uL (0-0.05); Absolute Lymphocytes 2.3 10^3/uL (1.2-3.4); Absolute Neutrophils 9.1 10^3/uL (1.4-6.5); Hematocrit 29.9 % (37.0-47.0); Hemoglobin 9.7 g/dL (12.0-16.0); Mean Corp Hgb Conc. 32.4 g/dL (33.0-37.0); Mean Corpuscular Hgb 28.2 pg (27.0-31.0); Mean Corpuscular Volume 86.9 fL (81.0-99.0); Mean Platelet Volume 10.7 fL (7.4-10.4); Nucleated Red Blood Cells % 0 %; Platelet Count 292 10^3/uL (130-400); Red Blood Cell Count 3.44 10^6/uL (4.20-5.40); Red Cell Dist. Width 16.6 % (11.5-14.5); White Blood Cell Count 12.7 10^3/uL (4.8-10.8)
[2024-04-02 10:15] LABS: Blood Urea Nitrogen 46 mg/dl (7-17); Calcium 9.5 mg/dl (8.4-10.2); Carbon Dioxide 27 mmol/L (22-30); Chloride 94 mmol/L (98-107); Estimated Creatinine Clearance 9 ml/min; Glucose 83 mg/dl (70-99); Potassium 4.6 mmol/L (3.5-5.1); Sodium 141 mmol/L (135-145); eGFR 8.94
--- NOTE | 2024-04-02 10:35 | W.PN.HOSP.TC ---
Today's Communication/Plan
-
see A/P
Assessment / Plan
Assessment / Plan
HPI: 73 years old female with history of right lower lobe wedge resection with benign pathology, ESRD on HD; presented with weeks of generalized fatigue, productive cough and hemoptysis.
A/P:
# Right lower lobe pneumonia with mild hemoptysis, productive cough with hemoptysis, occasional right-sided back pain
CT chest noted dense airspace consolidation in the basal segments of the right lower lobe most likely presenting pneumonia (but also cannot rule out malignancy). Bronchial to the distal segments are completely filled with secretions.
MRSA screen negative, blood culture negative
Hemoptysis has resolved
broad-spectrum antibiotics Vancomycin/Zosyn/doxycycline -> s/p Augmentin and Doxycycline 7 days total
Appreciate pulm input
# R flank pain with new L liver mass
CT AP noted right lower lobe lung mass contiguous with right liver mass
Discussed finding with pt, pt would like to proceed with liver biopsy and if mass is malignant, she would like to proceed with hospice
D/w specialists (IR, Onc, Pulm), felt liver biopsy too invasion given it would be approached via the pleura,
now plan for bronchoscopy +- endobronchial biopsy, tentatively scheduled for 04/04/2024
Cont to hold BAR HOST Plavix and ASA prior to bronch
Cont trial of lidocaine patch and Flexeril (which helps with pain per pt)
Cont Oxycodone PRN
# CAD/PAD/prior CVA on DAPT BAR HOST.
# PAD with left SFA angioplasty and stenting 2012
# h/o CABG 2002
# Ischemic cardiomyopathy with LVEF of 45% (decreased from 60 to 65%)
DAPT on hold.
Continue BAR HOST statin, Imdur
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
# Anemia of chronic disease.
# Polycystic kidney disease with bilateral nephrectomy 2003
Currently not on immunosuppression.
hemodialysis Wednesday.
Continue midodrine
# Failure to thrive with generalized fatigue
PT recc SNF
Other medical conditions:
# Right thoracotomy with right lower lobe wedge resection 2018 with benign pathology.
# Chronic hypotension requiring midodrine.
# History of PMR currently not on steroids.
# History of CVA, status post angioplasty/stent at the left vertebral artery 2019 at [facility].
# Valvular disease with mild MR/moderate AI
# History of longstanding tobacco abuse, currently not smoking
# History of COVID-19 infection
CODE STATUS DNR according to prior records and admissions.
DVT prophylaxis: HSQ with resolution of hemoptysis
Dispo: PT rec SNF
Anticipated Discharge: > 48 hours
Subjective/Interval History
-
Date of Service: April 02, 2024
Objective Data
-
Labs:
Laboratory Results
04/02/24
09:05
WBC 12.7 H
Hgb 9.7 L
Hct 29.9 L
Plt Count 292
Sodium 141
Potassium 4.6
Chloride 94 L
Carbon Dioxide 27
BUN 46 H
Creatinine 4.9 H*
Glucose 83
Calcium 9.5
Vital Signs:
Vital Signs
Temp Pulse Resp BP Pulse Ox
36.4 C 83 16 154/81 93
04/02/24 07:20 04/02/24 07:20 04/02/24 07:20 04/02/24 07:20 04/02/24 07:20
I&O
04/01/24 04/02/24 04/03/24
06:59 06:59 06:59
Intake Total 1180 / 1180 480 / 480
Balance 1180 / 1180 480 / 480
Review of Systems
-
Musculoskeletal: Reports Other (R flank pain improved with flexeril )
Physical Exam
-
General: Well Developed, No Apparent Distress, Comfortable, Conversant and Appears Chronically Ill
HEENT: Normocephalic and Atraumatic; Negative Oxygen
Respiratory: Clear to Auscultation and Non Labored Respirations; Negative Accessory Resp Muscle Use
Cardiac: Regular Rhythm and S1/S2; Negative Murmur
GI: Soft, Nontender and Nondistended
Musculoskeletal: No Edema
Skin: Warm
Neuro: Awake, Alert and Oriented
Psych: Calm and Intact Judgement/Insight
Data Reviewed
-
CT Scan: Report Reviewed by me and Discussed with Patient
Labs: Labs Reviewed by me
--- NOTE | 2024-04-02 11:02 | W.PN.PUL3 ---
Today's Communication / Plan
-
Bronchoscopy scheduled with BAL and possible biopsy tomorrow (04/03)
Continue with HD as per nephrology
PT/OT - PT rec'd skilled rehab upon discharge
Continue ABx - would give 7-10 days total then stop
Pain control
Assessment
-
Patient is a 73-year-old female with previous history of end-stage renal disease on HD M[facility], coronary artery disease, history of right thoracotomy with right lower lobe wedge resection 2018, ischemic cardiomyopathy, stroke presenting to ER with
complaints of 3 to 4 weeks of severe generalized fatigue, productive cough with occasional hemoptysis and right sided back pain. She had prior imaging in the past including at outside hospital demonstrating potential right lower lobe disease that
has not been followed up. CT obtained on this admission showing large right lower lobe consolidation likely pneumonia. We are consulted for eval.
Impression:
Right lower lobe pneumonia, cannot rule out malignancy
Hemoptysis - improved
Generalized weakness
Productive cough
Right sided back pain
Conditions present prior to admission:
End-stage renal disease on HD
She has declined dialysis in the past, discussed hospice, has not yet agreed
Right upper extremity brachial DVT
Recent hospitalization-discharge 11/04/22-sepsis from E. coli bacteremia
CAD status post CABG-subsequent PCI
Hypertension
Hyperlipidemia�
Chronic kidney disease
Polycystic kidney status post renal transplant-2004
Chronic immunosuppression
Chronic hyperparathyroidism
Hypothyroid
Seizure history
AAA
Aortic dissection
History of TIA
PMR
Osteopenia
Peripheral neuropathy
Restless legs
CVA status post angioplasty and stenting of left vertebral artery 2018
Gait disturbance with left hand weakness following right basal ganglia CVA 2018
Cholecystectomy.� Partial hysterectomy.� Kidney transplant.� Lower extremity stent-left SFA.� Multiple Mohs procedures.� Esophageal repair
Plan
From the pulmonary perspective, she has been stable overnight.
Remains on room air
remains afebrile
Does not appear toxic..
She usually does not follow-up with pulmonary
She endorses right-sided back/flank pain - continue with pain control as she appears to be inadequately pain-free
Prior history of mild emphysema on CT, last PFT in 2017 without obstruction
She is a former smoker, 30 pack years, quit only 2 years ago. She denies family history of lung cancer.
Right lower lobe consolidation on CAT scan,, may indicate pneumonia but also cannot rule out malignancy
Currently on Augmentin/Doxy (been on Abx since 03/24)
Considering she has right lower lobe infiltrate with adjacent heterogeneously enhancing rounded density which is suspicious for neoplasia, we will set up for bronchoscopy with BAL +/- brushing vs transbronchial needle biopsy. Bronchoscopy scheduled
for tomorrow (04/03/2024) --> NPO p MN
She has noted in the past that if she were to have malignancy, she may withdraw from dialysis
Mild hemoptysis resolved.
Hemodialysis to continue --> next session planned for tomorrow
Nephrology following
Prior echo has been reviewed, reduced EF 45%
She has history of ischemic cardiomyopathy
She appears severely deconditioned, failure to thrive
Physical therapy as tolerated.
Hospice has been discussed in the past, she has not been agreeable yet
Patient is DNR
-
Pulmonary service to continue to follow along.
Diagnostic Data
CXR 12/03/22 - IMPRESSION: Limited exam due to patient rotation. New central line catheter. No pneumothorax. Mild vague bilateral pneumonia. Not significantly changed compared to the exam 2 days ago.
CXR 12/01/22- IMPRESSION: Mild to moderate residual bilateral pneumonia, significantly improved.
CT Chest 11/18/22- IMPRESSION: 1. Moderate to severe multifocal pneumonia throughout all lobes.
Chest 09/15/19- 1. 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 No significant change compared to prior study. The remaining visualized portion of the thoracic and upper abdominal aorta
are of normal caliber.
2. Changes of mild centrilobular emphysema. Prior right lower lobe resection.
3. Small left thyroid nodule, measuring 7 mm in diameter, likely benign.
CT Chest 03/24/24- 1. Large amount of dense airspace consolidation in the basal segments of the right lower lobe most likely representing pneumonia. Bronchi to the basal segments are completely filled with secretions.
2. Chronic postoperative changes right lower lobe as seen on previous examinations. Evaluation for recurrent malignancy is not possible on this examination secondary to the superimposed consolidation.
3. Trace right pleural effusion. As above, some indistinct decreased attenuation superior right lobe of the liver which could be related to reactive edematous/inflammatory change. As warranted, could be further evaluated with follow-up
contrast-enhanced CT abdomen and pelvis after resolution of acute process.
4. Chronic approximately 1 cm nodule in the right lower lobe as detailed above, most likely benign given presence with slight interval increase in size dating back to 2013.
5. Advanced aortic atherosclerosis. Ectasia ascending aorta, 4.[address] AP 11/09/22 - IMPRESSION:
1. � Moderate hydronephrosis of right iliac fossa transplant kidney. No obstructing calculi are identified.
2. � Small bowel lateral pleural effusions with adjacent atelectasis, right greater than left.
3. � Innumerable hepatic cysts and probable cysts.
4. � Small volume of ascites. Anasarca.
5. � Diverticulosis without diverticulitis.
6. � Abdominal aortic aneurysm measuring up to 3.4 cm in diameter.
ECHO 11/11/22- Mildly reduced left ventricular systolic function. Left ventricular ejection fraction is 45%.�Hypokinesis of the basal to mid inferolateral and lateral segments.�Mild/moderate mitral regurgitation.
Moderate aortic regurgitation. ��Mild tricuspid regurgitation. Estimated pulmonary artery pressure of 25-30 mmHg assuming a right atrial pressure of 3 mmHg. �Normal PASP. Compared to 09/15/19: LVEF has declined from 60-65% to 45%; there
is�inferolateral and lateral hypokinesis; and AR has progressed from mild/moderate�to moderate.
PFT 10/06/17: FEV1 2.35L 82%, FVC 3.21L 86%, ratio 73. TLC 4.76L 84%, DLCO 45% (normal reza/volumes, moderate diffusion impairment)
Reports and relevant images were personally reviewed.
Total time spent today was 35 minutes for this encounter. Time includes reviewing laboratory test/imaging results, reviewing pertinent medical records, obtaining and reviewing medical history, performing an appropriate exam, ordering medications,
tests and procedures. Time also includes documentation of this encounter, coordinating patient care and communicating with other healthcare professionals. Total time does not include separately billed tests performed on this date of service.
Subjective Data
-
Date of Service:
Date of Service: April 02, 2024
Chief Complaint: Pulmonary Follow Up (Pneumonia)
Subjective:
Pt. seen and evaluated this AM. She denies SOB. She is on room air breathing comfortably. No acute events reported from overnight. She denies chest pain, headache, abdominal pain, fevers or chills.
Review of Systems
General: Other (negative unless mentioned above)
Objective Data
Data Reviewed
Vital Signs / I&O / Oxygen:
Vital Signs
Temp Pulse Resp BP Pulse Ox
98.7 F 75 16 120/54 94
04/02/24 15:05 04/02/24 15:05 04/02/24 15:05 04/02/24 15:05 04/02/24 15:05
Intake and Output
04/01/24 04/02/24 04/03/24
06:59 06:59 06:59
Intake Total 1180 / 1180 480 / 480 540 / 540
Balance 1180 / 1180 480 / 480 540 / 540
SaO2 94
Physical Exam
General: Respiratory Distress (negative) and Comfortable
HEENT: Normocephalic and Anicteric
Cardiovascular: S1-S2 and Peripheral Edema (negative)
Respiratory: Wheeze (negative), Crackles (Right base), Rhonchi (Right base) and Non-Labored Respirations
GI: Soft, Non Distended, Non Tender and Normal Bowel Sounds
Neurology: Awake, Alert and Tremors (negative)
Skin: Warm and Dry
Labs/Micro/Reports
Lab Data
04/02/24 09:05
04/02/24 09:05
Microbiology
03/30/24 02:44 Sputum Respiratory Culture - Final
Usual Respiratory Irina
03/30/24 02:44 Sputum Gram Stain - Final
--- NOTE | 2024-04-02 11:41 | W.PN.NEPH.PH ---
Today's Communication / Plan
-
Dialysis tomorrow
Assessment/Plan
-
Assessment
ESRD
Right lower lobe consolidation
Right lower lobe nodule
Hypertension
Coronary artery disease with bypass
Peripheral arterial disease
Tertiary hyperparathyroidism
Plan
CT shows RLL and liver contiguous mass, plan for endobronchial biopsy on 04/04/2024
Next dialysis Wednesday
If AVF without issue Wednesday will remove CVC
pt would do hospice if CA, but would likely continue current treatment if notCA
-
-
Date of Service: April 02, 2024
CC / HPI / ROS
-
Chief Complaint:
ESRD
History of Present Illness:
ESRD on Wednesday
Hemodynamically more stable, requires midodrine with dialysis
On antibiotics for pneumonia
Anemia stable
Review of Systems:
no sob, hemoptysis+
Right flank pain
Lethargic
Labs
-
Labs:
WBC 12.7 10^3/uL (4.8-10.8) H 04/02/24 09:05
RBC 3.44 10^6/uL (4.20-5.40) L 04/02/24 09:05
Hgb 9.7 g/dL (12.0-16.0) L 04/02/24 09:05
Hct 29.9 % (37.0-47.0) L 04/02/24 09:05
Plt Count 292 10^3/uL (130-400) 04/02/24 09:05
Sodium 141 mmol/L (135-145) 04/02/24 09:05
Potassium 4.6 mmol/L (3.5-5.1) 04/02/24 09:05
Chloride 94 mmol/L (98-107) L 04/02/24 09:05
Carbon Dioxide 27 mmol/L (22-30) 04/02/24 09:05
BUN 46 mg/dl (7-17) H 04/02/24 09:05
Creatinine 4.9 mg/dL (0.6-1.0) H* 04/02/24 09:05
eGFR 8.94 04/02/24 09:05
Glucose 83 mg/dl (70-99) 04/02/24 09:05
Calcium 9.5 mg/dl (8.4-10.2) 04/02/24 09:05
Bqf-U-Hlbmkhrsqyu Pept 5340 pg/ml 03/24/24 12:08
Albumin 4.0 g/dl (3.5-5.0) 03/26/24 09:02
Physical Exam
-
Vital Signs:
Vital Signs
Temp Pulse Resp BP Pulse Ox
97.6 F 83 16 154/81 93
04/02/24 07:20 04/02/24 07:20 04/02/24 07:20 04/02/24 07:20 04/02/24 07:20
Cardiovascular:: Regular rate and rhythm
Respiratory:: Bilateral: Coarse
Lung Excursion:: Normal
Abdomen:: Nontender and Soft
Bowel Sounds:: Normal
Extremity Edema:: None: Bilateral:
Shukla Catheter: No
[2024-04-02 15:05] VITALS: BP 120/54
[2024-04-02] MEDS: SENSIPAR 60 MG PO (18:06)
[2024-04-02] MEDS: CYMBALTA DELAYED RELEASE 60 MG PO (22:07)
[2024-04-02] MEDS: LIPITOR 40 MG PO (22:07)
[2024-04-02 23:17] VITALS: BP 126/64
[2024-04-03] VITALS (8 sets, daily range): BP systolic 108–145; BP diastolic 53–82; BMI 18.3
[2024-04-03] MEDS: EMLA CREAM 1 GRAM TOPICAL (07:24)
[2024-04-03] MEDS: HEPARIN 5000 UNITS SC ×2 (07:27→22:00)
[2024-04-03] MEDS: IMDUR (EXTENDED RELEASE) 30 MG PO (07:27)
[2024-04-03] MEDS: FIRST-MOUTHWASH BLM SUSPENSION 5 ML PO ×3 (07:27→22:01)
[2024-04-03] MEDS: MUCINEX 600 MG PO ×2 (07:27→22:00)
[2024-04-03] MEDS: LIDOCAINE 4% PATCH TOPICAL (07:28)
[2024-04-03] MEDS: ProAmatine 10 MG PO ×3 (07:29→22:04)
[2024-04-03] MEDS: ROXICODONE 5 MG PO (07:48)
--- NOTE | 2024-04-03 08:05 | W.PN.HOSP.TC ---
Today's Communication/Plan
-
Bronchoscopy with blood in the right lower lobe
Pulmonary recommends holding ASA and Plavix, but given patient's cardiac history, have consulted cardiology
Repeat CXR
Assessment / Plan
Assessment / Plan
Physical Exam
General: Not in Acute Distress
HEENT: Normocephalic and Atraumatic
Respiratory: Clear to Auscultation Bilaterally
Cardiac: Regular Rhythm and S1/S2
GI: Soft, Nontender and Nondistended. Positive bowel sounds.
Skin: Warm. Dry.
Neuro: Awake, Alert and Oriented
Psych: Calm and Intact Judgement/Insight
Assessment/Plan
HPI: 73 years old female with history of right lower lobe wedge resection with benign pathology, ESRD on HD; presented with weeks of generalized fatigue, productive cough and hemoptysis.
# Right lower lobe pneumonia with mild hemoptysis, productive cough with hemoptysis, occasional right-sided back pain
Hemoptysis resolved
CT chest noted dense airspace consolidation in the basal segments of the right lower lobe most likely presenting pneumonia (but also cannot rule out malignancy). Bronchial to the distal segments are completely filled with secretions.
MRSA screen negative, blood culture negative
Hemoptysis has resolved
broad-spectrum antibiotics Vancomycin/Zosyn/doxycycline -> s/p PO antibiotics
Appreciate pulm input
# R flank pain with new L liver mass
# R lumbar pain
# Right Lower Lobe Atelectasis
# Right lower lobe lung mass, contiguous with right liver mass
# Right Lower Lobe and Right Medial Lobe blood from bronchoscopy - valreie blood throughout the right lower lobe airway, bloody plugs throughout the right middle lobe, right mainstem
CT AP noted right lower lobe lung mass contiguous with right liver mass contiguous from previous right lower lobe lung mass
Discussed finding with pt, pt would like to proceed with liver biopsy and if mass is malignant, she would like to proceed with hospice
Dr. Carrasquillo discussed with specialists (IR, Onc, Pulm), felt liver biopsy too invasion given it would be approached via the pleura
now plan for bronchoscopy +- endobronchial biopsy, tentatively scheduled for 04/04/2024
Continue to hold [employer] Plavix and ASA as per pulmonary given bleeding during bronchoscopy -- consulted cardiology for guidance on this (patient sees Dr. Yost outpatient)
Cont trial of lidocaine patch and Flexeril (which helps with pain per pt)
Cont Oxycodone PRN
Await cultures, pathology, biopsy, brushings, cytology
Based on results, consider repeat imaging in the next 2 to 6 weeks
# CAD/PAD/prior CVA on DAPT [employer]INE [employer].
# PAD with left SFA angioplasty and stenting 2012
# h/o CABG 2002
# Ischemic cardiomyopathy with LVEF of 45% (decreased from 60 to 65%)
DAPT on hold -- as per pulmonary given bleeding during bronchoscopy -- consulted cardiology for guidance on this (patient sees Dr. Yost outpatient)
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
# Anemia of chronic disease.
# Polycystic kidney disease with bilateral nephrectomy 2003
Currently not on immunosuppression.
hemodialysis Wednesday.
Continue midodrine
# Failure to thrive with generalized fatigue
PT recc SNF
Other medical conditions:
# Right thoracotomy with right lower lobe wedge resection 2017 with benign pathology.
# Chronic hypotension requiring midodrine.
# History of PMR currently not on steroids.
# History of CVA, status post angioplasty/stent at the left vertebral artery 2019 at [facility].
# Valvular disease with mild MR/moderate AI
# History of longstanding tobacco abuse, currently not smoking
# History of COVID-19 infection
CODE STATUS DNR according to prior records and admissions.
DVT prophylaxis: HSQ with resolution of hemoptysis
Dispo: PT recommended SNF
Anticipated Discharge: > 48 hours
Subjective/Interval History
-
Date of Service: April 03, 2024
Patient was seen and examined. She was getting dialysis at the time she was seen.
Objective Data
-
Labs:
Laboratory Results
04/03/24
07:39
Hgb Pending
Hct Pending
Sodium Pending
Potassium Pending
Chloride Pending
Carbon Dioxide Pending
Vital Signs:
Vital Signs
Temp Pulse Resp BP Pulse Ox
98.5 F 82 16 141/76 95
04/02/24 23:17 04/03/24 07:29 04/02/24 23:17 04/03/24 07:29 04/02/24 23:17
I&O
04/02/24 04/03/24 04/04/24
06:59 06:59 06:59
Intake Total 480 / 480 540 / 540
Balance 480 / 480 540 / 540
[2024-04-03 08:17] LABS: Hematocrit 27.7 % (37.0-47.0); Hemoglobin 9.2 g/dL (12.0-16.0)
[2024-04-03 08:28] LABS: Carbon Dioxide 26 mmol/L (22-30); Chloride 96 mmol/L (98-107); Potassium 4.4 mmol/L (3.5-5.1); Sodium 138 mmol/L (135-145)
--- NOTE | 2024-04-03 09:30 | W.PN.PUL.V3 ---
Today's Communication / Plan
-
Hemodialysis
Bronchoscopy 04/03/2024
Assessment
-
Patient is a 73-year-old female with previous history of end-stage renal disease on HD MWF, coronary artery disease, history of right thoracotomy with right lower lobe wedge resection 2019, ischemic cardiomyopathy, stroke presenting to ER with
complaints of 3 to 4 weeks of severe generalized fatigue, productive cough with occasional hemoptysis and right sided back pain. She had prior imaging in the past including at outside hospital demonstrating potential right lower lobe disease that
has not been followed up. CT obtained on this admission showing large right lower lobe consolidation likely pneumonia. We are consulted for eval.
Impression:
Right lower lobe pneumonia, cannot rule out malignancy
Hemoptysis - improved
Generalized weakness
Productive cough
Right sided back pain
Conditions present prior to admission:
End-stage renal disease on HD
She has declined dialysis in the past, discussed hospice, has not yet agreed
Right upper extremity brachial DVT
Recent hospitalization-discharge 11/04/22-sepsis from E. coli bacteremia
CAD status post CABG-subsequent PCI
Hypertension
Hyperlipidemia�
Chronic kidney disease
Polycystic kidney status post renal transplant-2004
Chronic immunosuppression
Chronic hyperparathyroidism
Hypothyroid
Seizure history
AAA
Aortic dissection
History of TIA
PMR
Osteopenia
Peripheral neuropathy
Restless legs
CVA status post angioplasty and stenting of left vertebral artery 2018
Gait
Disturbance with left hand weakness following right basal ganglia CVA 2019
Cholecystectomy.� Partial hysterectomy.� Kidney transplant.� Lower extremity stent-left SFA.� Multiple Mohs procedures.� Esophageal repair
Plan
Relatively stable from a pulmonary perspective
Continue supplemental oxygen as needed-currently on room air
Incentive spirometry
Nebulizers if needed-currently not bronchospastic-former [id number] smoker quit 2 years ago
Mucinex 600 mg twice daily
Mucus clearing devices
Aspiration precautions
Monitor hemoptysis-resolved
PFT 10/06/17: FEV1 2.35L 82%, FVC 3.21L 86%, ratio 73. TLC 4.76L 84%, DLCO 45% (normal reza/volumes, moderate diffusion impairment)
CT with right lower lobe consolidation-pneumonia versus malignancy
Status post course of antibiotics
Considering she has right lower lobe infiltrate with adjacent heterogeneously enhancing rounded density which is suspicious for neoplasia, we will set up for bronchoscopy with BAL +/- brushing vs transbronchial needle biopsy. Bronchoscopy scheduled
04/03/2024-pending
She has noted in the past that if she were to have malignancy, she may withdraw from dialysis-she reiterated this to nephrology
Hemodialysis 04/03/2024-reviewed with technologist
Nephrology following-correspondence reviewed-patient reiterated that if she had a malignancy she would discontinue hemodialysis-hospice has been discussed in the past-not yet agreeable
DVT prophylaxis-on subcu heparin
Nutrition
Significantly deconditioned/physical therapy/Occupational Therapy
Diagnostic Data
CXR 12/03/22 - IMPRESSION: Limited exam due to patient rotation. New central line catheter. No pneumothorax. Mild vague bilateral pneumonia. Not significantly changed compared to the exam 2 days ago.
CXR 12/01/22- IMPRESSION: Mild to moderate residual bilateral pneumonia, significantly improved.
CT Chest 11/18/22- IMPRESSION: 1. Moderate to severe multifocal pneumonia throughout all lobes.
Chest 09/15/19- 1. 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 No significant change compared to prior study. The remaining visualized portion of the thoracic and upper abdominal aorta
are of normal caliber.
2. Changes of mild centrilobular emphysema. Prior right lower lobe resection.
3. Small left thyroid nodule, measuring 7 mm in diameter, likely benign.
CT Chest 03/24/24- 1. Large amount of dense airspace consolidation in the basal segments of the right lower lobe most likely representing pneumonia. Bronchi to the basal segments are completely filled with secretions.
2. Chronic postoperative changes right lower lobe as seen on previous examinations. Evaluation for recurrent malignancy is not possible on this examination secondary to the superimposed consolidation.
3. Trace right pleural effusion. As above, some indistinct decreased attenuation superior right lobe of the liver which could be related to reactive edematous/inflammatory change. As warranted, could be further evaluated with follow-up
contrast-enhanced CT abdomen and pelvis after resolution of acute process.
4. Chronic approximately 1 cm nodule in the right lower lobe as detailed above, most likely benign given presence with slight interval increase in size dating back to 2013.
5. Advanced aortic atherosclerosis. Ectasia ascending aorta, 4.[address] AP 11/09/22 - IMPRESSION:
1. � Moderate hydronephrosis of right iliac fossa transplant kidney. No obstructing calculi are identified.
2. � Small bowel lateral pleural effusions with adjacent atelectasis, right greater than left.
3. � Innumerable hepatic cysts and probable cysts.
4. � Small volume of ascites. Anasarca.
5. � Diverticulosis without diverticulitis.
6. � Abdominal aortic aneurysm measuring up to 3.4 cm in diameter.
ECHO 11/11/22- Mildly reduced left ventricular systolic function. Left ventricular ejection fraction is 45%.�Hypokinesis of the basal to mid inferolateral and lateral segments.�Mild/moderate mitral regurgitation.
Moderate aortic regurgitation. ��Mild tricuspid regurgitation. Estimated pulmonary artery pressure of 25-30 mmHg assuming a right atrial pressure of 3 mmHg. �Normal PASP. Compared to 09/15/19: LVEF has declined from 60-65% to 45%; there
is�inferolateral and lateral hypokinesis; and AR has progressed from mild/moderate�to moderate.
PFT 10/06/17: FEV1 2.35L 82%, FVC 3.21L 86%, ratio 73. TLC 4.76L 84%, DLCO 45% (normal reza/volumes, moderate diffusion impairment)
Reports and relevant images were personally reviewed.
Subjective Data
-
Date of Service:
Date of Service: April 03, 2024
Chief Complaint: Pulmonary Follow Up (Pneumonia) and Dyspnea Follow Up
Subjective:
No complaints of worsening shortness of breath, has some dyspnea on exertion, no chest pain, productive cough, abdominal pain, receiving hemodialysis
Review of Systems
General: Other (Per HPI)
Objective Data
Data Reviewed
Vital Signs / I&O:
Vital Signs
Temp Pulse Resp BP Pulse Ox
98.3 F 82 16 141/76 91
04/03/24 07:25 04/03/24 07:29 04/03/24 07:25 04/03/24 07:29 04/03/24 07:25
Intake and Output
04/02/24 04/03/24 04/04/24
06:59 06:59 06:59
Intake Total 480 / 480 540 / 540
Balance 480 / 480 540 / 540
SaO2: 91
Physical Exam
General: Respiratory Distress (negative) and Comfortable
HEENT: Normocephalic and Anicteric
Cardiovascular: Regular Rhythm and Peripheral Edema (negative)
Respiratory: Wheeze (negative), Crackles (Right base), Rhonchi (Right base) and Non-Labored Respirations
GI: Soft, Non Distended, Non Tender and Normal Bowel Sounds
Neurology: Awake, Alert, AO x 3 and Tremors (negative)
Skin: Warm, Dry, Good Color, Cyanosis (n), Jaundice (n) and Rash (n)
Labs/Micro/Reports
Lab Data
04/03/24 07:39
04/03/24 07:39
Microbiology
03/30/24 02:44 Sputum Respiratory Culture - Final
Usual Respiratory Irina
03/30/24 02:44 Sputum Gram Stain - Final
[2024-04-03] MEDS: RETACRIT 4000 UNITS IV (09:38)
--- NOTE | 2024-04-03 09:43 | W.PN.ONC2 ---
Today's Communication / Plan
-
awaiting path.
Cancer related symptoms currently are generalized weakness, not something we can readily palliate or that would improve with treatment.
Pain controlled with oxy IR prn
Impression
Impression
Right lower lobe lung mass, contiguous with right liver mass
ESRD on HD MWF
failed renal transplant, polycystic kidney disease
CAD, CVA, CHF
Plan
Plan
CT images, suspicious for malignancy involving RLL and right lobe of liver
Biopsy to evaluate further, to be via bronch. Patient agreeable. Plavix will need to be held x5 days prior. Would hold ASA as well.
She has expressed that she would probably want hospice if cancer but wants to proceed with biopsy and hear about any treatments that might be realistic for her, such as targeted therapy.
Subjective/Objective
Chief Complaint
no new complaints
Subjective
afebrile, no hypoxia or hypotension
using oxycodone IR prn pain
Vital Signs:
Vital Signs
Temp Pulse Resp BP Pulse Ox
98.3 F 82 16 141/76 91
04/03/24 07:25 04/03/24 07:29 04/03/24 07:25 04/03/24 07:29 04/03/24 09:30
Lab Results:
Laboratory Data
WBC 12.7 10^3/uL (4.8-10.8) H 04/02/24 09:05
Hgb 9.2 g/dL (12.0-16.0) L 04/03/24 07:39
Plt Count 292 10^3/uL (130-400) 04/02/24 09:05
eGFR 8.94 04/02/24 09:05
Physical Exam
HEENT: Moist Mucous Membranes; No Jaundice
Cardiology: S1 and S2
Pulmonary: Clear
GI: Soft
Extremities: No Edema
Neuro: Other (speech clear)
Review of Systems
Review of Systems
ROS notable for subjective, otherwise negative
--- NOTE | 2024-04-03 10:02 | W.PN.NEPH.HD ---
Assessment
-
pt seen during HD
vitals stable SBP 114
below EDW, so no UF
plan bronchoscopy today
AVF functions well, likely d/c CVC this admit
Progress Note - Hemodialysis
-
Date of Service: April 03, 2024
Duration: 30 minutes and 3 hours
Potassium Bath: 3
Calcium Bath: 2.5
Opti-Dialyzer: 160
Ultrafiltration: Other (0)
Blood Flow: 400
Dialysate Flow: 600
Heparin: no
EPO: 4000
[2024-04-03] MEDS: FLEXBUMIN 25% FOR HEMODIALYSIS 12.5 GRAMS IV (10:15)
[2024-04-03] MEDS: MANNITOL 25% 12.5 GRAMS IV (10:19)
--- NOTE | 2024-04-03 11:37 | CM ---
Reviewed the chart notes. Patient currently on HD. Per notes, plan for bronchoscopy +- endobronchial biopsy. CM continues to be available to patient/family and is monitoring medical plan for needs at discharge.
Plan: Discharge to SNF/rehab once medically stable. [facility] reviewing. HD flow sheets sent last week.
[2024-04-03] MEDS: FIRST-MOUTHWASH BLM SUSPENSION PO (14:00)
--- NOTE | 2024-04-03 15:55 | CON.CAR ---
Addendum entered and electronically signed by Anjum Salvador MD 04/03/24 18:17:
73 yo female with PMH of CAD/CABG, and then stenting, last to Lcx 2016, also with PAD, with left SFA and vertebral artery stenting, ESRD on HD. Admitted with hemoptysis. Underwent bronchoscopy with biopsy. Significant valerie blood was noted. At time
of my interview, patient has no cardiac complaints. Exam with RRR, no murmurs, no edema. Hgb 9.2.
Pulmonology communication reviewed. ASA and Plavix need to be held today.
From cardiac perspective, it would be acceptable to resume ASA 81mg only once safe post procedure.
Original Note:
Consultation
Consultation Request
Date/Time Consultation Requested: 04/03/2024 15:44
Date/Time Consultation Performed: 04/03/2024 16:00
Requesting Provider: Dr. Alegria
Performing Provider: MANUEL Vasquez for Dr. Salvador
Reason for Consultation: Question about aspirin therapy
Medical History
-
Chief Complaint: Weakness
History of Present Illness:
Jaycee Vega is a 73-year-old female (known to Dr. Yost, her primary publicity consultant, last seen in the outpatient setting 02/2020), with CAD (prior CABG x 1 and PCI's), hypertension, dyslipidemia, CVA with vertebral artery stent, TIA, polycystic
kidney disease with failed transplant on hemodialysis, cardiomyopathy, prior longstanding tobacco abuse, and PAD/PVD presented to the emergency department with a chief complaint of weakness. She endorsed a productive cough with hemoptysis. She has
been followed by pulmonary, nephrology, and oncology. Cardiology was consulted today for recommendations regarding clopidogrel and aspirin.
Past Medical History
Past Medical History: CAD (CABG & prior PCI), CVA, HTN, Hypercholesterolemia, Renal Failure (ESRD on HD [PCK]) and Other (PVD)
Past Surgical History: Cardiac
Social History
Tobacco: Former Smoker
Living: Alone
Employment: Retired
Family History
Family History: Reviewed & Not Pertinent
Allergies / Home Medications
Allergy/AdvReac Type Severity Reaction Status Date / Time
adhesive tape Allergy Itching Verified 03/24/24 10:40
�Medication �Instructions �Recorded �Confirmed �Type
atorvastatin 40 mg tablet 40 mg PO HS High cholesterol 11/04/12 03/24/24 History
aspirin 81 mg tablet,delayed 81 mg PO DAILY Blood clot 10/14/15 03/24/24 History
release prevention/tx
clopidogrel 75 mg tablet 75 mg PO DAILY Blood clot 10/27/22 03/24/24 History
prevention/tx
midodrine 10 mg tablet 10 mg PO MOWEFR@1400 hypotension 04/02/23 03/24/24 History
isosorbide mononitrate 30 mg 30 mg PO DAILY Heart 10/14/23 03/24/24 History
tablet,extended release 24 hr Disease/Condition
duloxetine 60 mg capsule,delayed 60 mg PO HS Depression 10/19/23 03/24/24 History
release (Cymbalta)
cinacalcet 60 mg tablet (Sensipar) 60 mg PO QPM Kidney Disease 02/15/24 03/24/24 History
Review of Systems
-
History Source: Patient
All other systems: Negative unless noted
Constitutional: Fatigue
EENT: No Symptoms
Respiratory: Cough and Hemoptysis
Cardiac: No Symptoms
Abdomen/GI: No Symptoms
: No Symptoms
Musculoskeletal: No Symptoms
Skin: No Symptoms
Neurological: Weakness
Endocrine: No Symptoms
Hematologic/Lymphatic: No Symptoms
Physical Exam
Vital Signs
Temp Pulse Resp BP Pulse Ox
98.4 F 86 16 145/82 91
04/03/24 15:05 04/03/24 15:05 04/03/24 15:05 04/03/24 15:05 04/03/24 15:05
Lab Results
04/03/24 07:39
04/03/24 07:39
Troponin I < 0.012 ng/ml 03/24/24 12:08
Vzg-T-Szoruwxsbxy Pept 5340 pg/ml 03/24/24 12:08
Physical Exam
General: Well Developed, Well Nourished, No Apparent Distress and Comfortable
HEENT: Normocephalic, Anicteric and Moist Mucous Membranes
Respiratory: Clear and Non Labored Respirations
Cardiac: S1/S2 and Regular Rhythm
Breast: Deferred by me
GI: Soft, Non Tender, Non Distended and Normal Bowel Sounds
Rectal: Deferred by Provider
Genito-urinary: No Costovertebral Tender
Musculoskeletal: No Clubbing, No Cyanosis and No Edema
Skin: Warm and Dry
Neuro: AO x 3
Hematologic/Lymphatic: No Lymphadenopathy
Psych: Calm
Impression / Plan
-
Right lower lobe lung mass with hemoptysis
-Pulmonary and oncology following
-Bronchoscopy today with valerie blood throughout the right lower lobe airway without active bleeding, pulmonary recommends holding aspirin/clopidogrel
CAD
-Stable without chest pain
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
-PCI of SVG�circumflex (2003), PCI of proximal circumflex (2015)
-Would recommend resumption of aspirin when able per pulmonary
Cardiomyopathy (LVEF 45%, 10/2022), type unknown
-She does not appear to be in acute/decompensated heart failure
-Medical therapy is limited given her advanced kidney disease requiring hemodialysis
-Volume managed by hemodialysis
PAD/PVD, angioplasty and stenting of left SFA (2012)
Polycystic kidney disease s/p renal transplant (2004) with ESRD on HD, nephrology following
Moderate aortic regurgitation (TTE 10/2022)
Prior CVA status post left vertebral stent (2018), follows with Dr. Medellin in the outpatient setting, outpatient notes reflect clopidogrel was stopped by [facility] during her Nov, 2023 admission with a fall
Prior extensive tobacco use, quit 2022
Data Reviewed
-
EKG: Report Reviewed by me (Sinus rhythm, PVCs, PACs, prolonged QT, rate 85)
CT Scan: Report Reviewed by me (Abdomen/pelvis: posterior and inferior right lower lobe of the lung and extending into the adjacent posterior and superior right liver, there is a heterogeneously enhancing rounded density, which likely represents a
mass, and is highly suspicious for neoplasia.)
Labs: Labs Reviewed by me
Old Records: Reviewed
--- NOTE | 2024-04-03 16:17 | W.PN.UPDATE ---
Update Note
Progress Note Update
See bronchoscopy note for complete details.
It is noted that there was valerie blood throughout the right lower lobe airway, bloody plugs throughout the right middle lobe, right mainstem
This was removed. There is no visual evidence of active bleeding, however with sequential lavage of right lower lobe lateral basal segment, valerie blood returned
No obvious endobronchial lesion noted, however right lower lobe lateral basal segment with abnormal appearing mucosa, nodular, edematous, erythematous
BAL, brushings and endobronchial mucosal biopsies were obtained of the right lower lobe lateral basal segment
Cultures also sent from BAL
Based on bronchoscopy finding, concerned about ongoing bleeding from right lower lobe. Unclear if this may be involving tumor or liver abnormality.
Would continue to hold aspirin/Plavix for now
Await cultures, pathology, biopsy, brushings, cytology
Based on results, consider repeat imaging in the next 2 to 6 weeks
Will obtain chest x-ray upon return to floor this pm
The above was relayed by [place] text to primary service, oncology, pulmonary, nephrology
[2024-04-03] MEDS: SENSIPAR 60 MG PO (18:04)
[2024-04-03] MEDS: CYMBALTA DELAYED RELEASE 60 MG PO (22:00)
[2024-04-03] MEDS: LIPITOR 40 MG PO (22:02)
[2024-04-04 05:53] VITALS: BMI 18.3
[2024-04-04 07:20] VITALS: BP 167/66
--- NOTE | 2024-04-04 08:33 | W.PN.CD ---
Addendum entered and electronically signed by Dayan Yost MD 04/04/24 09:40:
I saw and examined the patient.
The REGISTERED NURSE MATERNAL CHILD's note was reviewed and I agree with the note.
Comment: Patient without complaint of chest pain or pressure. Still with hemoptysis. SHe has rhoncherous bs b/l, rrr, legs without edema. I discussed with her possibly continuing on only aspirin. She states she cannot get out of the house to
purchase it, so asking if could stay on clopidogrel instead. I would prefer baby aspirin, will ask CM for help.
Original Note:
Today's Communication / Plan
-
Continue to hold ASA per pulmonary recommendation
Await am lab results
Impression / Plan
-
BACKGROUND: 73F with CAD (prior CABG x 1 and PCI's), hypertension, dyslipidemia, CVA with vertebral artery stent, TIA, polycystic kidney disease with failed transplant on hemodialysis, cardiomyopathy, prior longstanding tobacco abuse, and PAD/PVD
presented to the emergency department with a chief complaint of weakness. She endorsed a productive cough with hemoptysis.
Podiatrist: Dr. Yost
Right lower lobe lung mass with hemoptysis
-Pulmonary and oncology following
-Bronchoscopy yesterday with valerie blood throughout the right lower lobe airway without active bleeding, pulmonary recommends holding aspirin/clopidogrel
Abnormal chest CT
-Suspicious for malignancy involving RLL and right lobe of liver
-Onc following
CAD
-Stable without chest pain
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
-PCI of SVG�circumflex (2003), PCI of proximal circumflex (2015)
-Would recommend resumption of aspirin when able per pulmonary
Cardiomyopathy (LVEF 45%, 10/2022), type unknown
-She does not appear to be in acute/decompensated heart failure
-Medical therapy is limited given her advanced kidney disease requiring hemodialysis
-Volume managed by hemodialysis
PAD/PVD, angioplasty and stenting of left SFA (2012)
Polycystic kidney disease s/p renal transplant (2004) with ESRD on HD, nephrology following
Moderate aortic regurgitation (TTE 10/2022)
Prior CVA status post left vertebral stent (2018), follows with Dr. Medellin in the outpatient setting, outpatient notes reflect clopidogrel was stopped by [facility] during her Nov, 2023 admission with a fall
Prior extensive tobacco use, quit 2022, continued cessation recommended
SUBJECTIVE:
Non productive moist cough. Denies CP. Feels fatigued.
Physical Exam
Vital Signs/Labs
Vital Signs
Temp Pulse Resp BP Pulse Ox
98.0 F 71 16 167/66 100
04/04/24 07:20 04/04/24 07:20 04/04/24 07:20 04/04/24 07:20 04/04/24 07:20
04/03/24 04/04/24 04/05/24
06:59 06:59 06:59
Actual Weight 54.703 kg 54.567 kg
Magnesium 1.9 mg/dl (1.6-2.3) 03/29/24 13:07
03/24/24
12:08
Qcj-A-Edllhhspmic Pept 5340
Physical Exam
Constitutional: No acute distress and Comfortable
EENT: Anicteric and Moist mucous membranes
Cardiovascular: Rhythm & rate is regular, Pedal edema is absent and S1S2 is normal
Respiratory: Respiratory effort normal, Lungs clear to auscul. and Other (poor inspiratory effort)
GI: Soft, Distention absent, Flat, Non tender and Normal bowel sounds
Neuro/Psych: AO x 3
Other: Skin (warm and dry)
Data Reviewed
-
Date of Service: April 04, 2024
Old Records: Reviewed
[2024-04-04] MEDS: LIDOCAINE 4% PATCH TOPICAL ×2 (08:40→08:45)
[2024-04-04] MEDS: IMDUR (EXTENDED RELEASE) 30 MG PO (08:40)
[2024-04-04] MEDS: HEPARIN 5000 UNITS SC ×2 (08:40→20:51)
[2024-04-04] MEDS: FIRST-MOUTHWASH BLM SUSPENSION 5 ML PO ×4 (08:40→20:50)
[2024-04-04] MEDS: MUCINEX 600 MG PO ×2 (08:41→20:49)
[2024-04-04] MEDS: ROXICODONE 5 MG PO ×3 (08:48→20:56)
--- NOTE | 2024-04-04 09:37 | W.PN.PUL.V3 ---
Today's Communication / Plan
-
Tolerated bronchoscopy
Wean oxygen
Monitor hemoptysis
Cultures, cytology and pathology pending
Hemodialysis tomorrow
Assessment
-
Patient is a 73-year-old female with previous history of end-stage renal disease on HD MWF, coronary artery disease, history of right thoracotomy with right lower lobe wedge resection 2019, ischemic cardiomyopathy, stroke presenting to ER with
complaints of 3 to 4 weeks of severe generalized fatigue, productive cough with occasional hemoptysis and right sided back pain. She had prior imaging in the past including at outside hospital demonstrating potential right lower lobe disease that
has not been followed up. CT obtained on this admission showing large right lower lobe consolidation likely pneumonia. We are consulted for eval.
Impression:
Right lower lobe pneumonia, cannot rule out malignancy
Hemoptysis - improved
Generalized weakness
Productive cough
Right sided back pain
Conditions present prior to admission:
End-stage renal disease on HD
She has declined dialysis in the past, discussed hospice, has not yet agreed
Right upper extremity brachial DVT
Recent hospitalization-discharge 11/04/22-sepsis from E. coli bacteremia
CAD status post CABG-subsequent PCI
Hypertension
Hyperlipidemia�
Chronic kidney disease
Polycystic kidney status post renal transplant-2004
Chronic immunosuppression
Chronic hyperparathyroidism
Hypothyroid
Seizure history
AAA
Aortic dissection
History of TIA
PMR
Osteopenia
Peripheral neuropathy
Restless legs
CVA status post angioplasty and stenting of left vertebral artery 2018
Gait
Disturbance with left hand weakness following right basal ganglia CVA 2019
Cholecystectomy.� Partial hysterectomy.� Kidney transplant.� Lower extremity stent-left SFA.� Multiple Mohs procedures.� Esophageal repair
Plan
She continues to be stable from a pulmonary perspective with exception of mild persistent hemoptysis
Continue supplemental oxygen as needed-currently on room air
Incentive spirometry
Nebulizers if needed-currently not bronchospastic-former [id number] smoker quit 2 years ago
Mucinex 600 mg twice daily
Mucus clearing devices
Aspiration precautions
Monitor hemoptysis-resolved
PFT 10/06/17: FEV1 2.35L 82%, FVC 3.21L 86%, ratio 73. TLC 4.76L 84%, DLCO 45% (normal reza/volumes, moderate diffusion impairment)
CT with right lower lobe consolidation-pneumonia versus malignancy
Status post course of antibiotics
Considering she has right lower lobe infiltrate with adjacent heterogeneously enhancing rounded density which is suspicious for neoplasia, we will set up for bronchoscopy with BAL +/- brushing vs transbronchial needle biopsy. Bronchoscopy
04/03/2024-Dr. Swanson-valerie blood throughout right lower lobe airway, bloody plugs throughout right middle lobe and right mainstem removed, no visual evidence for active bleeding, sequential lavages of right lower lobe basilar segment with valerie
blood returning, no obvious endobronchial lesions however right lower lobe lateral basilar segment with abnormal appearing mucosa, nodular and edematous and erythematous, BAL, brushings and endobronchial mucosal biopsies were obtained, culture sent,
recommend holding aspirin and Plavix for now
Bronchoscopy-BAL cultures-routine, fungal and AFB-pending
Uictximglmau-GGC-sjxgwtzw-pending
Bronchoscopy-endobronchial biopsy-pending
She has noted in the past that if she were to have malignancy, she may withdraw from dialysis-she reiterated this to nephrology
Hemodialysis 04/05/24
Nephrology following-correspondence reviewed-patient reiterated that if she had a malignancy she would discontinue hemodialysis-hospice has been discussed in the past-not yet agreeable
DVT prophylaxis-on subcu heparin
Nutrition
Significantly deconditioned/physical therapy/Occupational Therapy
Diagnostic Data
CXR 12/03/22 - IMPRESSION: Limited exam due to patient rotation. New central line catheter. No pneumothorax. Mild vague bilateral pneumonia. Not significantly changed compared to the exam 2 days ago.
CXR 12/01/22- IMPRESSION: Mild to moderate residual bilateral pneumonia, significantly improved.
CT Chest 11/18/22- IMPRESSION: 1. Moderate to severe multifocal pneumonia throughout all lobes.
Chest 09/15/19- 1. 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 No significant change compared to prior study. The remaining visualized portion of the thoracic and upper abdominal aorta
are of normal caliber.
2. Changes of mild centrilobular emphysema. Prior right lower lobe resection.
3. Small left thyroid nodule, measuring 7 mm in diameter, likely benign.
CT Chest 03/24/24- 1. Large amount of dense airspace consolidation in the basal segments of the right lower lobe most likely representing pneumonia. Bronchi to the basal segments are completely filled with secretions.
2. Chronic postoperative changes right lower lobe as seen on previous examinations. Evaluation for recurrent malignancy is not possible on this examination secondary to the superimposed consolidation.
3. Trace right pleural effusion. As above, some indistinct decreased attenuation superior right lobe of the liver which could be related to reactive edematous/inflammatory change. As warranted, could be further evaluated with follow-up
contrast-enhanced CT abdomen and pelvis after resolution of acute process.
4. Chronic approximately 1 cm nodule in the right lower lobe as detailed above, most likely benign given presence with slight interval increase in size dating back to 2013.
5. Advanced aortic atherosclerosis. Ectasia ascending aorta, 4.[address] AP 11/09/22 - IMPRESSION:
1. � Moderate hydronephrosis of right iliac fossa transplant kidney. No obstructing calculi are identified.
2. � Small bowel lateral pleural effusions with adjacent atelectasis, right greater than left.
3. � Innumerable hepatic cysts and probable cysts.
4. � Small volume of ascites. Anasarca.
5. � Diverticulosis without diverticulitis.
6. � Abdominal aortic aneurysm measuring up to 3.4 cm in diameter.
ECHO 11/11/22- Mildly reduced left ventricular systolic function. Left ventricular ejection fraction is 45%.�Hypokinesis of the basal to mid inferolateral and lateral segments.�Mild/moderate mitral regurgitation.
Moderate aortic regurgitation. ��Mild tricuspid regurgitation. Estimated pulmonary artery pressure of 25-30 mmHg assuming a right atrial pressure of 3 mmHg. �Normal PASP. Compared to 09/15/19: LVEF has declined from 60-65% to 45%; there
is�inferolateral and lateral hypokinesis; and AR has progressed from mild/moderate�to moderate.
PFT 10/06/17: FEV1 2.35L 82%, FVC 3.21L 86%, ratio 73. TLC 4.76L 84%, DLCO 45% (normal reza/volumes, moderate diffusion impairment)
Reports and relevant images were personally reviewed.
Subjective Data
-
Date of Service:
Date of Service: April 04, 2024
Chief Complaint: Pulmonary Follow Up (Pneumonia) and Dyspnea Follow Up
Subjective:
No complaints of shortness of breath at rest, no chest pain, as flank pain without change, no abdominal pain, mild hemoptysis some chest congestion as well
Review of Systems
General: Other (Per HPI)
Objective Data
Data Reviewed
Vital Signs / I&O:
Vital Signs
Temp Pulse Resp BP Pulse Ox
98.0 F 71 16 167/66 100
04/04/24 07:20 04/04/24 07:20 04/04/24 07:20 04/04/24 07:20 04/04/24 07:20
Intake and Output
04/03/24 04/04/24 04/05/24
06:59 06:59 06:59
Intake Total 540 / 540 265 / 265
Balance 540 / 540 265 / 265
SaO2: 100
Nasal Cannula flow liters per minute: 3
Physical Exam
General: Respiratory Distress (negative) and Comfortable
HEENT: Normocephalic and Anicteric
Cardiovascular: Regular Rhythm and Peripheral Edema (negative)
Respiratory: Wheeze (negative), Crackles (Right base), Rhonchi (Right base) and Non-Labored Respirations
GI: Soft, Non Distended, Non Tender and Normal Bowel Sounds
Neurology: Awake, Alert, AO x 3 and Tremors (negative)
Skin: Warm, Dry, Good Color, Cyanosis (n), Jaundice (n) and Rash (n)
Labs/Micro/Reports
Microbiology
04/03/24 16:15 Bronch Right Lower Lobe Gram Stain - Preliminary
04/03/24 16:15 Bronch Right Lower Lobe Fungal Culture - Preliminary
Culture in progress.
Positive cultures are reported as soon as detected.
Final report to follow in four to five weeks.
03/30/24 02:44 Sputum Respiratory Culture - Final
Usual Respiratory Irina
03/30/24 02:44 Sputum Gram Stain - Final
--- NOTE | 2024-04-04 10:17 | W.PN.ONC2 ---
Today's Communication / Plan
-
awaiting path.
Cancer related symptoms currently are generalized weakness, not something we can readily palliate or that would improve with treatment.
Pain controlled with oxy IR prn
Impression
Impression
Right lower lobe lung mass, contiguous with right liver mass s/p bronch 04/03 with valerie blood noted RLL
ESRD on HD MWF - pays for car service
failed renal transplant, polycystic kidney disease
CAD, CVA, CHF
Plan
Plan
CT images, suspicious for malignancy involving RLL and right lobe of liver
04/03 s/p bronch with BAL, brushings and endobronchial biopsies RLL -follow for pathology
Palliative vs comfort focused goals TBD based on pathology
Subjective/Objective
Chief Complaint
Sitting in chair no distress
mild hemoptysis
Labs pending today
Subjective
Denies SOB, chest pain
No change in flank pain, using oxy IR prn with adequate relief
Vital Signs:
Vital Signs
Temp Pulse Resp BP Pulse Ox
98.0 F 71 16 167/66 100
04/04/24 07:20 04/04/24 07:20 04/04/24 07:20 04/04/24 07:20 04/04/24 09:37
Lab Results:
Laboratory Data
WBC 12.7 10^3/uL (4.8-10.8) H 04/02/24 09:05
Hgb 9.2 g/dL (12.0-16.0) L 04/03/24 07:39
Plt Count 292 10^3/uL (130-400) 04/02/24 09:05
eGFR 8.94 04/02/24 09:05
Physical Exam
HEENT: Moist Mucous Membranes; No Jaundice
Cardiology: S1 and S2
Pulmonary: Clear
GI: Soft
Extremities: No Edema
Neuro: Other (speech clear)
Review of Systems
Review of Systems
ROS notable for subjective, otherwise negative
[2024-04-04 10:59] VITALS: BP 144/67; PULSE 75
--- NOTE | 2024-04-04 11:55 | CM ---
Reviewed the chart notes and spoke with the patient at the bedside. CM consult for aspirin was received. Discussed with patient about obtaining aspiring. CM inquired how patient receives food. Patient orders through [employer]. Explained since
aspirin is an OTC product she can order along with her food supplies. Discussed with patient that [facility] [place] has accepted her at discharge. No precert required. CM continues to be available to patient/family and is monitoring
medical plan for needs at discharge.
Plan: Discharge to SNF once medically stable. No precert required.
[2024-04-04 15:20] VITALS: BP 133/66
--- NOTE | 2024-04-04 15:26 | W.PN.NEPH.PH ---
Today's Communication / Plan
-
HD tomorrow
d/c CVC
Assessment/Plan
-
Assessment
ESRD
Right lower lobe consolidation
Right lower lobe nodule
Hypertension
Coronary artery disease with bypass
Peripheral arterial disease
Tertiary hyperparathyroidism
Plan
CT shows RLL and liver contiguous mass, s/p bronch 04/03, pending path
Next dialysis tomorrow
AVF functions well so plan to d/c CVC
pt would do hospice if CA, but would likely continue current treatment if not CA
-
-
Date of Service: April 04, 2024
CC / HPI / ROS
-
Chief Complaint:
ESRD
History of Present Illness:
ESRD on Wednesday
Hemodynamically more stable, requires midodrine with dialysis
Anemia stable
Review of Systems:
no sob, cough is dry since bronch
no other complaints
right chest pain -no change
Labs
-
Labs:
eGFR 8.94 04/02/24 09:05
Pzg-M-Kabxvjtfbqb Pept 5340 pg/ml 03/24/24 12:08
Physical Exam
-
Vital Signs:
Vital Signs
Temp Pulse Resp BP Pulse Ox
98.0 F 71 16 167/66 100
04/04/24 07:20 04/04/24 07:20 04/04/24 07:20 04/04/24 07:20 04/04/24 12:22
Cardiovascular:: Regular rate and rhythm
Respiratory:: Bilateral: CTA
Lung Excursion:: Normal
Abdomen:: Nontender and Soft
Extremity Edema:: None: Bilateral:
Shukla Catheter: No
--- NOTE | 2024-04-04 16:29 | W.PN.HOSP.TC ---
Today's Communication/Plan
-
Discussed with pulmonary -- recommendation was to keep patient hospitalized for at least one more day to see what happens with her hemoptysis
Assessment / Plan
Assessment / Plan
Physical Exam
General: Not in Acute Distress
HEENT: Normocephalic and Atraumatic
Respiratory: Clear to Auscultation Bilaterally
Cardiac: Regular Rhythm and S1/S2
GI: Soft, Nontender and Nondistended. Positive bowel sounds.
Skin: Warm. Dry.
Neuro: Awake, Alert and Oriented
Psych: Calm and Intact Judgement/Insight
Assessment/Plan
HPI: 73 years old female with history of right lower lobe wedge resection with benign pathology, ESRD on HD; presented with weeks of generalized fatigue, productive cough and hemoptysis.
# Right lower lobe pneumonia with mild hemoptysis, productive cough with hemoptysis, occasional right-sided back pain
Hemoptysis resolved
CT chest noted dense airspace consolidation in the basal segments of the right lower lobe most likely presenting pneumonia (but also cannot rule out malignancy). Bronchial to the distal segments are completely filled with secretions.
MRSA screen negative, blood culture negative
Hemoptysis has resolved
broad-spectrum antibiotics Vancomycin/Zosyn/doxycycline -> s/p PO antibiotics
Appreciate pulm input
# R flank pain with new L liver mass
# R lumbar pain
# Right Lower Lobe Atelectasis
# Right lower lobe lung mass, contiguous with right liver mass
# Right Lower Lobe and Right Medial Lobe blood from bronchoscopy - valerie blood throughout the right lower lobe airway, bloody plugs throughout the right middle lobe, right mainstem
CT AP noted right lower lobe lung mass contiguous with right liver mass contiguous from previous right lower lobe lung mass
Discussed finding with pt, pt would like to proceed with liver biopsy and if mass is malignant, she would like to proceed with hospice
Dr. Carrasquillo discussed with specialists (IR, Onc, Pulm), felt liver biopsy too invasion given it would be approached via the pleura
now plan for bronchoscopy +- endobronchial biopsy, tentatively scheduled for 04/04/2024
Continue to hold MACHINE RIGGER Plavix and ASA as per pulmonary given bleeding during bronchoscopy -- consulted cardiology for guidance on this (patient sees Dr. Yost outpatient)
Cont trial of lidocaine patch and Flexeril (which helps with pain per pt)
Cont Oxycodone PRN
Bronchoscopy performed on 04/04/24, blood present, hold antiplatelet agents for now, and await cultures, pathology, biopsy, brushings, cytology
Based on results, consider repeat imaging in the next 2 to 6 weeks
# CAD/PAD/prior CVA on DAPT MACHINE RIGGER.
# PAD with left SFA angioplasty and stenting 2012
# h/o CABG 2002
# Ischemic cardiomyopathy with LVEF of 45% (decreased from 60 to 65%)
DAPT on hold -- as per pulmonary given bleeding during bronchoscopy -- consulted cardiology for guidance on this (patient sees Dr. Yost outpatient)
When resuming antiplatelet medication, cardiology recommends baby Aspirin 81 mg (will need case management help to arrange for patient to be able to get this medication, if she is to take it)
Continue MACHINE RIGGER statin, Imdur
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
# Anemia of chronic disease.
# Polycystic kidney disease with bilateral nephrectomy 2003
Currently not on immunosuppression.
hemodialysis Wednesday.
Continue midodrine
# Failure to thrive with generalized fatigue
PT recc SNF
Other medical conditions:
# Right thoracotomy with right lower lobe wedge resection 2017 with benign pathology.
# Chronic hypotension requiring midodrine.
# History of PMR currently not on steroids.
# History of CVA, status post angioplasty/stent at the left vertebral artery 2019 at [facility].
# Valvular disease with mild MR/moderate AI
# History of longstanding tobacco abuse, currently not smoking
# History of COVID-19 infection
CODE STATUS DNR according to prior records and admissions.
DVT prophylaxis: HSQ with resolution of hemoptysis
Dispo: PT recommended SNF
Anticipated Discharge: 24 - 48 hours
Subjective/Interval History
-
Date of Service: April 04, 2024
Patient was seen and examined. She reports having bloody sputum with her cough earlier this morning/overnight.
Objective Data
-
Labs:
Laboratory Results
04/04/24
08:05
WBC Pending
Hgb Pending
Hct Pending
Plt Count Pending
Sodium Pending
Potassium Pending
Chloride Pending
Carbon Dioxide Pending
BUN Pending
Creatinine Pending
Glucose Pending
Calcium Pending
Total Bilirubin Pending
AST Pending
ALT Pending
Alkaline Phosphatase Pending
Vital Signs:
Vital Signs
Temp Pulse Resp BP Pulse Ox
98.0 F 71 16 167/66 100
04/04/24 07:20 04/04/24 07:20 04/04/24 07:20 04/04/24 07:20 04/04/24 12:22
I&O
04/03/24 04/04/24 04/05/24
06:59 06:59 06:59
Intake Total 540 / 540 265 / 265
Balance 540 / 540 265 / 265
[2024-04-04] MEDS: SENSIPAR 60 MG PO (17:30)
--- NOTE | 2024-04-04 19:52 | PTCARENOTE ---
AM labs CBC, CMP, mag reordered for 20:00 tonight per MD. Phlebotomy made aware.
[2024-04-04 20:17] LABS: Hematocrit 28.6 % (37.0-47.0); Hemoglobin 9.1 g/dL (12.0-16.0); Mean Corp Hgb Conc. 31.8 g/dL (33.0-37.0); Mean Corpuscular Hgb 28.3 pg (27.0-31.0); Mean Corpuscular Volume 89.1 fL (81.0-99.0); Mean Platelet Volume 10.6 fL (7.4-10.4); Platelet Count 268 10^3/uL (130-400); Red Blood Cell Count 3.21 10^6/uL (4.20-5.40); Red Cell Dist. Width 16.4 % (11.5-14.5); White Blood Cell Count 10.4 10^3/uL (4.8-10.8)
[2024-04-04 20:34] LABS: ALT (SGPT) 11 U/L (0-35); AST (SGOT) 22 U/L (14-36); Albumin 3.9 g/dl (3.5-5.0); Alkaline Phosphatase 148 U/L (38-126); Blood Urea Nitrogen 39 mg/dl (7-17); Calcium 9.7 mg/dl (8.4-10.2); Carbon Dioxide 27 mmol/L (22-30); Chloride 98 mmol/L (98-107); Estimated Creatinine Clearance 11 ml/min; Glucose 81 mg/dl (70-99); Potassium 4.8 mmol/L (3.5-5.1); Sodium 140 mmol/L (135-145); Total Bilirubin 1.1 mg/dl (0.2-1.3); Total Protein 6.4 g/dl (6.3-8.2); eGFR 11.41
[2024-04-04] MEDS: LIPITOR 40 MG PO (20:49)
[2024-04-04] MEDS: CYMBALTA DELAYED RELEASE 60 MG PO (20:49)
[2024-04-04 23:31] VITALS: BP 123/65
[2024-04-05 05:54] VITALS: BMI 18.3
[2024-04-05] MEDS: EMLA CREAM 1 GRAM TOPICAL (06:19)
[2024-04-05] MEDS: ProAmatine 10 MG PO ×2 (07:57→15:57)
[2024-04-05] MEDS: MUCINEX 600 MG PO ×2 (07:58→20:26)
[2024-04-05] MEDS: FIRST-MOUTHWASH BLM SUSPENSION 5 ML PO ×4 (07:58→21:36)
[2024-04-05] MEDS: HEPARIN 5000 UNITS SC ×2 (07:59→20:26)
[2024-04-05 08:04] VITALS: BP 117/72
[2024-04-05] MEDS: LIDOCAINE 4% PATCH TOPICAL (08:05)
[2024-04-05] MEDS: MANNITOL 25% 12.5 GRAMS IV ×2 (08:10→09:48)
[2024-04-05] MEDS: ROXICODONE 5 MG PO ×3 (08:14→20:27)
[2024-04-05 08:19] VITALS: BP 117/72
[2024-04-05] MEDS: FLEXBUMIN 25% FOR HEMODIALYSIS 12.5 GRAMS IV ×2 (08:42→09:45)
[2024-04-05] MEDS: RETACRIT 4000 UNITS IV (08:43)
[2024-04-05 08:48] LABS: Hematocrit 27.6 % (37.0-47.0); Hemoglobin 8.8 g/dL (12.0-16.0); Mean Corp Hgb Conc. 31.9 g/dL (33.0-37.0); Mean Corpuscular Hgb 29.3 pg (27.0-31.0); Mean Platelet Volume 11.6 fL (7.4-10.4); Platelet Count 241 10^3/uL (130-400); Red Cell Dist. Width 16.4 % (11.5-14.5); White Blood Cell Count 11.2 10^3/uL (4.8-10.8)
[2024-04-05 09:04] LABS: Blood Urea Nitrogen 41 mg/dl (7-17); Carbon Dioxide 26 mmol/L (22-30); Chloride 97 mmol/L (98-107); Estimated Creatinine Clearance 10 ml/min; Glucose 82 mg/dl (70-99); Potassium 4.6 mmol/L (3.5-5.1); Sodium 138 mmol/L (135-145); eGFR 9.65
--- NOTE | 2024-04-05 09:10 | W.PN.CD ---
Today's Communication / Plan
-
-when ok with Pulm/medicine would recommend resuming asa 81mg only, stop clopidogrel
I will sign off please call with questions
Impression / Plan
-
BACKGROUND: 73F with CAD (prior CABG x 1 and PCI's), hypertension, dyslipidemia, CVA with vertebral artery stent, TIA, polycystic kidney disease with failed transplant on hemodialysis, cardiomyopathy, prior longstanding tobacco abuse, and PAD/PVD
presented to the emergency department with a chief complaint of weakness. She endorsed a productive cough with hemoptysis.
[employer]: Dr. Yost
Right lower lobe lung mass with hemoptysis
-Pulmonary and oncology following
-Bronchoscopy yesterday with valerie blood throughout the right lower lobe airway without active bleeding, pulmonary recommends holding aspirin/clopidogrel
-when ok with Pulm/medicine would recommend resuming asa 81mg only, stop clopidogrel
Abnormal chest CT
-Suspicious for malignancy involving RLL and right lobe of liver
-Onc following
CAD
-Stable without chest pain
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
-PCI of SVG�circumflex (2003), PCI of proximal circumflex (2015)
-Would recommend resumption of aspirin when able per pulmonary
Cardiomyopathy (LVEF 45%, 10/2022), type unknown
-She does not appear to be in acute/decompensated heart failure
-Medical therapy is limited given her advanced kidney disease requiring hemodialysis
-Volume managed by hemodialysis
Flank pain as per medicine
PAD/PVD, angioplasty and stenting of left SFA (2012)
Polycystic kidney disease s/p renal transplant (2004) with ESRD on HD, nephrology following
Moderate aortic regurgitation (TTE 10/2022)
Prior CVA status post left vertebral stent (2018), follows with Dr. Medellin in the outpatient setting, outpatient notes reflect clopidogrel was stopped by [facility] during her Nov, 2023 admission with a fall
Prior extensive tobacco use, quit 2022, continued cessation recommended
SUBJECTIVE:
Non productive moist cough. Denies CP. Feels fatigued.She has flank pain.
Physical Exam
Vital Signs/Labs
Vital Signs
Temp Pulse Resp BP Pulse Ox
97.7 F 68 14 117/72 94
04/05/24 08:19 04/05/24 08:19 04/05/24 08:19 04/05/24 08:19 04/05/24 08:56
04/04/24 04/05/24 04/06/24
06:59 06:59 06:59
Actual Weight 54.567 kg 54.601 kg
04/05/24 08:31
04/05/24 08:31
Magnesium 2.0 mg/dl (1.6-2.3) 04/04/24 20:11
03/24/24
12:08
Pqx-R-Gunutidwvli Pept 5340
Physical Exam
Constitutional: No acute distress
Cardiovascular: Rhythm & rate is regular, Systolic murmur absent, Diastolic murmur absent and S1S2 is normal
Respiratory: Respiratory effort normal, Lungs clear to auscul., Wheeze Absent, Crackles Absent and Rhonchi Absent
Neuro/Psych: AO x 3
Data Reviewed
-
Date of Service: April 05, 2024
Medical Decision Making: Review of Case with other Provider (dr capps add asa only when able, 81mg and stop clopidogrel)
--- NOTE | 2024-04-05 09:20 | W.PN.PUL.V3 ---
Today's Communication / Plan
-
Hemoptysis appears to be resolving
Hemodialysis
Resume aspirin
Hold Plavix
Await bronchoscopy cytology and pathology
Assessment
-
Patient is a 73-year-old female with previous history of end-stage renal disease on HD MWF, coronary artery disease, history of right thoracotomy with right lower lobe wedge resection 2019, ischemic cardiomyopathy, stroke presenting to ER with
complaints of 3 to 4 weeks of severe generalized fatigue, productive cough with occasional hemoptysis and right sided back pain. She had prior imaging in the past including at outside hospital demonstrating potential right lower lobe disease that
has not been followed up. CT obtained on this admission showing large right lower lobe consolidation likely pneumonia. We are consulted for eval.
Impression:
Right lower lobe pneumonia, cannot rule out malignancy
Hemoptysis - improved
Generalized weakness
Productive cough
Right sided back pain
Conditions present prior to admission:
End-stage renal disease on HD
She has declined dialysis in the past, discussed hospice, has not yet agreed
Right upper extremity brachial DVT
Recent hospitalization-discharge 11/04/22-sepsis from E. coli bacteremia
CAD status post CABG-subsequent PCI
Hypertension
Hyperlipidemia�
Chronic kidney disease
Polycystic kidney status post renal transplant-2004
Chronic immunosuppression
Chronic hyperparathyroidism
Hypothyroid
Seizure history
AAA
Aortic dissection
History of TIA
PMR
Osteopenia
Peripheral neuropathy
Restless legs
CVA status post angioplasty and stenting of left vertebral artery 2018
Gait
Disturbance with left hand weakness following right basal ganglia CVA 2018
Cholecystectomy.� Partial hysterectomy.� Kidney transplant.� Lower extremity stent-left SFA.� Multiple Mohs procedures.� Esophageal repair
Plan
She continues to be stable from a pulmonary perspective with exception of mild persistent hemoptysis-none for 24 hours
Continue supplemental oxygen as needed-currently on room air
Incentive spirometry encouraged
Nebulizers if needed-currently not bronchospastic-former 94-[id number] smoker quit 2 years ago
Mucinex 600 mg twice daily
Mucus clearing devices
Aspiration precautions continues
Monitor hemoptysis-appears to have resolved
PFT 10/06/17: FEV1 2.35L 82%, FVC 3.21L 86%, ratio 73. TLC 4.76L 84%, DLCO 45% (normal reza/volumes, moderate diffusion impairment)
CT with right lower lobe consolidation-pneumonia versus malignancy
Status post course of antibiotics
Considering she has right lower lobe infiltrate with adjacent heterogeneously enhancing rounded density which is suspicious for neoplasia, we will set up for bronchoscopy with BAL +/- brushing vs transbronchial needle biopsy. Bronchoscopy
04/03/2024-Dr. Swanson-valerie blood throughout right lower lobe airway, bloody plugs throughout right middle lobe and right mainstem removed, no visual evidence for active bleeding, sequential lavages of right lower lobe basilar segment with valerie
blood returning, no obvious endobronchial lesions however right lower lobe lateral basilar segment with abnormal appearing mucosa, nodular and edematous and erythematous, BAL, brushings and endobronchial mucosal biopsies were obtained, culture sent,
recommend holding aspirin and Plavix for now
Bronchoscopy-BAL cultures-routine, fungal and AFB-pending
[id number]-pending
Bronchoscopy-endobronchial biopsy-pending
She has noted in the past that if she were to have malignancy, she may withdraw from dialysis-she reiterated this to nephrology
Cardiology following-correspondence reviewed
Remain off clopidogrel-okay to resume aspirin and monitor for hemoptysis
Hemodialysis 04/05/24 ongoing
Nephrology following-correspondence reviewed-patient reiterated that if she had a malignancy she would discontinue hemodialysis-hospice has been discussed in the past-not yet agreeable
DVT prophylaxis-on subcu heparin
Nutrition
Significantly deconditioned/physical therapy/Occupational Therapy
Diagnostic Data
CXR 12/03/22 - IMPRESSION: Limited exam due to patient rotation. New central line catheter. No pneumothorax. Mild vague bilateral pneumonia. Not significantly changed compared to the exam 2 days ago.
CXR 12/01/22- IMPRESSION: Mild to moderate residual bilateral pneumonia, significantly improved.
CT Chest 11/18/22- IMPRESSION: 1. Moderate to severe multifocal pneumonia throughout all lobes.
Chest 09/15/19- 1. 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 No significant change compared to prior study. The remaining visualized portion of the thoracic and upper abdominal aorta
are of normal caliber.
2. Changes of mild centrilobular emphysema. Prior right lower lobe resection.
3. Small left thyroid nodule, measuring 7 mm in diameter, likely benign.
CT Chest 03/24/24- 1. Large amount of dense airspace consolidation in the basal segments of the right lower lobe most likely representing pneumonia. Bronchi to the basal segments are completely filled with secretions.
2. Chronic postoperative changes right lower lobe as seen on previous examinations. Evaluation for recurrent malignancy is not possible on this examination secondary to the superimposed consolidation.
3. Trace right pleural effusion. As above, some indistinct decreased attenuation superior right lobe of the liver which could be related to reactive edematous/inflammatory change. As warranted, could be further evaluated with follow-up
contrast-enhanced CT abdomen and pelvis after resolution of acute process.
4. Chronic approximately 1 cm nodule in the right lower lobe as detailed above, most likely benign given presence with slight interval increase in size dating back to 2013.
5. Advanced aortic atherosclerosis. Ectasia ascending aorta, 4.[address] AP 11/09/22 - IMPRESSION:
1. � Moderate hydronephrosis of right iliac fossa transplant kidney. No obstructing calculi are identified.
2. � Small bowel lateral pleural effusions with adjacent atelectasis, right greater than left.
3. � Innumerable hepatic cysts and probable cysts.
4. � Small volume of ascites. Anasarca.
5. � Diverticulosis without diverticulitis.
6. � Abdominal aortic aneurysm measuring up to 3.4 cm in diameter.
ECHO 11/11/22- Mildly reduced left ventricular systolic function. Left ventricular ejection fraction is 45%.�Hypokinesis of the basal to mid inferolateral and lateral segments.�Mild/moderate mitral regurgitation.
Moderate aortic regurgitation. ��Mild tricuspid regurgitation. Estimated pulmonary artery pressure of 25-30 mmHg assuming a right atrial pressure of 3 mmHg. �Normal PASP. Compared to 09/15/19: LVEF has declined from 60-65% to 45%; there
is�inferolateral and lateral hypokinesis; and AR has progressed from mild/moderate�to moderate.
PFT 10/06/17: FEV1 2.35L 82%, FVC 3.21L 86%, ratio 73. TLC 4.76L 84%, DLCO 45% (normal reza/volumes, moderate diffusion impairment)
Reports and relevant images were personally reviewed.
Subjective Data
-
Date of Service:
Date of Service: April 05, 2024
Chief Complaint: Pulmonary Follow Up (Pneumonia) and Dyspnea Follow Up
Subjective:
Chest congestion improved, no hemoptysis, no chest pain or abdominal pain, on hemodialysis
Review of Systems
General: Other (Per HPI)
Objective Data
Data Reviewed
Vital Signs / I&O:
Vital Signs
Temp Pulse Resp BP Pulse Ox
97.7 F 68 14 117/72 94
04/05/24 08:19 04/05/24 08:19 04/05/24 08:19 04/05/24 08:19 04/05/24 08:56
Intake and Output
04/04/24 04/05/24 04/06/24
06:59 06:59 06:59
Intake Total 265 / 265 720 / 720
Balance 265 / 265 720 / 720
SaO2: 94
Nasal Cannula flow liters per minute: 2
Physical Exam
General: Respiratory Distress (negative) and Comfortable
HEENT: Normocephalic and Anicteric
Cardiovascular: Regular Rhythm and Peripheral Edema (negative)
Respiratory: Wheeze (negative), Crackles (Right base), Rhonchi (Right base) and Non-Labored Respirations
GI: Soft, Non Distended, Non Tender and Normal Bowel Sounds
Neurology: Awake, Alert, AO x 3 and Tremors (negative)
Skin: Warm, Dry, Good Color, Cyanosis (n), Jaundice (n) and Rash (n)
Labs/Micro/Reports
Lab Data
04/05/24 08:31
04/05/24 08:31
Microbiology
04/03/24 16:15 Bronch Right Lower Lobe Gram Stain - Preliminary
04/03/24 16:15 Bronch Right Lower Lobe Fungal Culture - Preliminary
Culture in progress.
Positive cultures are reported as soon as detected.
Final report to follow in four to five weeks.
--- NOTE | 2024-04-05 09:46 | W.PN.NEPH.HD ---
Assessment
-
Seen on HD. no new complaints. still hemoptysis. VSS, access ok
not eating. try boost
Progress Note - Hemodialysis
-
Date of Service: April 05, 2024
Duration: 30 minutes and 3 hours
Potassium Bath: 2
Calcium Bath: 2.5
Opti-Dialyzer: 160
Ultrafiltration: Other (none)
Blood Flow: 400
Dialysate Flow: 600
Heparin: no
EPO: 4000 units
--- NOTE | 2024-04-05 11:28 | CM ---
Addendum entered by Sadaf Longoria RN 04/05/24 12:20:
IMM reviewed and placed on the chart.
Original Note:
Reviewed the chart notes. Patient for potential discharge today. CM continues to be available to patient/family and is monitoring medical plan for needs at discharge.
Plan: Discharge to [facility].
Call report to: [phone]
Fax report to: [phone]
[place] fax: [phone]
[2024-04-05] MEDS: IMDUR (EXTENDED RELEASE) 30 MG PO (12:05)
--- NOTE | 2024-04-05 14:02 | W.PN.HOSP.TC ---
Addendum entered and electronically signed by Abdullahi Alegria MD 04/05/24 15:21:
After speaking with the other physicians involved in patient's care, have cancelled discharge as it was thought best that patient should stay until the bronch pathology comes back positive for cancer, and if it�s negative she would need a liver
biopsy.
Original Note:
Today's Communication/Plan
-
Discharge today
Assessment / Plan
Assessment / Plan
Physical Exam
General: Not in Acute Distress
HEENT: Normocephalic and Atraumatic
Respiratory: Clear to Auscultation Bilaterally
Cardiac: Regular Rhythm and S1/S2
GI: Soft, Nontender and Nondistended. Positive bowel sounds.
Skin: Warm. Dry.
Neuro: Awake, Alert and Oriented
Psych: Calm and Intact Judgement/Insight
Assessment/Plan
HPI: 73 years old female with history of right lower lobe wedge resection with benign pathology, ESRD on HD; presented with weeks of generalized fatigue, productive cough and hemoptysis.
#Right lower lobe pneumonia with mild hemoptysis, productive cough with hemoptysis, occasional right-sided back pain
#Hemoptysis resolved
#Bronchoscopy 04/03/2024-Dr. Swanson-valerie blood throughout right lower lobe airway, bloody plugs throughout right middle lobe and right mainstem removed, no visual evidence for active bleeding, sequential lavages of right lower lobe basilar segment
with valerie blood returning, no obvious endobronchial lesions however right lower lobe lateral basilar segment with abnormal appearing mucosa, nodular and edematous and erythematous, BAL, brushings and endobronchial mucosal biopsies were obtained,
culture sent
CT chest noted dense airspace consolidation in the basal segments of the right lower lobe most likely presenting pneumonia (but also cannot rule out malignancy). Bronchial to the distal segments are completely filled with secretions.
MRSA screen negative, blood culture negative
Hemoptysis which patient had for the past at least 1-2 days, has now resolved
broad-spectrum antibiotics Vancomycin/Zosyn/doxycycline -> s/p PO antibiotics
Appreciate pulm input
Mucinex 600 mg twice daily
# R flank pain with new L liver mass
# R lumbar pain
# Right Lower Lobe Atelectasis
# Right lower lobe lung mass, contiguous with right liver mass
# Right Lower Lobe and Right Medial Lobe blood from bronchoscopy - valerie blood throughout the right lower lobe airway, bloody plugs throughout the right middle lobe, right mainstem
CT AP noted right lower lobe lung mass contiguous with right liver mass contiguous from previous right lower lobe lung mass
Discussed finding with pt, pt would like to proceed with liver biopsy and if mass is malignant, she would like to proceed with hospice
Dr. Carrasquillo discussed with specialists (IR, Onc, Pulm), felt liver biopsy too invasion given it would be approached via the pleura
now plan for bronchoscopy +- endobronchial biopsy, tentatively scheduled for 04/04/2024
Continue to hold [employer] Plavix
Okay to continue Aspirin 81 mg daily as per pulmonary and cardiology
Cont trial of lidocaine patch and Flexeril (which helps with pain per pt)
Cont Oxycodone PRN
Bronchoscopy performed on 04/04/24, blood present, hold antiplatelet agents for now, and await cultures, pathology, biopsy, brushings, cytology
Based on results, consider repeat imaging in the next 2 to 6 weeks
# CAD/PAD/prior CVA on DAPT [employer].
# PAD with left SFA angioplasty and stenting 2012
# h/o CABG 2002
# Ischemic cardiomyopathy with LVEF of 45% (decreased from 60 to 65%)
Continue Aspirin 81 mg daily
Continue [employer] statin, Imdur
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
# Anemia of chronic disease.
# Polycystic kidney disease with bilateral nephrectomy 2003
Currently not on immunosuppression.
hemodialysis Wednesday.
Continue midodrine
# Failure to thrive with generalized fatigue
PT recc SNF
Other medical conditions:
# Right thoracotomy with right lower lobe wedge resection 2017 with benign pathology.
# Chronic hypotension requiring midodrine.
# History of PMR currently not on steroids.
# History of CVA, status post angioplasty/stent at the left vertebral artery 2019 at [facility].
# Valvular disease with mild MR/moderate AI
# History of longstanding tobacco abuse, currently not smoking
# History of COVID-19 infection
CODE STATUS DNR according to prior records and admissions.
DVT prophylaxis: HSQ with resolution of hemoptysis
Dispo: PT recommended SNF
More than 30 minutes spent in discharge including
Final examination of the patient
Summarizing hospital stay
Instructions for continuing care to all relevant caregivers
Preparation of discharge records, prescriptions, and referral forms
Total time spent (in minutes): 41
Anticipated Discharge: Today
Subjective/Interval History
-
Date of Service: April 05, 2024
Patient was seen and examined. She reported no bloody cough/hemoptysis this morning. She was getting dialysis at the time she was seen.
Objective Data
-
Labs:
Laboratory Results
04/05/24
08:31
WBC 11.2 H
Hgb 8.8 L
Hct 27.6 L
Plt Count 241
Sodium 138
Potassium 4.6
Chloride 97 L
Carbon Dioxide 26
BUN 41 H
Creatinine 4.6 H*
Glucose 82
Calcium 10.0
Vital Signs:
Vital Signs
Temp Pulse Resp BP Pulse Ox
97.7 F 68 14 117/72 94
04/05/24 08:19 04/05/24 08:19 04/05/24 08:19 04/05/24 08:19 04/05/24 09:20
I&O
04/04/24 04/05/24 04/06/24
06:59 06:59 06:59
Intake Total 265 / 265 720 / 720 240 / 240
Balance 265 / 265 720 / 720 240 / 240
--- NOTE | 2024-04-05 15:00 | PTCARENOTE ---
Received patient from IR s/p R chest cath removal; dressing on R chest intact, per IR, can be removed in 2 days. Patient states no concerns at this time.
[2024-04-05 15:44] VITALS: BP 131/56
[2024-04-05] MEDS: SENSIPAR 60 MG PO (17:22)
[2024-04-05] MEDS: LIPITOR 40 MG PO (21:36)
[2024-04-05] MEDS: CYMBALTA DELAYED RELEASE 60 MG PO (21:36)
[2024-04-05 21:43] VITALS: BP 152/60
[2024-04-05] MEDS: ProAmatine PO (21:44)
[2024-04-05] MEDS: FLEXERIL 5 MG PO (22:54)
[2024-04-05 23:00] VITALS: BP 129/62
[2024-04-06 05:42] VITALS: BMI 18.4
[2024-04-06 07:26] VITALS: BP 168/65
[2024-04-06] MEDS: FIRST-MOUTHWASH BLM SUSPENSION 5 ML PO ×4 (08:23→21:39)
[2024-04-06] MEDS: HEPARIN 5000 UNITS SC ×2 (08:23→20:04)
[2024-04-06] MEDS: IMDUR (EXTENDED RELEASE) 30 MG PO (08:24)
[2024-04-06] MEDS: MUCINEX 600 MG PO ×2 (08:24→20:05)
[2024-04-06] MEDS: LIDOCAINE 4% PATCH TOPICAL ×2 (08:24→08:29)
[2024-04-06 08:49] LABS: Hematocrit 27.7 % (37.0-47.0); Hemoglobin 8.8 g/dL (12.0-16.0); Mean Corp Hgb Conc. 31.8 g/dL (33.0-37.0); Mean Corpuscular Hgb 28.6 pg (27.0-31.0); Mean Corpuscular Volume 89.9 fL (81.0-99.0); Mean Platelet Volume 11.4 fL (7.4-10.4); Platelet Count 227 10^3/uL (130-400); Red Blood Cell Count 3.08 10^6/uL (4.20-5.40); Red Cell Dist. Width 16.5 % (11.5-14.5); White Blood Cell Count 9.8 10^3/uL (4.8-10.8)
[2024-04-06 09:06] LABS: Blood Urea Nitrogen 20 mg/dl (7-17); Calcium 9.9 mg/dl (8.4-10.2); Carbon Dioxide 29 mmol/L (22-30); Chloride 96 mmol/L (98-107); Estimated Creatinine Clearance 14 ml/min; Glucose 82 mg/dl (70-99); Potassium 3.9 mmol/L (3.5-5.1); Sodium 139 mmol/L (135-145); eGFR 15.49
--- NOTE | 2024-04-06 09:10 | W.PN.PUL3 ---
Today's Communication / Plan
-
I have reviewed recent path report to patient and care team
Further discussions ongoing with CM/GOC
Will add airway clearance measures for now given cough
Will FU with team on care plan
Assessment
-
Patient is a 73-year-old female with previous history of end-stage renal disease on HD MWF, coronary artery disease, history of right thoracotomy with right lower lobe wedge resection 2019, ischemic cardiomyopathy, stroke presenting to ER with
complaints of 3 to 4 weeks of severe generalized fatigue, productive cough with occasional hemoptysis and right sided back pain. She had prior imaging in the past including at outside hospital demonstrating potential right lower lobe disease that
has not been followed up. CT obtained on this admission showing large right lower lobe consolidation likely pneumonia. We are consulted for eval.
Impression:
Right lower lobe pneumonia, s/p bronch/biopsy
Squamous cell ca + path
Hemoptysis - improved
Generalized weakness
Productive cough
Right sided back pain
Conditions present prior to admission:
End-stage renal disease on HD
She has declined dialysis in the past, discussed hospice, has not yet agreed
Right upper extremity brachial DVT
Recent hospitalization-discharge 11/04/22-sepsis from E. coli bacteremia
CAD status post CABG-subsequent PCI
Hypertension
Hyperlipidemia�
Chronic kidney disease
Polycystic kidney status post renal transplant-2004
Chronic immunosuppression
Chronic hyperparathyroidism
Hypothyroid
Seizure history
AAA
Aortic dissection
History of TIA
PMR
Osteopenia
Peripheral neuropathy
Restless legs
CVA status post angioplasty and stenting of left vertebral artery 2018
Gait
Disturbance with left hand weakness following right basal ganglia CVA 2018
Cholecystectomy.� Partial hysterectomy.� Kidney transplant.� Lower extremity stent-left SFA.� Multiple Mohs procedures.� Esophageal repair
Plan
She continues to be stable from a pulmonary perspective with exception of mild persistent hemoptysis-none for 24 hours
Continue supplemental oxygen as needed-currently on room air
Incentive spirometry encouraged
Nebulizers if needed-currently not bronchospastic-former [id number] smoker quit 2 years ago
Mucinex 600 mg twice daily
Mucus clearing devices
Aspiration precautions continues
Monitor hemoptysis-appears to have resolved
PFT 10/06/17: FEV1 2.35L 82%, FVC 3.21L 86%, ratio 73. TLC 4.76L 84%, DLCO 45% (normal reza/volumes, moderate diffusion impairment)
CT with right lower lobe consolidation-pneumonia versus malignancy
Status post course of antibiotics
Considering she has right lower lobe infiltrate with adjacent heterogeneously enhancing rounded density which is suspicious for neoplasia, we will set up for bronchoscopy with BAL +/- brushing vs transbronchial needle biopsy. Bronchoscopy
04/03/2024-Dr. Swanson-valerie blood throughout right lower lobe airway, bloody plugs throughout right middle lobe and right mainstem removed, no visual evidence for active bleeding, sequential lavages of right lower lobe basilar segment with valerie
blood returning, no obvious endobronchial lesions however right lower lobe lateral basilar segment with abnormal appearing mucosa, nodular and edematous and erythematous, BAL, brushings and endobronchial mucosal biopsies were obtained, culture sent,
recommend holding aspirin and Plavix for now
Bronchoscopy-BAL cultures-routine, fungal and AFB-pending
[id number]-[id number]-pending
Bronchoscopy-endobronchial biopsy-positive for Squamous Cell Ca- this was reviewed with patient and communicated to care team
She has noted in the past that if she were to have malignancy, she may withdraw from dialysis-she reiterated this to nephrology
Cardiology following-correspondence reviewed
Remain off clopidogrel-okay to resume aspirin and monitor for hemoptysis
Hemodialysis 04/05/24 ongoing
Nephrology following-correspondence reviewed-patient reiterated that if she had a malignancy she would discontinue hemodialysis-hospice has been discussed in the past-not yet agreeable
DVT prophylaxis-on subcu heparin
Nutrition
Significantly deconditioned/physical therapy/Occupational Therapy
Diagnostic Data
CXR 12/03/22 - IMPRESSION: Limited exam due to patient rotation. New central line catheter. No pneumothorax. Mild vague bilateral pneumonia. Not significantly changed compared to the exam 2 days ago.
CXR 12/01/22- IMPRESSION: Mild to moderate residual bilateral pneumonia, significantly improved.
CT Chest 11/18/22- IMPRESSION: 1. Moderate to severe multifocal pneumonia throughout all lobes.
Chest 09/15/19- 1. 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 No significant change compared to prior study. The remaining visualized portion of the thoracic and upper abdominal aorta
are of normal caliber.
2. Changes of mild centrilobular emphysema. Prior right lower lobe resection.
3. Small left thyroid nodule, measuring 7 mm in diameter, likely benign.
CT Chest 03/24/24- 1. Large amount of dense airspace consolidation in the basal segments of the right lower lobe most likely representing pneumonia. Bronchi to the basal segments are completely filled with secretions.
2. Chronic postoperative changes right lower lobe as seen on previous examinations. Evaluation for recurrent malignancy is not possible on this examination secondary to the superimposed consolidation.
3. Trace right pleural effusion. As above, some indistinct decreased attenuation superior right lobe of the liver which could be related to reactive edematous/inflammatory change. As warranted, could be further evaluated with follow-up
contrast-enhanced CT abdomen and pelvis after resolution of acute process.
4. Chronic approximately 1 cm nodule in the right lower lobe as detailed above, most likely benign given presence with slight interval increase in size dating back to 2013.
5. Advanced aortic atherosclerosis. Ectasia ascending aorta, 4.[address] AP 11/09/22 - IMPRESSION:
1. � Moderate hydronephrosis of right iliac fossa transplant kidney. No obstructing calculi are identified.
2. � Small bowel lateral pleural effusions with adjacent atelectasis, right greater than left.
3. � Innumerable hepatic cysts and probable cysts.
4. � Small volume of ascites. Anasarca.
5. � Diverticulosis without diverticulitis.
6. � Abdominal aortic aneurysm measuring up to 3.4 cm in diameter.
ECHO 11/11/22- Mildly reduced left ventricular systolic function. Left ventricular ejection fraction is 45%.�Hypokinesis of the basal to mid inferolateral and lateral segments.�Mild/moderate mitral regurgitation.
Moderate aortic regurgitation. ��Mild tricuspid regurgitation. Estimated pulmonary artery pressure of 25-30 mmHg assuming a right atrial pressure of 3 mmHg. �Normal PASP. Compared to 09/15/19: LVEF has declined from 60-65% to 45%; there
is�inferolateral and lateral hypokinesis; and AR has progressed from mild/moderate�to moderate.
PFT 10/06/17: FEV1 2.35L 82%, FVC 3.21L 86%, ratio 73. TLC 4.76L 84%, DLCO 45% (normal reza/volumes, moderate diffusion impairment)
Reports and relevant images were personally reviewed.
Subjective Data
-
Date of Service:
Date of Service: April 06, 2024
Chief Complaint: Pulmonary Follow Up (Pneumonia) and Dyspnea Follow Up
Subjective:
No new events, remains stable on RA
No new complaints
Coughing but not productive
Objective Data
Data Reviewed
Vital Signs / I&O / Oxygen:
Vital Signs
Temp Pulse Resp BP Pulse Ox
99.2 F 78 16 168/65 93
04/06/24 07:26 04/06/24 07:26 04/06/24 07:26 04/06/24 07:26 04/06/24 07:26
Intake and Output
04/05/24 04/06/24 04/07/24
06:59 06:59 06:59
Intake Total 720 / 720 480 / 480
Balance 720 / 720 480 / 480
SaO2 93
Nasal Cannula flow liters per 2
minute
Physical Exam
General: Respiratory Distress (negative) and Comfortable
HEENT: Normocephalic and Anicteric
Cardiovascular: Regular Rhythm and Peripheral Edema (negative)
Respiratory: Wheeze (negative), Crackles (Right base), Rhonchi (Right base) and Non-Labored Respirations
GI: Soft, Non Distended, Non Tender and Normal Bowel Sounds
Neurology: Awake, Alert, AO x 3 and Tremors (negative)
Skin: Warm, Dry, Good Color, Cyanosis (n), Jaundice (n) and Rash (n)
Labs/Micro/Reports
Lab Data
04/06/24 08:10
04/06/24 08:10
Microbiology
04/03/24 16:15 Bronch Right Lower Lobe Respiratory Culture - Preliminary
NO GROWTH
04/03/24 16:15 Bronch Right Lower Lobe Gram Stain - Preliminary
04/03/24 16:15 Bronch Right Lower Lobe Fungal Culture - Preliminary
Culture in progress.
Positive cultures are reported as soon as detected.
Final report to follow in four to five weeks.
--- NOTE | 2024-04-06 09:30 | W.PN.ONC2 ---
Today's Communication / Plan
-
follow for path
Impression
Impression
Right lower lobe lung mass, contiguous with right liver mass s/p bronch 04/03 with valerie blood noted RLL
ESRD on HD MWF - pays for car service
failed renal transplant, polycystic kidney disease
CAD, CVA, CHF
Plan
Plan
CT images, suspicious for malignancy involving RLL and right lobe of liver
04/03 s/p bronch with BAL, brushings and endobronchial biopsies RLL -follow for pathology
Palliative vs comfort focused goals TBD based on pathology
Subjective/Objective
Chief Complaint
no new complaints
Subjective
afebrile, no hypotension, no hypoxia
using oxy IR prn flank pain with fair control of pain
Vital Signs:
Vital Signs
Temp Pulse Resp BP Pulse Ox
99.2 F 78 16 168/65 93
04/06/24 07:26 04/06/24 07:26 04/06/24 07:26 04/06/24 07:26 04/06/24 07:26
Lab Results:
Laboratory Data
WBC 9.8 10^3/uL (4.8-10.8) 04/06/24 08:10
Hgb 8.8 g/dL (12.0-16.0) L 04/06/24 08:10
Plt Count 227 10^3/uL (130-400) 04/06/24 08:10
eGFR 15.49 04/06/24 08:10
Physical Exam
HEENT: Moist Mucous Membranes; No Jaundice
Cardiology: S1 and S2
Pulmonary: Clear
GI: Soft
Extremities: No Edema
Neuro: Other (speech clear)
Review of Systems
Review of Systems
ROS notable for subjective otherwise negative
[2024-04-06] MEDS: ROXICODONE 5 MG PO (09:45)
--- NOTE | 2024-04-06 10:07 | W.PN.HOSP.TC ---
Today's Communication/Plan
-
Continue to await biopsy results -- will need to keep patient here until biopsy has resulted, as per discussion with nephrology on 04/06/24
On and off significant pain in her right mid back and right upper flank pain area -- optimizing patient's pain regimen/discussing with clinical pharmacist
Assessment / Plan
Assessment / Plan
Physical Exam
General: Not in Acute Distress
HEENT: Normocephalic and Atraumatic
Respiratory: Clear to Auscultation Bilaterally
Cardiac: Regular Rhythm and S1/S2
GI: Soft, Nontender and Nondistended. Positive bowel sounds.
Skin: Warm. Dry.
Neuro: Awake, Alert and Oriented
Psych: Calm and Intact Judgement/Insight
Assessment/Plan
HPI: 73 years old female with history of right lower lobe wedge resection with benign pathology, ESRD on HD; presented with weeks of generalized fatigue, productive cough and hemoptysis.
#Right lower lobe pneumonia with mild hemoptysis, productive cough with hemoptysis, occasional right-sided back pain
#Hemoptysis resolved
#Bronchoscopy 04/03/2024-Dr. Swanson-valerie blood throughout right lower lobe airway, bloody plugs throughout right middle lobe and right mainstem removed, no visual evidence for active bleeding, sequential lavages of right lower lobe basilar segment
with valerie blood returning, no obvious endobronchial lesions however right lower lobe lateral basilar segment with abnormal appearing mucosa, nodular and edematous and erythematous, BAL, brushings and endobronchial mucosal biopsies were obtained,
culture sent
CT chest noted dense airspace consolidation in the basal segments of the right lower lobe most likely presenting pneumonia (but also cannot rule out malignancy). Bronchial to the distal segments are completely filled with secretions.
MRSA screen negative, blood culture negative
Hemoptysis which patient had for the past at least 1-2 days, has now resolved
broad-spectrum antibiotics Vancomycin/Zosyn/doxycycline -> s/p PO antibiotics
Appreciate pulm input
Mucinex 600 mg twice daily
# R flank pain with new L liver mass
# R lumbar pain
# Right Lower Lobe Atelectasis
# Right lower lobe lung mass, contiguous with right liver mass
# Right Lower Lobe and Right Medial Lobe blood from bronchoscopy - valerie blood throughout the right lower lobe airway, bloody plugs throughout the right middle lobe, right mainstem
CT AP noted right lower lobe lung mass contiguous with right liver mass contiguous from previous right lower lobe lung mass
Discussed finding with pt, pt would like to proceed with liver biopsy and if mass is malignant, she would like to proceed with hospice
Dr. Carrasquillo discussed with specialists (IR, Onc, Pulm), felt liver biopsy too invasion given it would be approached via the pleura
now plan for bronchoscopy +- endobronchial biopsy, tentatively scheduled for 04/04/2024
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
Okay to continue Aspirin 81 mg daily as per pulmonary and cardiology
Cont trial of lidocaine patch and Flexeril (which helps with pain per pt)
Cont Oxycodone PRN -- have asked clinical pharmacist to look into optimizing patient's pain regimen for more lasting and effective pain relief
Bronchoscopy performed on 04/04/24, blood present, hold antiplatelet agents for now, and await cultures, pathology, biopsy, brushings, cytology
Continue to await biopsy results -- will need to keep patient here until biopsy has resulted, as per discussion with nephrology on 04/06/24 (patient have to stay until the bronch path comes back positive for cancer but if it�s negative, patient will
still need a liver biopsy)
Based on results, consider repeat imaging in the next 2 to 6 weeks
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
# PAD with left SFA angioplasty and stenting 2012
# h/o CABG 2002
# Ischemic cardiomyopathy with LVEF of 45% (decreased from 60 to 65%)
Continue Aspirin 81 mg daily
Continue CERTIFIED PROSTHETIST VICE PRESIDENT statin, Imdur
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
# Anemia of chronic disease.
# Polycystic kidney disease with bilateral nephrectomy 2003
Currently not on immunosuppression.
hemodialysis Wednesday.
Continue midodrine
# Failure to thrive with generalized fatigue
PT recc SNF
Other medical conditions:
# Right thoracotomy with right lower lobe wedge resection 2018 with benign pathology.
# Chronic hypotension requiring midodrine.
# History of PMR currently not on steroids.
# History of CVA, status post angioplasty/stent at the left vertebral artery 2019 at [facility].
# Valvular disease with mild MR/moderate AI
# History of longstanding tobacco abuse, currently not smoking
# History of COVID-19 infection
CODE STATUS DNR according to prior records and admissions.
DVT prophylaxis: HSQ with resolution of hemoptysis
Dispo: PT recommended SNF
Anticipated Discharge: > 48 hours
Subjective/Interval History
-
Date of Service: April 06, 2024
Patient was seen and examined. She reported ongoing on and off pain (for weeks) in her right mid back and the side of her right upper abdomen.
Objective Data
-
Labs:
Laboratory Results
04/06/24
08:10
WBC 9.8
Hgb 8.8 L
Hct 27.7 L
Plt Count 227
Sodium 139
Potassium 3.9
Chloride 96 L
Carbon Dioxide 29
BUN 20 H
Creatinine 3.1 H
Glucose 82
Calcium 9.9
Vital Signs:
Vital Signs
Temp Pulse Resp BP Pulse Ox
99.2 F 78 16 168/65 93
04/06/24 07:26 04/06/24 07:26 04/06/24 07:26 04/06/24 07:26 04/06/24 07:26
I&O
04/05/24 04/06/24 04/07/24
06:59 06:59 06:59
Intake Total 720 / 720 480 / 480
Balance 720 / 720 480 / 480
--- NOTE | 2024-04-06 11:34 | W.PN.NEPH.PH ---
Today's Communication / Plan
-
hospice eval
Assessment/Plan
-
Assessment
ESRD
Right lower lobe consolidation
Right lower lobe nodule
Hypertension
Coronary artery disease with bypass
Peripheral arterial disease
Tertiary hyperparathyroidism
Plan
given bronch path of squamous cell CA, pt will likely move to hospice
Next dialysis tomorrow
-
-
Date of Service: April 06, 2024
CC / HPI / ROS
-
Chief Complaint:
ESRD
History of Present Illness:
ESRD on Wednesday
Hemodynamically more stable, requires midodrine with dialysis
Anemia stable
Review of Systems:
no sob, cough is dry since bronch
no other complaints
right back pain
Labs
-
Labs:
WBC 9.8 10^3/uL (4.8-10.8) 04/06/24 08:10
RBC 3.08 10^6/uL (4.20-5.40) L 04/06/24 08:10
Hgb 8.8 g/dL (12.0-16.0) L 04/06/24 08:10
Hct 27.7 % (37.0-47.0) L 04/06/24 08:10
Plt Count 227 10^3/uL (130-400) 04/06/24 08:10
Sodium 139 mmol/L (135-145) 04/06/24 08:10
Potassium 3.9 mmol/L (3.5-5.1) 04/06/24 08:10
Chloride 96 mmol/L (98-107) L 04/06/24 08:10
Carbon Dioxide 29 mmol/L (22-30) 04/06/24 08:10
BUN 20 mg/dl (7-17) H 04/06/24 08:10
Creatinine 3.1 mg/dL (0.6-1.0) H 04/06/24 08:10
eGFR 15.49 04/06/24 08:10
Glucose 82 mg/dl (70-99) 04/06/24 08:10
Calcium 9.9 mg/dl (8.4-10.2) 04/06/24 08:10
Tum-W-Npyryoscwgq Pept 5340 pg/ml 03/24/24 12:08
Albumin 3.9 g/dl (3.5-5.0) 04/04/24 20:11
Physical Exam
-
Vital Signs:
Vital Signs
Temp Pulse Resp BP Pulse Ox
99.2 F 78 16 168/65 93
04/06/24 07:26 04/06/24 07:26 04/06/24 07:26 04/06/24 07:26 04/06/24 08:00
Cardiovascular:: Regular rate and rhythm
Respiratory:: Bilateral: Coarse
Lung Excursion:: Normal
Abdomen:: Nontender and Soft
Bowel Sounds:: Normal
Extremity Edema:: None: Bilateral:
[2024-04-06] MEDS: TYLENOL 650 MG PO ×3 (12:01→23:50)
[2024-04-06] MEDS: SENOKOT-S 1 TABLET PO ×2 (12:01→21:42)
[2024-04-06] MEDS: MIRALAX 17 GRAMS PO (12:01)
[2024-04-06 12:04] VITALS: BP 141/63
--- NOTE | 2024-04-06 13:10 | CM ---
Reviewed the chart notes and spoke with the patient at the bedside. Hospice consult received and sent to Hospice. Patient waiting for results from bronch biopsy. CM continues to be available to patient/family and is monitoring medical plan for
needs at discharge.
Plan: Discharge plan is still to [facility] when medically stable. No precert required.
[2024-04-06 15:56] VITALS: BP 126/59
--- NOTE | 2024-04-06 16:44 | HOSPNOTE ---
Referral received. I called and spoke to the patient directly. I explained hospice and the philosophy to her. She is not sure if she wishes to seek treatment if the biopsy comes back as lung cancer. She also does not know what that treatment would
entail. She only has 2 close friends who live 2 hours away that could possibly help her but she has not talked with them about staying with her. She stated that she can not afford private caregivers or the room and board at a facility under hospice.
She also has not decided fully if hospice is what she wants as well. She states that she makes too much money for medicaid as well. She believes she may have to return to the nursing facility she came from. I am not certain if she were to stop HD
and all treatment if she would then qualify for inpatient hospice or if that is even something she would consider. Deferred from this topic at the time of conversation. CM and attending updated. Will continue to follow and be available if patient
wishes for hospice services.
[2024-04-06] MEDS: SENSIPAR 60 MG PO (17:19)
[2024-04-06] MEDS: ROXICODONE 2.5 MG PO ×2 (17:23→23:49)
[2024-04-06] MEDS: ZOFRAN 4 MG IV (20:06)
[2024-04-06] MEDS: LIPITOR 40 MG PO (21:39)
[2024-04-06] MEDS: CYMBALTA DELAYED RELEASE 60 MG PO (21:39)
[2024-04-06 23:19] VITALS: BP 130/53
[2024-04-07 06:00] VITALS: BMI 18.5
[2024-04-07] MEDS: TYLENOL 650 MG PO ×2 (06:20→12:45)
[2024-04-07 07:30] VITALS: BP 153/76
[2024-04-07] MEDS: ASPIR LOW (ENTERIC COATED) 81 MG PO (08:43)
[2024-04-07] MEDS: SENOKOT-S 1 TABLET PO (08:43)
[2024-04-07] MEDS: HEPARIN 5000 UNITS SC (08:43)
[2024-04-07] MEDS: ROXICODONE 2.5 MG PO ×3 (08:43→23:46)
[2024-04-07] MEDS: IMDUR (EXTENDED RELEASE) 30 MG PO (08:43)
[2024-04-07] MEDS: MUCINEX 600 MG PO ×2 (08:43→19:47)
[2024-04-07] MEDS: FIRST-MOUTHWASH BLM SUSPENSION 5 ML PO ×2 (08:44→12:45)
--- NOTE | 2024-04-07 08:45 | W.PN.ONC2 ---
Documented by User: MANUEL Amezcua 04/07/24 12:40
Today's Communication / Plan
-
Case management consult for hospice
Impression
Impression
Squamous cell carcinoma, invasive, poorly differentiated cx bronch 04/03. RLL of the lung and extending into the adjacent posterior and superior right liver
ESRD on HD MWF - pays for car service
failed renal transplant, polycystic kidney disease
CAD, CVA, CHF
Plan
Plan
squamous cell carcinoma inferior right lower lobe of the lung and extending into the adjacent posterior and superior right liver
Palliative vs comfort focused
Subjective/Objective
Chief Complaint
no new complaints
labs pending
Subjective
afebrile no hypoxia or hypotension
right flank pain, using oxy IR prn
Vital Signs:
Vital Signs
Temp Pulse Resp BP Pulse Ox
98.4 F 68 19 130/53 96
04/06/24 23:19 04/06/24 23:19 04/06/24 23:19 04/06/24 23:19 04/06/24 23:19
Lab Results:
Laboratory Data
WBC 9.8 10^3/uL (4.8-10.8) 04/06/24 08:10
Hgb 8.8 g/dL (12.0-16.0) L 04/06/24 08:10
Plt Count 227 10^3/uL (130-400) 04/06/24 08:10
eGFR 15.49 04/06/24 08:10
Review of Systems
Review of Systems
ROS notable for subjective, otherwise negative

Documented by User: Husam Walton MD 04/07/24 13:29
Plan
Plan
squamous cell carcinoma inferior right lower lobe of the lung and extending into the adjacent posterior and superior right liver
Palliative vs comfort focused
Oncology Addendum:
Patient seen and evaluated and agree w/ [employer] note and plan as outlined
-advanced NSCLC - squamous cell subtype - w/ liver invasion
-patient expressed that she is not interested in treatment for her advanced malignancy
-discussed supportive care options including hospice
-after discussion - pt expressed and understanding and interest in transition to hospice care
-consult hospice
[2024-04-07] MEDS: LIDOCAINE 4% PATCH TOPICAL (08:46)
[2024-04-07] MEDS: ProAmatine 10 MG PO (08:46)
[2024-04-07] MEDS: MIRALAX PO (08:47)
--- NOTE | 2024-04-07 08:56 | W.PN.PUL3 ---
Today's Communication / Plan
-
Patient has decided to enroll into hospice
She offers no complaints, stable on RA
HD to be held per renal team
We will sign off at this time, please call with questions
Assessment
-
Patient is a 73-year-old female with previous history of end-stage renal disease on HD MWF, coronary artery disease, history of right thoracotomy with right lower lobe wedge resection 2019, ischemic cardiomyopathy, stroke presenting to ER with
complaints of 3 to 4 weeks of severe generalized fatigue, productive cough with occasional hemoptysis and right sided back pain. She had prior imaging in the past including at outside hospital demonstrating potential right lower lobe disease that
has not been followed up. CT obtained on this admission showing large right lower lobe consolidation likely pneumonia. We are consulted for eval.
Impression:
Right lower lobe pneumonia, s/p bronch/biopsy
Squamous cell ca + path
Hemoptysis - improved
Generalized weakness
Productive cough
Right sided back pain
Conditions present prior to admission:
End-stage renal disease on HD
She has declined dialysis in the past, discussed hospice, has not yet agreed
Right upper extremity brachial DVT
Recent hospitalization-discharge 11/04/22-sepsis from E. coli bacteremia
CAD status post CABG-subsequent PCI
Hypertension
Hyperlipidemia�
Chronic kidney disease
Polycystic kidney status post renal transplant-2004
Chronic immunosuppression
Chronic hyperparathyroidism
Hypothyroid
Seizure history
AAA
Aortic dissection
History of TIA
PMR
Osteopenia
Peripheral neuropathy
Restless legs
CVA status post angioplasty and stenting of left vertebral artery 2018
Gait
Disturbance with left hand weakness following right basal ganglia CVA 2018
Cholecystectomy.� Partial hysterectomy.� Kidney transplant.� Lower extremity stent-left SFA.� Multiple Mohs procedures.� Esophageal repair
Plan
She continues to be stable from a pulmonary perspective with exception of mild persistent hemoptysis-none for 24 hours
Continue supplemental oxygen as needed-currently on room air
Incentive spirometry encouraged
Nebulizers if needed-currently not bronchospastic-former [id number] smoker quit 2 years ago
Mucinex 600 mg twice daily
Mucus clearing devices
Aspiration precautions continues
Monitor hemoptysis-appears to have resolved
PFT 10/06/17: FEV1 2.35L 82%, FVC 3.21L 86%, ratio 73. TLC 4.76L 84%, DLCO 45% (normal reza/volumes, moderate diffusion impairment)
CT with right lower lobe consolidation-pneumonia versus malignancy
Status post course of antibiotics
Considering she has right lower lobe infiltrate with adjacent heterogeneously enhancing rounded density which is suspicious for neoplasia, we will set up for bronchoscopy with BAL +/- brushing vs transbronchial needle biopsy. Bronchoscopy
04/03/2024-Dr. Swanson-valerie blood throughout right lower lobe airway, bloody plugs throughout right middle lobe and right mainstem removed, no visual evidence for active bleeding, sequential lavages of right lower lobe basilar segment with valerie
blood returning, no obvious endobronchial lesions however right lower lobe lateral basilar segment with abnormal appearing mucosa, nodular and edematous and erythematous, BAL, brushings and endobronchial mucosal biopsies were obtained, culture sent,
recommend holding aspirin and Plavix for now
Bronchoscopy-BAL cultures-routine, fungal and AFB-pending
Vshxxauljoxk-ORL-bemxlluy-pending
Bronchoscopy-endobronchial biopsy-positive for Squamous Cell Ca- this was reviewed with patient and communicated to care team
She has noted in the past that if she were to have malignancy, she may withdraw from dialysis-she reiterated this to nephrology
Cardiology following-correspondence reviewed
Remain off clopidogrel-okay to resume aspirin and monitor for hemoptysis
Hemodialysis 04/05/24 ongoing
Nephrology following-correspondence reviewed-patient reiterated that if she had a malignancy she would discontinue hemodialysis-hospice has been discussed in the past-not yet agreeable
DVT prophylaxis-on subcu heparin
Nutrition
Significantly deconditioned/physical therapy/Occupational Therapy
Hospice consult, she has now enrolled
Diagnostic Data
CXR 12/03/22 - IMPRESSION: Limited exam due to patient rotation. New central line catheter. No pneumothorax. Mild vague bilateral pneumonia. Not significantly changed compared to the exam 2 days ago.
CXR 12/01/22- IMPRESSION: Mild to moderate residual bilateral pneumonia, significantly improved.
CT Chest 11/18/22- IMPRESSION: 1. Moderate to severe multifocal pneumonia throughout all lobes.
Chest 09/15/19- 1. 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 No significant change compared to prior study. The remaining visualized portion of the thoracic and upper abdominal aorta
are of normal caliber.
2. Changes of mild centrilobular emphysema. Prior right lower lobe resection.
3. Small left thyroid nodule, measuring 7 mm in diameter, likely benign.
CT Chest 03/24/24- 1. Large amount of dense airspace consolidation in the basal segments of the right lower lobe most likely representing pneumonia. Bronchi to the basal segments are completely filled with secretions.
2. Chronic postoperative changes right lower lobe as seen on previous examinations. Evaluation for recurrent malignancy is not possible on this examination secondary to the superimposed consolidation.
3. Trace right pleural effusion. As above, some indistinct decreased attenuation superior right lobe of the liver which could be related to reactive edematous/inflammatory change. As warranted, could be further evaluated with follow-up
contrast-enhanced CT abdomen and pelvis after resolution of acute process.
4. Chronic approximately 1 cm nodule in the right lower lobe as detailed above, most likely benign given presence with slight interval increase in size dating back to 2013.
5. Advanced aortic atherosclerosis. Ectasia ascending aorta, 4.[address] AP 11/09/22 - IMPRESSION:
1. � Moderate hydronephrosis of right iliac fossa transplant kidney. No obstructing calculi are identified.
2. � Small bowel lateral pleural effusions with adjacent atelectasis, right greater than left.
3. � Innumerable hepatic cysts and probable cysts.
4. � Small volume of ascites. Anasarca.
5. � Diverticulosis without diverticulitis.
6. � Abdominal aortic aneurysm measuring up to 3.4 cm in diameter.
ECHO 11/11/22- Mildly reduced left ventricular systolic function. Left ventricular ejection fraction is 45%.�Hypokinesis of the basal to mid inferolateral and lateral segments.�Mild/moderate mitral regurgitation.
Moderate aortic regurgitation. ��Mild tricuspid regurgitation. Estimated pulmonary artery pressure of 25-30 mmHg assuming a right atrial pressure of 3 mmHg. �Normal PASP. Compared to 09/15/19: LVEF has declined from 60-65% to 45%; there
is�inferolateral and lateral hypokinesis; and AR has progressed from mild/moderate�to moderate.
PFT 10/06/17: FEV1 2.35L 82%, FVC 3.21L 86%, ratio 73. TLC 4.76L 84%, DLCO 45% (normal reza/volumes, moderate diffusion impairment)
Reports and relevant images were personally reviewed.
Subjective Data
-
Date of Service:
Date of Service: April 07, 2024
Chief Complaint: Pulmonary Follow Up (Pneumonia) and Dyspnea Follow Up
Subjective:
No new complaints, stable on RA
Has decided to enroll into hospice
Objective Data
Data Reviewed
Vital Signs / I&O / Oxygen:
Vital Signs
Temp Pulse Resp BP Pulse Ox
98.4 F 68 19 130/53 96
04/06/24 23:19 04/06/24 23:19 04/06/24 23:19 04/07/24 08:46 04/06/24 23:19
Intake and Output
04/06/24 04/07/24 04/08/24
06:59 06:59 06:59
Intake Total 480 / 480 0 / 1840
Balance 480 / 480 0 / 1840
SaO2 96
Nasal Cannula flow liters per 2
minute
Physical Exam
General: Respiratory Distress (negative) and Comfortable
HEENT: Normocephalic and Anicteric
Cardiovascular: Regular Rhythm and Peripheral Edema (negative)
Respiratory: Wheeze (negative), Crackles (Right base), Rhonchi (Right base) and Non-Labored Respirations
GI: Soft, Non Distended, Non Tender and Normal Bowel Sounds
Neurology: Awake, Alert, AO x 3 and Tremors (negative)
Skin: Warm, Dry, Good Color, Cyanosis (n), Jaundice (n) and Rash (n)
Labs/Micro/Reports
Microbiology
04/03/24 16:15 Bronch Right Lower Lobe Respiratory Culture - Final
NO GROWTH
04/03/24 16:15 Bronch Right Lower Lobe Gram Stain - Final
04/03/24 16:15 Bronch Right Lower Lobe Acid Fast Bacilli Smear - Preliminary
04/03/24 16:15 Bronch Right Lower Lobe Acid Fast Bacilli Culture - Preliminary
04/03/24 16:15 Bronch Right Lower Lobe Fungal Culture - Preliminary
Culture in progress.
Positive cultures are reported as soon as detected.
Final report to follow in four to five weeks.
--- NOTE | 2024-04-07 10:01 | HOSPNOTE ---
Addendum entered by Deena Rachel RN 04/07/24 14:10:
Spoke to attending and to patient. Both have confirmed that patient has been transitioned to comfort care. She states that she does not wish for any further treatments or therapies including dialysis. I reviewed that we will monitor her over the
next 24-48 hours to see if she develops unmanageable symptoms that would warrant inpatient hospice. She states that the person listed Ruben on her chart is who she has appointed to make decisions for her in the event that she can not. I called
and spoke to Ruben and updated her on patients condition and patients wishes to focus on comfort and remain in the hospital. I also informed Ruben that patient has appointed her to make decisions on her behalf if she was not able to do so.
Ruben is upset but respects the patients decision and will support patient. Patient understands that on comfort we will focus on keeping her comfortable and that she will likely pass in the hospital and she is in agreement with this. Attending
and CM updated. Hospice will continue to follow through the weekend.
Original Note:
Hospice continues to follow. Spoke with CM this morning regarding patients situation. There is a possibility that if patient chose hospice and was not inpatient appropriate that the [facility] could provide assistance. Will await patients final decision
after biopsy results come in. We will continue to be available as she needs.
[2024-04-07 10:17] LABS: Hematocrit 31.2 % (37.0-47.0); Hemoglobin 9.9 g/dL (12.0-16.0); Mean Corp Hgb Conc. 31.7 g/dL (33.0-37.0); Mean Corpuscular Hgb 29.4 pg (27.0-31.0); Mean Corpuscular Volume 92.6 fL (81.0-99.0); Mean Platelet Volume 11.5 fL (7.4-10.4); Platelet Count 223 10^3/uL (130-400); Red Blood Cell Count 3.37 10^6/uL (4.20-5.40); Red Cell Dist. Width 16.7 % (11.5-14.5); White Blood Cell Count 8.6 10^3/uL (4.8-10.8)
--- NOTE | 2024-04-07 10:47 | W.PN.NEPH.PH ---
Today's Communication / Plan
-
HD tomorrow at pt request
Assessment/Plan
-
Assessment
ESRD
Right lower lobe consolidation
Right lower lobe nodule
Hypertension
Coronary artery disease with bypass
Peripheral arterial disease
Tertiary hyperparathyroidism
Plan
given bronch path of squamous cell CA, pt will likely move to hospice
awaiting Onc discussion to decide on final plan
She wants to hold on HD today as she is too overwhelmed
Next dialysis tomorrow
If she moves comfort care then likely benefit from Inpt
d/w primary and CM
-
-
Date of Service: April 07, 2024
CC / HPI / ROS
-
Chief Complaint:
ESRD
History of Present Illness:
ESRD on Wednesday
Hemodynamically more stable, requires midodrine with dialysis
Anemia stable
Review of Systems:
no sob, cough is dry since bronch
no other complaints
unable eat well with nausea
Labs
-
Labs:
WBC 8.6 10^3/uL (4.8-10.8) 04/07/24 09:43
RBC 3.37 10^6/uL (4.20-5.40) L 04/07/24 09:43
Hgb 9.9 g/dL (12.0-16.0) L 04/07/24 09:43
Hct 31.2 % (37.0-47.0) L 04/07/24 09:43
Plt Count 223 10^3/uL (130-400) 04/07/24 09:43
eGFR 15.49 04/06/24 08:10
Ujo-U-Hwclaczqzgo Pept 5340 pg/ml 03/24/24 12:08
Albumin 3.9 g/dl (3.5-5.0) 04/04/24 20:11
Physical Exam
-
Vital Signs:
Vital Signs
Temp Pulse Resp BP Pulse Ox
97.7 F 72 16 130/53 92
04/07/24 07:30 04/07/24 07:30 04/07/24 07:30 04/07/24 08:46 04/07/24 07:30
Extremity Edema:: None: Bilateral:
Shukla Catheter: No
Other Findings::
looks frail in no acute distress
skin-chr skin changes but no rash
speech clear, able to move all extremitties
neck supple, no JVD
[2024-04-07 11:33] LABS: Blood Urea Nitrogen 27 mg/dl (7-17); Calcium 10.1 mg/dl (8.4-10.2); Carbon Dioxide 27 mmol/L (22-30); Chloride 96 mmol/L (98-107); Estimated Creatinine Clearance 10 ml/min; Glucose 83 mg/dl (70-99); Potassium 4.1 mmol/L (3.5-5.1); Sodium 141 mmol/L (135-145); eGFR 10.18
--- NOTE | 2024-04-07 12:42 | W.PN.HOSP.TC ---
Today's Communication/Plan
-
Comfort Care
Assessment / Plan
Assessment / Plan
Physical Exam
General: Not in Acute Distress
HEENT: Normocephalic and Atraumatic
Respiratory: Clear to Auscultation Bilaterally
Cardiac: Regular Rhythm and S1/S2
GI: Soft, Nontender and Nondistended. Positive bowel sounds.
Skin: Warm. Dry.
Neuro: Awake, Alert and Oriented
Psych: Calm and Intact Judgement/Insight
Assessment/Plan
HPI: 73 years old female with history of right lower lobe wedge resection with benign pathology, ESRD on HD; presented with weeks of generalized fatigue, productive cough and hemoptysis.
#Right lower lobe pneumonia with mild hemoptysis, productive cough with hemoptysis, occasional right-sided back pain
#Hemoptysis resolved
#Bronchoscopy 04/03/2024-Dr. Swanson-valerie blood throughout right lower lobe airway, bloody plugs throughout right middle lobe and right mainstem removed, no visual evidence for active bleeding, sequential lavages of right lower lobe basilar segment
with valerie blood returning, no obvious endobronchial lesions however right lower lobe lateral basilar segment with abnormal appearing mucosa, nodular and edematous and erythematous, BAL, brushings and endobronchial mucosal biopsies were obtained,
culture sent
# R flank pain with new L liver mass
# R lumbar pain
# Right Lower Lobe Atelectasis
# Right lower lobe lung mass, contiguous with right liver mass
# Right Lower Lobe and Right Medial Lobe blood from bronchoscopy - valerie blood throughout the right lower lobe airway, bloody plugs throughout the right middle lobe, right mainstem
# CAD/PAD/prior CVA on [employer].
# PAD with left SFA angioplasty and stenting 2012
# h/o CABG 2002
# Ischemic cardiomyopathy with LVEF of 45% (decreased from 60 to 65%)
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
# Anemia of chronic disease.
# Polycystic kidney disease with bilateral nephrectomy 2003
# Failure to thrive with generalized fatigue
# Right thoracotomy with right lower lobe wedge resection 2018 with benign pathology.
# Chronic hypotension requiring midodrine.
# History of PMR currently not on steroids.
# History of CVA, status post angioplasty/stent at the left vertebral artery 2019 at [facility].
# Valvular disease with mild MR/moderate AI
# History of longstanding tobacco abuse, currently not smoking
# History of COVID-19 infection
-Patient's pathology result and poor prognosis was explained by myself and on-call oncologist team today.
-Patient acknowledged understanding of her pathology results and poor prognosis in the setting of her comorbid conditions and she also understood that Comfort care meant stopping her dialysis sessions going forward and also stopping all of her
routine, mun-cjcrewu-vpuxubra medications.
-Patient clearly stated she would like to have Comfort Care and Hospice started today for her.
-Start Comfort Care and Hospice
Anticipated Discharge: > 48 hours
Subjective/Interval History
-
Date of Service: April 07, 2024
Patient was seen and examined. She reported pain is better controlled today.
Objective Data
-
Labs:
Laboratory Results
04/07/24
09:43
WBC 8.6
Hgb 9.9 L
Hct 31.2 L
Plt Count 223
Sodium 141
Potassium 4.1
Chloride 96 L
Carbon Dioxide 27
BUN 27 H
Creatinine 4.4 H*
Glucose 83
Calcium 10.1
Vital Signs:
Vital Signs
Temp Pulse Resp BP Pulse Ox
97.7 F 72 16 130/53 92
04/07/24 07:30 04/07/24 07:30 04/07/24 07:30 04/07/24 08:46 04/07/24 07:30
I&O
04/06/24 04/07/24 04/08/24
06:59 06:59 06:59
Intake Total 480 / 480 1839
Balance 480 / 480 1839
[2024-04-07] MEDS: EMLA CREAM TOPICAL (12:47)
--- NOTE | 2024-04-07 12:48 | CM ---
Reviewed the chart notes. Per attending, patient ready for hospice, no further treatment. Consult received and sent to Hospice for review. CM continues to be available to patient/family and is monitoring medical plan for needs at discharge.
Plan: Hospice.
[2024-04-07 15:40] VITALS: BP 153/76
[2024-04-07] MEDS: ROXICODONE 5 MG PO (19:48)
[2024-04-07 23:58] VITALS: BP 145/70
[2024-04-08 06:00] VITALS: BMI 18.2
[2024-04-08 07:20] VITALS: BP 168/80
[2024-04-08 07:20] LABS: Hematocrit 30.6 % (37.0-47.0); Hemoglobin 9.8 g/dL (12.0-16.0); Mean Corpuscular Hgb 29.3 pg (27.0-31.0); Mean Corpuscular Volume 91.6 fL (81.0-99.0); Mean Platelet Volume 11.3 fL (7.4-10.4); Platelet Count 244 10^3/uL (130-400); Red Blood Cell Count 3.34 10^6/uL (4.20-5.40); Red Cell Dist. Width 16.6 % (11.5-14.5); White Blood Cell Count 10.1 10^3/uL (4.8-10.8)
[2024-04-08 07:48] LABS: Blood Urea Nitrogen 36 mg/dl (7-17); Calcium 10.9 mg/dl (8.4-10.2); Carbon Dioxide 24 mmol/L (22-30); Chloride 99 mmol/L (98-107); Estimated Creatinine Clearance 9 ml/min; Glucose 87 mg/dl (70-99); Potassium 4.3 mmol/L (3.5-5.1); Sodium 142 mmol/L (135-145); eGFR 8.53
--- NOTE | 2024-04-08 09:23 | HOSPNOTE ---
Addendum entered by Deena Rachel RN 04/08/24 13:07:
Attending and Primary RN updated and in agreement.
Original Note:
Hospice continues to follow. Patient was placed on comfort measures yesterday. Upon review of records over the last 24 hours, patient has not had any unmanageable symptoms nor has needed iv medication for symptom management. At this time,
recommendation is to continue comfort care measures. Hospice will continue to follow and offer support. Patients friend Ruben states that they would use [facility] at patients time of passing. She also plans to come and stay with patient
while she is in the hospital as support. CM updated.
[2024-04-08] MEDS: MUCINEX 600 MG PO ×2 (09:38→19:40)
[2024-04-08] MEDS: LIDOCAINE 4% PATCH TOPICAL (09:38)
[2024-04-08] MEDS: ROXICODONE 2.5 MG PO ×3 (09:38→23:21)
[2024-04-08] MEDS: MIRALAX 17 GRAMS PO (09:51)
--- NOTE | 2024-04-08 12:12 | W.PN.UPDATE ---
Update Note
Progress Note Update
pt now comfort care
stopped HD
d/w pt
--- NOTE | 2024-04-08 12:54 | W.PN.HOSP.TC ---
Today's Communication/Plan
-
Continue Comfort Care
Assessment / Plan
Assessment / Plan
Physical Exam
General: Not in Acute Distress
HEENT: Normocephalic and Atraumatic
Respiratory: Clear to Auscultation Bilaterally
Cardiac: Regular Rhythm and S1/S2
GI: Soft, Nontender and Nondistended. Positive bowel sounds.
Skin: Warm. Dry.
Neuro: Awake, Alert and Oriented
Psych: Calm and Intact Judgement/Insight
Assessment/Plan
HPI: 73 years old female with history of right lower lobe wedge resection with benign pathology, ESRD on HD; presented with weeks of generalized fatigue, productive cough and hemoptysis.
#Right lower lobe pneumonia with mild hemoptysis, productive cough with hemoptysis, occasional right-sided back pain
#Hemoptysis resolved
#Bronchoscopy 04/03/2024-Dr. Swanson-valerie blood throughout right lower lobe airway, bloody plugs throughout right middle lobe and right mainstem removed, no visual evidence for active bleeding, sequential lavages of right lower lobe basilar segment
with valerie blood returning, no obvious endobronchial lesions however right lower lobe lateral basilar segment with abnormal appearing mucosa, nodular and edematous and erythematous, BAL, brushings and endobronchial mucosal biopsies were obtained,
culture sent
# R flank pain with new L liver mass
# R lumbar pain
# Right Lower Lobe Atelectasis
# Right lower lobe lung mass, contiguous with right liver mass
# Right Lower Lobe and Right Medial Lobe blood from bronchoscopy - valerie blood throughout the right lower lobe airway, bloody plugs throughout the right middle lobe, right mainstem
# CAD/PAD/prior CVA on [employer].
# PAD with left SFA angioplasty and stenting 2012
# h/o CABG 2002
# Ischemic cardiomyopathy with LVEF of 45% (decreased from 60 to 65%)
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
# Anemia of chronic disease.
# Polycystic kidney disease with bilateral nephrectomy 2003
# Failure to thrive with generalized fatigue
# Right thoracotomy with right lower lobe wedge resection 2018 with benign pathology.
# Chronic hypotension requiring midodrine.
# History of PMR currently not on steroids.
# History of CVA, status post angioplasty/stent at the left vertebral artery 2019 at [facility].
# Valvular disease with mild MR/moderate AI
# History of longstanding tobacco abuse, currently not smoking
# History of COVID-19 infection
-Patient's pathology result and poor prognosis was explained (on 04/07/24) by myself and on-call oncologist team.
-Patient acknowledged understanding of her pathology results and poor prognosis in the setting of her comorbid conditions and she also understood that Comfort care meant stopping her dialysis sessions going forward and also stopping all of her
routine, elh-odedsll-xghbmirt medications.
-Patient clearly stated she would like to have Comfort Care and Hospice started.
-Continue Comfort Care and Hospice.
Anticipated Discharge: > 48 hours
Subjective/Interval History
-
Date of Service: April 08, 2024
Patient was seen and examined. She reported that she is comfortable and denied any new significant symptoms or complaints.
Objective Data
-
Labs:
Laboratory Results
04/08/24
06:56
WBC 10.1
Hgb 9.8 L
Hct 30.6 L
Plt Count 244
Sodium 142
Potassium 4.3
Chloride 99
Carbon Dioxide 24
BUN 36 H
Creatinine 5.1 H*
Glucose 87
Calcium 10.9 H
Vital Signs:
Vital Signs
Temp Pulse Resp BP Pulse Ox
97.4 F 86 14 168/80 90
04/08/24 07:20 04/08/24 07:20 04/08/24 07:20 04/08/24 07:20 04/08/24 07:20
I&O
04/07/24 04/08/24 04/09/24
06:59 06:59 06:59
Intake Total 1839 1380 / 1380
Balance 1839 1380 / 1380
[2024-04-08] MEDS: ROXICODONE 5 MG PO ×3 (13:26→21:29)
[2024-04-08 19:12] VITALS: BP 140/85
[2024-04-09 07:45] VITALS: BP 136/74
[2024-04-09] MEDS: MUCINEX 600 MG PO ×2 (09:30→20:49)
[2024-04-09] MEDS: ROXICODONE 2.5 MG PO ×2 (09:30→16:33)
[2024-04-09] MEDS: MIRALAX 17 GRAMS PO (09:30)
[2024-04-09] MEDS: LIDOCAINE 4% PATCH TOPICAL (09:33)
--- NOTE | 2024-04-09 11:39 | HOSPNOTE ---
Hospice continues to follow. At this time recommendation is for patient to remain to comfort measures. Patient has no unmanageable symptoms nor requiring iv medication at this time. Attending, CM, and primary RN are in agreement. Hospice will
continue to follow and support patient and family.
--- NOTE | 2024-04-09 11:42 | W.PN.HOSP.TC ---
Today's Communication/Plan
-
Patient remains pain-free and comfortable today. Continue Comfort Care.
Assessment / Plan
Assessment / Plan
Physical Exam
General: Not in Acute Distress
HEENT: Normocephalic and Atraumatic
Respiratory: Clear to Auscultation Bilaterally
Cardiac: Regular Rhythm and S1/S2
GI: Soft, Nontender and Nondistended. Positive bowel sounds.
Skin: Warm. Dry.
Neuro: Awake, Alert and Oriented
Psych: Calm and Intact Judgement/Insight
Assessment/Plan
HPI: 73 years old female with history of right lower lobe wedge resection with benign pathology, ESRD on HD; presented with weeks of generalized fatigue, productive cough and hemoptysis.
#Right lower lobe pneumonia with mild hemoptysis, productive cough with hemoptysis, occasional right-sided back pain
#Hemoptysis resolved
#Bronchoscopy 04/03/2024-Dr. Swanson-valerie blood throughout right lower lobe airway, bloody plugs throughout right middle lobe and right mainstem removed, no visual evidence for active bleeding, sequential lavages of right lower lobe basilar segment
with valerie blood returning, no obvious endobronchial lesions however right lower lobe lateral basilar segment with abnormal appearing mucosa, nodular and edematous and erythematous, BAL, brushings and endobronchial mucosal biopsies were obtained,
culture sent
# R flank pain with new L liver mass
# R lumbar pain
# Right Lower Lobe Atelectasis
# Right lower lobe lung mass, contiguous with right liver mass
# Right Lower Lobe and Right Medial Lobe blood from bronchoscopy - valerie blood throughout the right lower lobe airway, bloody plugs throughout the right middle lobe, right mainstem
# CAD/PAD/prior CVA on [employer].
# PAD with left SFA angioplasty and stenting 2012
# h/o CABG 2002
# Ischemic cardiomyopathy with LVEF of 45% (decreased from 60 to 65%)
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
# Anemia of chronic disease.
# Polycystic kidney disease with bilateral nephrectomy 2003
# Failure to thrive with generalized fatigue
# Right thoracotomy with right lower lobe wedge resection 2018 with benign pathology.
# Chronic hypotension requiring midodrine.
# History of PMR currently not on steroids.
# History of CVA, status post angioplasty/stent at the left vertebral artery 2019 at [facility].
# Valvular disease with mild MR/moderate AI
# History of longstanding tobacco abuse, currently not smoking
# History of COVID-19 infection
-Patient's pathology result and poor prognosis was explained (on 04/07/24) by myself and on-call oncologist team.
-Patient acknowledged understanding of her pathology results and poor prognosis in the setting of her comorbid conditions and she also understood that Comfort care meant stopping her dialysis sessions going forward and also stopping all of her
routine, ocn-skzrlko-xestaagr medications.
-Patient clearly stated she would like to have Comfort Care and Hospice started.
-Patient remains pain-free and comfortable today. Continue Comfort Care.
Anticipated Discharge: > 48 hours
Subjective/Interval History
-
Date of Service: April 09, 2024
Patient was seen and examined. She reported no pain and was comfortable.
Objective Data
-
Vital Signs:
Vital Signs
Temp Pulse Resp BP Pulse Ox
97.8 F 76 18 136/74 90
04/09/24 07:45 04/09/24 07:45 04/09/24 07:45 04/09/24 07:45 04/09/24 07:45
I&O
04/08/24 04/09/24 04/10/24
06:59 06:59 06:59
Intake Total 1380 / 1380 1320 / 1320
Balance 1380 / 1380 1320 / 1320
--- NOTE | 2024-04-09 11:50 | CM ---
Case management following for discharge planning
Chart reviewed
Remains on comfort care
[facility] cont to follow
CM remains available to family/pt as needed
Plan - cont comfort care
[2024-04-09] MEDS: ROXICODONE 5 MG PO ×2 (14:13→20:49)
[2024-04-09] MEDS: ZOFRAN 4 MG IV (14:20)
--- NOTE | 2024-04-09 15:49 | CHAP ---
Jaycee was awake and alert - had a visitor present. She said she's grateful for daily visits from her ybgfhy-hu-eir, Lety, a volunteer circular shear operator. Emotional and spiritual support provided, along with a prayer blanket.
[2024-04-09 19:15] VITALS: BP 119/58
[2024-04-09] MEDS: DILAUDID 0.2 MG IV (21:24)
[2024-04-10] MEDS: ROXICODONE PO (00:25)
[2024-04-10 07:30] VITALS: BP 130/66
--- NOTE | 2024-04-10 09:22 | CM ---
Addendum entered by Sadaf Longoria RN 04/10/24 15:21:
Referral sent to [facility] for hospice placement.
Original Note:
Reviewed the chart notes. Patient has discontinued HD treatments and is now on comfort care. CM continues to be available to patient/family.
Plan: Comfort care.
[2024-04-10] MEDS: ROXICODONE 2.5 MG PO ×2 (10:30→16:22)
[2024-04-10] MEDS: LIDOCAINE 4% PATCH TOPICAL (10:30)
[2024-04-10] MEDS: MIRALAX 17 GRAMS PO (10:30)
[2024-04-10] MEDS: MUCINEX 600 MG PO ×2 (10:37→21:15)
--- NOTE | 2024-04-10 12:00 | W.PN.HOSP.TC ---
Addendum entered and electronically signed by Jessica Carrasquillo MD 04/10/24 16:02:
# Moderate protein malnutrition
Original Note:
Today's Communication/Plan
-
see A/P
Assessment / Plan
Assessment / Plan
HPI: 73 years old female with history of right lower lobe wedge resection with benign pathology, ESRD on HD; presented with weeks of generalized fatigue, productive cough and hemoptysis.
A/P:
#Right lower lobe pneumonia with mild hemoptysis, productive cough with hemoptysis, occasional right-sided back pain
#Hemoptysis resolved
#Bronchoscopy 04/03/2024-Dr. Swanson-valerie blood throughout right lower lobe airway, bloody plugs throughout right middle lobe and right mainstem removed, no visual evidence for active bleeding, sequential lavages of right lower lobe basilar segment
with valerie blood returning, no obvious endobronchial lesions however right lower lobe lateral basilar segment with abnormal appearing mucosa, nodular and edematous and erythematous, BAL, brushings and endobronchial mucosal biopsies were obtained,
culture sent
# R flank pain with new L liver mass
# R lumbar pain
# Right Lower Lobe Atelectasis
# Right lower lobe lung mass, contiguous with right liver mass
# Right Lower Lobe and Right Medial Lobe blood from bronchoscopy - valerie blood throughout the right lower lobe airway, bloody plugs throughout the right middle lobe, right mainstem
# CAD/PAD/prior CVA on [employer].
# PAD with left SFA angioplasty and stenting 2012
# h/o CABG 2002
# Ischemic cardiomyopathy with LVEF of 45% (decreased from 60 to 65%)
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
# Anemia of chronic disease.
# Polycystic kidney disease with bilateral nephrectomy 2003
# Failure to thrive with generalized fatigue
# Right thoracotomy with right lower lobe wedge resection 2018 with benign pathology.
# Chronic hypotension requiring midodrine.
# History of PMR currently not on steroids.
# History of CVA, status post angioplasty[facility]
# Valvular disease with mild MR/moderate AI
# History of longstanding tobacco abuse, currently not smoking
# History of COVID-19 infection
Patient's pathology result and poor prognosis was explained (on 04/07/24) by myself and on-call oncologist team.
Patient acknowledged understanding of her pathology results and poor prognosis in the setting of her comorbid conditions and she also understood that Comfort care meant stopping her dialysis sessions going forward and also stopping all of her
routine, fbi-vfnktdn-dsjqrmhw medications.
Patient clearly stated she would like to have Comfort Care and Hospice started.
Patient remains pain-free and comfortable today.
Continue Comfort Care.
Anticipated Discharge: 24 - 48 hours
Subjective/Interval History
-
Date of Service: April 10, 2024
Objective Data
-
Vital Signs:
Vital Signs
Temp Pulse Resp BP Pulse Ox
37.1 C 76 16 130/66 89
04/10/24 07:30 04/10/24 07:30 04/10/24 07:30 04/10/24 07:30 04/10/24 07:30
I&O
04/09/24 04/10/24 04/11/24
06:59 06:59 06:59
Intake Total 1320 / 1320 530 / 530
Balance 1320 / 1320 530 / 530
Review of Systems
-
All other systems: Reviewed and negative
Physical Exam
-
General: Well Developed, No Apparent Distress, Comfortable, Conversant and Appears Chronically Ill
HEENT: Normocephalic and Atraumatic; Negative Oxygen
Respiratory: Clear to Auscultation and Non Labored Respirations; Negative Accessory Resp Muscle Use
Cardiac: Regular Rhythm and S1/S2; Negative Murmur
GI: Soft, Nontender and Nondistended
Skin: Warm
Neuro: Awake, Alert and Oriented
Psych: Calm and Intact Judgement/Insight
Data Reviewed
-
CT Scan: Report Reviewed by me and Discussed with Patient
Labs: Labs Reviewed by me
[2024-04-10] MEDS: DILAUDID 0.2 MG IV ×2 (12:43→21:18)
--- NOTE | 2024-04-10 15:40 | PN.CDI ---
CDI
- -
CDI:
Physician Documentation Request
Admit Date: 03/24/24 14:49
Dear Doctor Neida,
Please review the following and provide your response in the progress notes.
Clinical Indicators:
Pt admitted with pneumonia.
04/07 Registered Dietitian note: '..Due to intakes of estimated energy requirement< 75% for greater than or equal to month and observation of moderate fat/muscle loss of orbitals, temples, clavicle, pt meets criteria for moderate protein/calorie
malnutrition( ASPEN/AND guidelines, chronic illness)...'
Based on the above information and your assessment, which of the following most accurately represents the patient's nutritional status?
Moderate protein malnutrition
Underweight without malnutrition
No nutritional deficiency
Other (please specify)
[place] Criteria (ACP Hospitalist 2017)
2 or more criteria must be present for either
non severe or severe malnutrition
Note that the criteria differs related to the
presence of an acute or chronic illness
Chronic Illness
Energy Intake Non Severe: <75% for >1 month
Severe: <75% for >1 month
Weight Loss Non Severe: 5% over 1 month
7.5% over 3 months
10% over 6 months
20% over 1 year
Severe: >5% over 1 month
>7.5% over 3 months
>10% over 6 months
>20% over 1 year
Body Fat Non Severe: Mild Loss
Severe: Severe Loss
Muscle Mass Non Severe: Mild Loss
Severe: Severe Loss
Additional criteria that can be used to Determine if Mild or Moderate Malnutrition (Merck Manual 2018)
Use of terms such as suspected, likely, concern for, or probable (associated with a specific diagnosis that is being evaluated, monitored, or treated as if it exists) are acceptable and can be coded in the inpatient setting, when documented at the
time of discharge.
Thank you,
Whitley Vega RN, BSN
CDI Specialist
Available via [employer]
Please use your independent medical judgment in providing your response.
--- NOTE | 2024-04-10 15:47 | HOSPNOTE ---
Spoke with case management, a referral was sent to the NH. I will continue to monitor for inpatient hospice. At this time patient will remain on comfort.
--- NOTE | 2024-04-10 16:50 | PTCARENOTE ---
Patient resting comfortably at present. Friend at bedside. Patient does not want to be turned at present, she will turn when she has to void. patient tolerating PO clears and small amount of noodles.
[2024-04-10 19:33] VITALS: BP 114/56
[2024-04-11] MEDS: ROXICODONE PO (00:52)
[2024-04-11 07:30] VITALS: BP 142/70
[2024-04-11] MEDS: MUCINEX 600 MG PO ×2 (07:46→21:10)
[2024-04-11] MEDS: ROXICODONE 2.5 MG PO ×2 (07:46→15:30)
[2024-04-11] MEDS: LIDOCAINE 4% PATCH TOPICAL (08:03)
[2024-04-11] MEDS: ZOFRAN 4 MG IV (08:07)
--- NOTE | 2024-04-11 09:22 | W.PN.HOSP.TC ---
Today's Communication/Plan
-
see A/P
Assessment / Plan
Assessment / Plan
HPI: 73 years old female with history of right lower lobe wedge resection with benign pathology, ESRD on HD; presented with weeks of generalized fatigue, productive cough and hemoptysis.
A/P:
#Right lower lobe pneumonia with mild hemoptysis, productive cough with hemoptysis, occasional right-sided back pain
#Hemoptysis resolved
#Bronchoscopy 04/03/2024-Dr. Swanson-valerie blood throughout right lower lobe airway, bloody plugs throughout right middle lobe and right mainstem removed, no visual evidence for active bleeding, sequential lavages of right lower lobe basilar segment
with valerie blood returning, no obvious endobronchial lesions however right lower lobe lateral basilar segment with abnormal appearing mucosa, nodular and edematous and erythematous, BAL, brushings and endobronchial mucosal biopsies were obtained,
culture sent
# R flank pain with new L liver mass
# R lumbar pain
# Right Lower Lobe Atelectasis
# Right lower lobe lung mass, contiguous with right liver mass
# Right Lower Lobe and Right Medial Lobe blood from bronchoscopy - valerie blood throughout the right lower lobe airway, bloody plugs throughout the right middle lobe, right mainstem
# CAD/PAD/prior CVA on [employer].
# PAD with left SFA angioplasty and stenting 2012
# h/o CABG 2002
# Ischemic cardiomyopathy with LVEF of 45% (decreased from 60 to 65%)
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
# Anemia of chronic disease.
# Polycystic kidney disease with bilateral nephrectomy 2003
# Failure to thrive with generalized fatigue
# Right thoracotomy with right lower lobe wedge resection 2017 with benign pathology.
# Chronic hypotension requiring midodrine.
# History of PMR currently not on steroids.
# History of CVA, status post angioplasty/stent at the left vertebral artery [facility] at [facility]
# Valvular disease with mild MR/moderate AI
# History of longstanding tobacco abuse, currently not smoking
# History of COVID-19 infection
Patient's pathology result and poor prognosis was explained (on 04/07/24) by myself and on-call oncologist team.
Patient acknowledged understanding of her pathology results and poor prognosis in the setting of her comorbid conditions and she also understood that Comfort care meant stopping her dialysis sessions going forward and also stopping all of her
routine, hoy-rqufmxv-icupcrzi medications.
Patient clearly stated she would like to have Comfort Care and Hospice started.
Patient remains pain-free and comfortable today.
Continue Comfort Care.
Anticipated Discharge: 24 - 48 hours
Subjective/Interval History
-
Date of Service: April 11, 2024
Objective Data
-
Vital Signs:
Vital Signs
Temp Pulse Resp BP Pulse Ox
36.9 C 90 16 142/70 88
04/11/24 07:30 04/11/24 07:30 04/11/24 07:30 04/11/24 07:30 04/11/24 07:30
I&O
04/10/24 04/11/24 04/12/24
06:59 06:59 06:59
Intake Total 530 / 530 340 / 340
Balance 530 / 530 340 / 340
Review of Systems
-
All other systems: Reviewed and negative
Physical Exam
-
General: Well Developed, No Apparent Distress, Comfortable, Conversant and Appears Chronically Ill
HEENT: Normocephalic and Atraumatic; Negative Oxygen
Respiratory: Clear to Auscultation and Non Labored Respirations; Negative Accessory Resp Muscle Use
Cardiac: Regular Rhythm and S1/S2; Negative Murmur
GI: Soft, Nontender and Nondistended
Skin: Warm
Neuro: Awake, Alert and Oriented
Psych: Calm and Intact Judgement/Insight
Data Reviewed
-
CT Scan: Report Reviewed by me and Discussed with Patient
Labs: Labs Reviewed by me
--- NOTE | 2024-04-11 11:14 | CM ---
Reviewed the chart notes. Referral sent to [facility] [address] for possible placement, though doubt bed available.
Plan: Comfort care.
[2024-04-11] MEDS: DILAUDID 0.2 MG IV ×2 (12:43→18:19)
[2024-04-11] MEDS: MIRALAX PO (12:53)
[2024-04-11] MEDS: MYCOSTATIN ORAL SUSPENSION 5 ML PO ×3 (15:30→21:11)
[2024-04-11 21:17] VITALS: BP 150/79
[2024-04-11 23:16] VITALS: BP 140/63
[2024-04-12] MEDS: ROXICODONE 2.5 MG PO ×4 (00:45→23:50)
--- NOTE | 2024-04-12 04:22 | DOWNTIME ---
There was a [employer] Downtime on 04/12/2024 from 0100 to 04/12/2024 at 0300. Downtime documentation of patient's care, including medication administrations, has been reconciled in the electronic record per guidelines. Refer to the
patient's paper chart under the miscellaneous tab to see printed paper medication records and downtime forms.
[2024-04-12] MEDS: ROXICODONE 5 MG PO (06:07)
[2024-04-12] MEDS: MIRALAX PO (09:01)
[2024-04-12] MEDS: LIDOCAINE 4% PATCH TOPICAL (09:01)
[2024-04-12] MEDS: MUCINEX 600 MG PO ×2 (09:02→20:49)
[2024-04-12] MEDS: MYCOSTATIN ORAL SUSPENSION 5 ML PO ×4 (09:02→20:49)
--- NOTE | 2024-04-12 10:08 | HOSPNOTE ---
Hospice is following. After review, patient does not meet inpatient criteria at this time. Recommend to continue with comfort measures. Attending and CM updated. Hospice will continue to assess daily and follow.
--- NOTE | 2024-04-12 10:14 | CM ---
Reviewed the chart notes. Patient remains on comfort care. CM continues to be available to patient/family.
Plan: Comfort care.
--- NOTE | 2024-04-12 10:58 | W.PN.HOSP.TC ---
Today's Communication/Plan
-
see A/P
Assessment / Plan
Assessment / Plan
HPI: 73 years old female with history of right lower lobe wedge resection with benign pathology, ESRD on HD; presented with weeks of generalized fatigue, productive cough and hemoptysis.
A/P:
#Right lower lobe pneumonia with mild hemoptysis, productive cough with hemoptysis, occasional right-sided back pain
#Hemoptysis resolved
#Bronchoscopy 04/03/2024-Dr. Swanson-valerie blood throughout right lower lobe airway, bloody plugs throughout right middle lobe and right mainstem removed, no visual evidence for active bleeding, sequential lavages of right lower lobe basilar segment
with valerie blood returning, no obvious endobronchial lesions however right lower lobe lateral basilar segment with abnormal appearing mucosa, nodular and edematous and erythematous, BAL, brushings and endobronchial mucosal biopsies were obtained,
culture sent
# R flank pain with new L liver mass
# R lumbar pain
# Right Lower Lobe Atelectasis
# Right lower lobe lung mass, contiguous with right liver mass
# Right Lower Lobe and Right Medial Lobe blood from bronchoscopy - valerie blood throughout the right lower lobe airway, bloody plugs throughout the right middle lobe, right mainstem
# CAD/PAD/prior CVA on D[employer]T [employer] N[employer]SE.
# PAD with left SFA angioplasty and stenting 2012
# h/o CABG 2002
# Ischemic cardiomyopathy with LVEF of 45% (decreased from 60 to 65%)
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
# Anemia of chronic disease.
# Polycystic kidney disease with bilateral nephrectomy 2003
# Failure to thrive with generalized fatigue
# Right thoracotomy with right lower lobe wedge resection 2017 with benign pathology.
# Chronic hypotension requiring midodrine.
# History of PMR currently not on steroids.
# History of CVA, status post angioplasty/stent at the left vertebral artery 2019 at [facility].
# Valvular disease with mild MR/moderate AI
# History of longstanding tobacco abuse, currently not smoking
# History of COVID-19 infection
Patient's pathology result and poor prognosis was explained (on 04/07/24) by myself and on-call oncologist team.
Patient acknowledged understanding of her pathology results and poor prognosis in the setting of her comorbid conditions and she also understood that Comfort care meant stopping her dialysis sessions going forward and also stopping all of her
routine, ard-odptckj-jsbytxzc medications.
Patient clearly stated she would like to have Comfort Care and Hospice started.
Patient remains pain-free and comfortable today.
Continue Comfort Care.
Anticipated Discharge: 24 - 48 hours
Subjective/Interval History
-
Date of Service: April 12, 2024
Objective Data
-
Vital Signs:
Vital Signs
Temp Pulse Resp BP Pulse Ox
37.2 C 76 14 140/63 87
04/11/24 23:16 04/11/24 23:16 04/11/24 23:16 04/11/24 23:16 04/11/24 23:16
I&O
04/11/24 04/12/24 04/13/24
06:59 06:59 06:59
Intake Total 340 / 340 1080 / 1080
Balance 340 / 340 1080 / 1080
Review of Systems
-
All other systems: Reviewed and negative
Physical Exam
-
General: Well Developed, No Apparent Distress, Comfortable, Conversant and Appears Chronically Ill
HEENT: Normocephalic and Atraumatic; Negative Oxygen
Respiratory: Clear to Auscultation and Non Labored Respirations; Negative Accessory Resp Muscle Use
Cardiac: Regular Rhythm and S1/S2; Negative Murmur
GI: Soft, Nontender and Nondistended
Skin: Warm
Neuro: Awake, Alert and Oriented
Psych: Calm and Intact Judgement/Insight
Data Reviewed
-
CT Scan: Report Reviewed by me and Discussed with Patient
Labs: Labs Reviewed by me
[2024-04-12] MEDS: DILAUDID 0.2 MG IV (12:27)
[2024-04-12 15:20] VITALS: BP 140/62
[2024-04-12 19:24] VITALS: BP 111/81
[2024-04-12 23:09] VITALS: BP 132/62
[2024-04-13 07:51] VITALS: BP 134/65
[2024-04-13] MEDS: LIDOCAINE 4% PATCH TOPICAL (08:48)
[2024-04-13] MEDS: MIRALAX PO (08:49)
[2024-04-13] MEDS: ROXICODONE 2.5 MG PO ×2 (08:51→17:05)
[2024-04-13] MEDS: MYCOSTATIN ORAL SUSPENSION 5 ML PO ×2 (08:51→12:09)
[2024-04-13] MEDS: MUCINEX 600 MG PO (08:51)
--- NOTE | 2024-04-13 10:43 | W.PN.HOSP.TC ---
Today's Communication/Plan
-
cont comfort measures
Assessment / Plan
Assessment / Plan
HPI: 73 years old female with history of right lower lobe wedge resection with benign pathology, ESRD on HD; presented with weeks of generalized fatigue, productive cough and hemoptysis.
A/P:
#Right lower lobe pneumonia with mild hemoptysis, productive cough with hemoptysis, occasional right-sided back pain
#Hemoptysis resolved
#Bronchoscopy 04/03/2024-Dr. Swanson-valerie blood throughout right lower lobe airway, bloody plugs throughout right middle lobe and right mainstem removed, no visual evidence for active bleeding, sequential lavages of right lower lobe basilar segment
with valerie blood returning, no obvious endobronchial lesions however right lower lobe lateral basilar segment with abnormal appearing mucosa, nodular and edematous and erythematous, BAL, brushings and endobronchial mucosal biopsies were obtained,
culture sent
# R flank pain with new L liver mass
# R lumbar pain
# Right Lower Lobe Atelectasis
# Right lower lobe lung mass, contiguous with right liver mass
# Right Lower Lobe and Right Medial Lobe blood from bronchoscopy - valerie blood throughout the right lower lobe airway, bloody plugs throughout the right middle lobe, right mainstem
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
# PAD with left SFA angioplasty and stenting 2012
# h/o CABG 2002
# Ischemic cardiomyopathy with LVEF of 45% (decreased from 60 to 65%)
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
# Anemia of chronic disease.
# Polycystic kidney disease with bilateral nephrectomy 2003
# Failure to thrive with generalized fatigue
# Right thoracotomy with right lower lobe wedge resection 2017 with benign pathology.
# Chronic hypotension requiring midodrine.
# History of PMR currently not on steroids.
# History of CVA, status post angioplasty/stent at the left vertebral artery 2019 at [facility].
# Valvular disease with mild MR/moderate AI
# History of longstanding tobacco abuse, currently not smoking
# History of COVID-19 infection
Patient's pathology result and poor prognosis was explained (on 04/07/24) by myself and on-call oncologist team.
Patient acknowledged understanding of her pathology results and poor prognosis in the setting of her comorbid conditions and she also understood that Comfort care meant stopping her dialysis sessions going forward and also stopping all of her
routine, jgk-vzzwoep-zgadjpkh medications.
Patient clearly stated she would like to have [facility] and Hospice started.
Patient remains pain-free and comfortable today.
Continue Comfort Care.
Anticipated Discharge: 24 - 48 hours
Subjective/Interval History
-
Date of Service: April 13, 2024
Objective Data
-
Vital Signs:
Vital Signs
Temp Pulse Resp BP Pulse Ox
37.0 C 79 16 134/65 89
04/13/24 07:51 04/13/24 07:51 04/13/24 07:51 04/13/24 07:51 04/13/24 07:51
I&O
04/12/24 04/13/24 04/14/24
06:59 06:59 06:59
Intake Total 1080 / 1080 720 / 720
Balance 1080 / 1080 720 / 720
Review of Systems
-
All other systems: Reviewed and negative
Physical Exam
-
General: Well Developed, No Apparent Distress, Comfortable, Conversant and Appears Chronically Ill
HEENT: Normocephalic and Atraumatic; Negative Oxygen
Respiratory: Clear to Auscultation and Non Labored Respirations; Negative Accessory Resp Muscle Use
Cardiac: Regular Rhythm and S1/S2; Negative Murmur
GI: Soft, Nontender and Nondistended
Skin: Warm
Neuro: Awake, Alert and Oriented
Psych: Calm and Intact Judgement/Insight
--- NOTE | 2024-04-13 11:15 | CM ---
Reviewed the chart notes. Patient continues on comfort measures. CM continues to be available to patient/family.
Plan: Continues with comfort care.
--- NOTE | 2024-04-13 11:40 | HOSPNOTE ---
Addendum entered by Deena Rachel RN 04/13/24 16:59:
Asked to speak to patient in person regarding hospice. I met with patient. She wanted to know if she was going to remain in the hospital on hospice. Reviewed the requirements for inpatient hospice. Reviewed that she is presently on comfort care.
Reviewed the difference and similarities. She stated that she is not able to go home as there is no one to care for her. She stated that she is not sure if she would qualify for [place] and or [facility] benefits. I reviewed that at this moment she will
remain on comfort. Reviewed goals of care focused on comfort. Reviewed medications available to her upon request. Reviewed to eat and drink as she desires. Spoke with attending and CM. Attending feels patient could go to [facility] on hospice. Relayed to CM
and CM is working with [facility] to see what is offered. Asked both to please notify patient if discharging becomes activated. Patient has two close friends who are bedside from out of state but they are not able to care for patient in the home setting.
She does not have any family. Update provided to primary RN. Hospice will continue to follow and assess daily for inpatient hospice appropriate.
Original Note:
Hospice is following. After review, patient does not meet inpatient criteria at this time. Recommend to continue with comfort measures. Attending and CM updated. Hospice will continue to assess daily and follow.
[2024-04-13] MEDS: ROXICODONE 5 MG PO (12:09)
[2024-04-13] MEDS: DILAUDID 0.2 MG IV ×2 (13:35→17:17)
[2024-04-13] MEDS: MYCOSTATIN ORAL SUSPENSION PO ×3 (17:05→23:26)
[2024-04-13] MEDS: ROBINUL 0.2 MG IV (17:16)
--- NOTE | 2024-04-13 18:58 | PTCARENOTE ---
1705 med pass gave pt 2.5 mg of oxycodone . pt started coughing and brought up mucous and pill. Was unable to take due to increase secretions. Pt refused the mycostatin. PRN dose of iv dilauded given. Dr. Carrasquillo notified.
[2024-04-13 19:47] VITALS: BP 140/69
[2024-04-13] MEDS: ROXICODONE PO (23:26)
[2024-04-14 07:25] VITALS: BP 121/63
[2024-04-14] MEDS: LIDOCAINE 4% PATCH 1 PATCH TOPICAL (09:34)
[2024-04-14] MEDS: MYCOSTATIN ORAL SUSPENSION 5 ML PO (09:34)
[2024-04-14] MEDS: MIRALAX 17 GRAMS PO (09:34)
[2024-04-14] MEDS: ROXICODONE PO ×2 (09:35→15:59)
[2024-04-14] MEDS: ROXICODONE 5 MG PO ×2 (09:35→13:03)
--- NOTE | 2024-04-14 10:49 | W.PN.HOSP.TC ---
Today's Communication/Plan
-
see A/P
Assessment / Plan
Assessment / Plan
HPI: 73 years old female with history of right lower lobe wedge resection with benign pathology, ESRD on HD; presented with weeks of generalized fatigue, productive cough and hemoptysis.
A/P:
#Right lower lobe pneumonia with mild hemoptysis, productive cough with hemoptysis, occasional right-sided back pain
#Hemoptysis resolved
#Bronchoscopy 04/03/2024-Dr. Swanson-valerie blood throughout right lower lobe airway, bloody plugs throughout right middle lobe and right mainstem removed, no visual evidence for active bleeding, sequential lavages of right lower lobe basilar segment
with valerie blood returning, no obvious endobronchial lesions however right lower lobe lateral basilar segment with abnormal appearing mucosa, nodular and edematous and erythematous, BAL, brushings and endobronchial mucosal biopsies were obtained,
culture sent
# R flank pain with new L liver mass
# R lumbar pain
# Right Lower Lobe Atelectasis
# Right lower lobe lung mass, contiguous with right liver mass
# Right Lower Lobe and Right Medial Lobe blood from bronchoscopy - valerie blood throughout the right lower lobe airway, bloody plugs throughout the right middle lobe, right mainstem
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
# PAD with left SFA angioplasty and stenting 2012
# h/o CABG 2002
# Ischemic cardiomyopathy with LVEF of 45% (decreased from 60 to 65%)
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
# Anemia of chronic disease.
# Polycystic kidney disease with bilateral nephrectomy 2003
# Failure to thrive with generalized fatigue
# Right thoracotomy with right lower lobe wedge resection 2017 with benign pathology.
# Chronic hypotension requiring midodrine.
# History of PMR currently not on steroids.
# History of CVA, status post angioplasty/stent at the left vertebral artery 2019 at [facility].
# Valvular disease with mild MR/moderate AI
# History of longstanding tobacco abuse, currently not smoking
# History of COVID-19 infection
Patient's pathology result and poor prognosis was explained (on 04/07/24) by myself and on-call oncologist team.
Patient acknowledged understanding of her pathology results and poor prognosis in the setting of her comorbid conditions and she also understood that Comfort care meant stopping her dialysis sessions going forward and also stopping all of her
routine, odh-xisdhgz-epycgxut medications.
Patient clearly stated she would like to have [facility] and Hospice started.
Patient remains pain-free and comfortable today.
Continue Comfort Care.
DW CM
Anticipated Discharge: 24 - 48 hours
Subjective/Interval History
-
Date of Service: April 14, 2024
Objective Data
-
Vital Signs:
Vital Signs
Temp Pulse Resp BP Pulse Ox
36.7 C 77 18 121/63 93
04/14/24 07:25 04/14/24 07:25 04/14/24 07:25 04/14/24 07:25 04/14/24 07:25
I&O
04/13/24 04/14/24 04/15/24
06:59 06:59 06:59
Intake Total 720 / 720 720 / 720
Output Total 0 / 0
Balance 720 / 720 720 / 720
Review of Systems
-
All other systems: Reviewed and negative
Physical Exam
-
General: Well Developed, No Apparent Distress, Comfortable, Conversant and Appears Chronically Ill
HEENT: Normocephalic and Atraumatic; Negative Oxygen
Respiratory: Clear to Auscultation and Non Labored Respirations; Negative Accessory Resp Muscle Use
Cardiac: Regular Rhythm and S1/S2; Negative Murmur
GI: Soft, Nontender and Nondistended
Skin: Warm
Neuro: Awake, Alert and Oriented
Psych: Calm and Intact Judgement/Insight
Data Reviewed
-
CT Scan: Report Reviewed by me and Discussed with Patient
Labs: Labs Reviewed by me
[2024-04-14] MEDS: MYCOSTATIN ORAL SUSPENSION PO ×3 (11:37→22:24)
[2024-04-14] MEDS: DILAUDID 0.2 MG IV ×2 (12:02→15:56)
--- NOTE | 2024-04-14 12:51 | HOSPNOTE ---
Spoke with patient and explained about criteria about staying here on hospice services. The patient is using pain medications and seems very anxious. I asked the nurse to please medicate. Spoke at length with case management and referrals will be
sent to SNF for placement and with hospice services. We will continue to follow daily.
[2024-04-14] MEDS: ATIVAN 0.5 MG PO (13:03)
--- NOTE | 2024-04-14 13:46 | CM ---
Reviewed the chart notes. Patient continues on comfort measures. CM continues to be available to patient/family.
Plan: Continues with comfort care.
[2024-04-14 19:00] VITALS: BP 91/57
[2024-04-14] MEDS: ROXICODONE 2.5 MG PO (23:33)
[2024-04-15 07:25] VITALS: BP 129/68
[2024-04-15] MEDS: ROXICODONE 2.5 MG PO ×2 (08:55→16:30)
[2024-04-15] MEDS: LIDOCAINE 4% PATCH TOPICAL ×2 (08:56→09:01)
[2024-04-15] MEDS: MYCOSTATIN ORAL SUSPENSION 5 ML PO ×2 (08:56→16:30)
[2024-04-15] MEDS: MIRALAX PO (08:57)
--- NOTE | 2024-04-15 11:05 | W.PN.HOSP.TC ---
Today's Communication/Plan
-
see A/P
Assessment / Plan
Assessment / Plan
HPI: 73 years old female with history of right lower lobe wedge resection with benign pathology, ESRD on HD; presented with weeks of generalized fatigue, productive cough and hemoptysis.
A/P:
# Right lower lobe pneumonia with mild hemoptysis, productive cough with hemoptysis, occasional right-sided back pain
# Hemoptysis resolved
# Bronchoscopy 04/03/2024-Dr. Swanson-valerie blood throughout right lower lobe airway, bloody plugs throughout right middle lobe and right mainstem removed, no visual evidence for active bleeding, sequential lavages of right lower lobe basilar segment
with valerie blood returning, no obvious endobronchial lesions however right lower lobe lateral basilar segment with abnormal appearing mucosa, nodular and edematous and erythematous, BAL, brushings and endobronchial mucosal biopsies were obtained,
culture sent
# R flank pain with new L liver mass
# R lumbar pain
# Right Lower Lobe Atelectasis
# Right lower lobe lung mass, contiguous with right liver mass
# Right Lower Lobe and Right Medial Lobe blood from bronchoscopy - valerie blood throughout the right lower lobe airway, bloody plugs throughout the right middle lobe, right mainstem
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
# PAD with left SFA angioplasty and stenting 2012
# h/o CABG 2002
# Ischemic cardiomyopathy with LVEF of 45% (decreased from 60 to 65%)
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
# Anemia of chronic disease.
# Polycystic kidney disease with bilateral nephrectomy 2003
# Failure to thrive with generalized fatigue
# Right thoracotomy with right lower lobe wedge resection 2017 with benign pathology.
# Chronic hypotension requiring midodrine.
# History of PMR currently not on steroids.
# History of CVA, status post angioplasty/stent at the left vertebral artery 2019 at [facility].
# Valvular disease with mild MR/moderate AI
# History of longstanding tobacco abuse, currently not smoking
# History of COVID-19 infection
Patient's pathology result and poor prognosis was explained (on 04/07/24)
Patient acknowledged understanding of her pathology results and poor prognosis in the setting of her comorbid conditions and she also understood that Comfort care meant stopping her dialysis sessions going forward and also stopping all of her
routine, tak-ufmmknl-kbodntqa medications.
Patient clearly stated she would like to have [facility] and Hospice started.
Patient remains pain-free and comfortable today.
Continue Comfort Care.
Anticipated Discharge: 24 - 48 hours
Subjective/Interval History
-
Date of Service: April 15, 2024
Objective Data
-
Vital Signs:
Vital Signs
Temp Pulse Resp BP Pulse Ox
36.6 C 83 16 129/68 92
04/15/24 07:25 04/15/24 07:25 04/15/24 07:25 04/15/24 07:25 04/15/24 07:25
I&O
04/14/24 04/15/24 04/16/24
06:59 06:59 06:59
Intake Total 720 / 720 360 / 360
Output Total 0 / 0
Balance 720 / 720 360 / 360
Review of Systems
-
All other systems: Reviewed and negative
Physical Exam
-
General: Well Developed, No Apparent Distress, Comfortable, Conversant and Appears Chronically Ill
HEENT: Normocephalic and Atraumatic; Negative Oxygen
Respiratory: Clear to Auscultation and Non Labored Respirations; Negative Accessory Resp Muscle Use
Cardiac: Regular Rhythm and S1/S2; Negative Murmur
GI: Soft, Nontender and Nondistended
Skin: Warm
Neuro: Awake, Alert and Oriented
Psych: Calm and Intact Judgement/Insight
Data Reviewed
-
CT Scan: Report Reviewed by me and Discussed with Patient
Labs: Labs Reviewed by me
[2024-04-15] MEDS: DILAUDID 0.2 MG IV ×2 (11:13→21:18)
[2024-04-15] MEDS: MYCOSTATIN ORAL SUSPENSION PO ×2 (13:36→21:04)
[2024-04-15] MEDS: FLUSH (NSS) 2 FLUSH IV (21:19)
[2024-04-15 23:42] VITALS: BP 118/65
[2024-04-16] MEDS: ROXICODONE 2.5 MG PO ×3 (00:14→16:59)
[2024-04-16 07:30] VITALS: BP 119/39
[2024-04-16] MEDS: LIDOCAINE 4% PATCH TOPICAL (08:41)
[2024-04-16] MEDS: MIRALAX PO (08:42)
[2024-04-16] MEDS: MYCOSTATIN ORAL SUSPENSION 5 ML PO ×3 (08:42→21:55)
[2024-04-16] MEDS: DILAUDID 0.2 MG IV (11:12)
--- NOTE | 2024-04-16 11:14 | W.PN.HOSP.TC ---
Today's Communication/Plan
-
see A/P
Assessment / Plan
Assessment / Plan
HPI: 73 years old female with history of right lower lobe wedge resection with benign pathology, ESRD on HD; presented with weeks of generalized fatigue, productive cough and hemoptysis.
A/P:
# Right lower lobe pneumonia with mild hemoptysis, productive cough with hemoptysis, occasional right-sided back pain
# Hemoptysis resolved
# Bronchoscopy 04/03/2024-Dr. Swanson-valerie blood throughout right lower lobe airway, bloody plugs throughout right middle lobe and right mainstem removed, no visual evidence for active bleeding, sequential lavages of right lower lobe basilar segment
with valerie blood returning, no obvious endobronchial lesions however right lower lobe lateral basilar segment with abnormal appearing mucosa, nodular and edematous and erythematous, BAL, brushings and endobronchial mucosal biopsies were obtained,
culture sent
# R flank pain with new L liver mass
# R lumbar pain
# Right Lower Lobe Atelectasis
# Right lower lobe lung mass, contiguous with right liver mass
# Right Lower Lobe and Right Medial Lobe blood from bronchoscopy - valerie blood throughout the right lower lobe airway, bloody plugs throughout the right middle lobe, right mainstem
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
# PAD with left SFA angioplasty and stenting 2012
# h/o CABG 2002
# Ischemic cardiomyopathy with LVEF of 45% (decreased from 60 to 65%)
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
# Anemia of chronic disease.
# Polycystic kidney disease with bilateral nephrectomy 2003
# Failure to thrive with generalized fatigue
# Right thoracotomy with right lower lobe wedge resection 2017 with benign pathology.
# Chronic hypotension requiring midodrine.
# History of PMR currently not on steroids.
# History of CVA, status post angioplasty/stent at the left vertebral artery 2019 at [facility].
# Valvular disease with mild MR/moderate AI
# History of longstanding tobacco abuse, currently not smoking
# History of COVID-19 infection
Patient's pathology result and poor prognosis was explained (on 04/07/24)
Patient acknowledged understanding of her pathology results and poor prognosis in the setting of her comorbid conditions and she also understood that Comfort care meant stopping her dialysis sessions going forward and also stopping all of her
routine, rno-iewrdqt-chgfqvay medications.
Patient clearly stated she would like to have Com[facility] and Hospice started.
Patient remains pain-free and comfortable today.
Sacral decub noted, consult wound care
Continue comfort measures
DW RN
Anticipated Discharge: 24 - 48 hours
Subjective/Interval History
-
Date of Service: April 16, 2024
Objective Data
-
Vital Signs:
Vital Signs
Temp Pulse Resp BP Pulse Ox
37.2 C 41 16 119/39 92
04/16/24 07:30 04/16/24 07:30 04/16/24 07:30 04/16/24 07:30 04/16/24 07:30
I&O
04/15/24 04/16/24 04/17/24
06:59 06:59 06:59
Intake Total 360 / 360 480 / 480
Balance 360 / 360 480 / 480
Review of Systems
-
All other systems: Reviewed and negative
Physical Exam
-
General: Well Developed, No Apparent Distress, Comfortable, Conversant and Appears Chronically Ill
HEENT: Normocephalic and Atraumatic; Negative Oxygen
Respiratory: Non Labored Respirations; Negative Accessory Resp Muscle Use
Skin: Warm
Neuro: Awake, Alert and Oriented
Psych: Calm and Intact Judgement/Insight
Data Reviewed
-
CT Scan: Report Reviewed by me and Discussed with Patient
[2024-04-16] MEDS: ROBINUL 0.2 MG IV (13:28)
[2024-04-16] MEDS: DILAUDID 0.25 MG IV ×2 (13:28→20:16)
[2024-04-16] MEDS: MYCOSTATIN ORAL SUSPENSION PO (14:04)
--- NOTE | 2024-04-16 18:12 | PTCARENOTE ---
pt had an episode of hemoptysis friend at bedside, able to help pt with suctioning and rinse her mouth, swish and swallow given.
[2024-04-16 19:34] VITALS: BP 115/58
[2024-04-17] MEDS: ROXICODONE 2.5 MG PO ×2 (00:31→08:46)
[2024-04-17] MEDS: ZOFRAN 4 MG IV ×2 (05:05→13:27)
[2024-04-17] MEDS: DILAUDID 0.25 MG IV ×3 (05:13→17:37)
[2024-04-17 07:25] VITALS: BP 118/52
--- NOTE | 2024-04-17 08:23 | W.PN.HOSP.TC ---
Today's Communication/Plan
-
Reduced frequency of Dilaudid to 0.5 mg q4h prn and held oxycodone due to recent vomiting and nausea, as discussed with hospice nurse today
Assessment / Plan
Assessment / Plan
Physical Exam
General: Well Developed, No Apparent Distress, Comfortable, Conversant and Appears Chronically Ill
HEENT: Normocephalic and Atraumatic; Negative Oxygen
Respiratory: Non Labored Respirations; Negative Accessory Resp Muscle Use
Skin: Warm
Neuro: Awake, Alert and Oriented
Psych: Calm and Intact Judgement/Insight
HPI: 73 years old female with history of right lower lobe wedge resection with benign pathology, ESRD on HD; presented with weeks of generalized fatigue, productive cough and hemoptysis.
A/P:
# Right lower lobe pneumonia with mild hemoptysis, productive cough with hemoptysis, occasional right-sided back pain
# Hemoptysis resolved
# Bronchoscopy 04/03/2024-Dr. Swanson-valerie blood throughout right lower lobe airway, bloody plugs throughout right middle lobe and right mainstem removed, no visual evidence for active bleeding, sequential lavages of right lower lobe basilar segment
with valerie blood returning, no obvious endobronchial lesions however right lower lobe lateral basilar segment with abnormal appearing mucosa, nodular and edematous and erythematous, BAL, brushings and endobronchial mucosal biopsies were obtained,
culture sent
# R flank pain with new L liver mass
# R lumbar pain
# Right Lower Lobe Atelectasis
# Right lower lobe lung mass, contiguous with right liver mass
# Right Lower Lobe and Right Medial Lobe blood from bronchoscopy - valerie blood throughout the right lower lobe airway, bloody plugs throughout the right middle lobe, right mainstem
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
# PAD with left SFA angioplasty and stenting 2012
# h/o CABG 2002
# Ischemic cardiomyopathy with LVEF of 45% (decreased from 60 to 65%)
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
# Anemia of chronic disease.
# Polycystic kidney disease with bilateral nephrectomy 2003
# Failure to thrive with generalized fatigue
# Right thoracotomy with right lower lobe wedge resection 2018 with benign pathology.
# Chronic hypotension requiring midodrine.
# History of PMR currently not on steroids.
# History of CVA, status post angioplasty/stent at the left vertebral artery 2019 at [facility].
# Valvular disease with mild MR/moderate AI
# History of longstanding tobacco abuse, currently not smoking
# History of COVID-19 infection
Patient's pathology result and poor prognosis was explained (on 04/07/24)
Patient acknowledged understanding of her pathology results and poor prognosis in the setting of her comorbid conditions and she also understood that Comfort care meant stopping her dialysis sessions going forward and also stopping all of her
routine, pqt-jchqpba-xqctjvwn medications.
Patient clearly stated she would like to have Comfort Care and Hospice started.
Patient remains pain-free and comfortable today.
Sacral decub noted, wound care was consulted, appreciate their evaluation and treatment
Continue comfort measures
Anticipated Discharge: > 48 hours
Subjective/Interval History
-
Date of Service: April 17, 2024
Patient was seen and examined. She reported no pain or any other complaints at the time she was seen.
Objective Data
-
Vital Signs:
Vital Signs
Temp Pulse Resp BP Pulse Ox
97.9 F 83 16 118/52 90
04/17/24 07:25 04/17/24 07:25 04/17/24 07:25 04/17/24 07:25 04/17/24 07:25
I&O
04/16/24 04/17/24 04/18/24
06:59 06:59 06:59
Intake Total 480 / 480 600 / 600
Balance 480 / 480 600 / 600
[2024-04-17] MEDS: LIDOCAINE 4% PATCH TOPICAL (08:45)
[2024-04-17] MEDS: MYCOSTATIN ORAL SUSPENSION 5 ML PO (08:47)
[2024-04-17] MEDS: MIRALAX 17 GRAMS PO (08:48)
--- NOTE | 2024-04-17 11:10 | WOUNDNOTE ---
[facility] RN note: Patient admitted with pneumonia. Patient is on comfort only measures.
See H&P for complete history.
PMH: ESRD (HD was recently stopped), CVA, CM, R lower lobe mass with wedge resection, failed renal transplant, CABG, former smoker.
Wound Location and type/assessment: Patient has a L sacral/buttocks small stage 2 pressure injury. Upper sacrum slow to neftali red. L lower outer buttocks red merritt (scar?). R hip scratch stearns. Heels blanchable red/boggy.
Appetite: poor.
Pressure redistribution devices in place: [employer] Accumax. Patient declined an air bed. Air chair cushion. Patient moves self in bed.
Plan: Patient incontinent brief changed per patient request. Silicone border foam changed on sacral/buttocks. Heels off bed with pillow. Patient declined being turned. Patient instructed how to semi side lying turn to off load sacral/coccyx.
Protective spine foam maintained. Patient at high risk of worsening/additional pressure injuries d/t poor nutrition, overall medical condition, patient does not like to be positioning on her side.
Will confirm orders with Dr. Alegria and updated DERICK Rubio.
Care plan to be updated, will sign off. Patient on comfort measures only.
--- NOTE | 2024-04-17 14:51 | CM ---
Reviewed the chart notes. CM continues to be available to patient/family.
Plan: Comfort care continues.
[2024-04-17 19:28] VITALS: BP 122/74
[2024-04-18] MEDS: DILAUDID 0.25 MG IV ×2 (05:29→09:45)
[2024-04-18 07:30] VITALS: BP 100/59
[2024-04-18] MEDS: MIRALAX PO (08:13)
[2024-04-18] MEDS: ATIVAN 1 MG IV (09:46)
--- NOTE | 2024-04-18 10:57 | CM ---
Reviewed the chart notes. Patient with two visitors today. CM continues to be available to patient/family.
Plan: Continue comfort care.
--- NOTE | 2024-04-18 14:03 | W.PN.HOSP.TC ---
Today's Communication/Plan
-
Patient comfortable, no new concerns reported
Continue Comfort Care
Assessment / Plan
Assessment / Plan
Physical Exam
General: Well Developed, No Apparent Distress, Comfortable, Conversant and Appears Chronically Ill
HEENT: Normocephalic and Atraumatic; Negative Oxygen
Respiratory: Non Labored Respirations; Negative Accessory Resp Muscle Use
Skin: Warm
Neuro: Awake, Alert and Oriented
Psych: Calm and Intact Judgement/Insight
HPI: 73 years old female with history of right lower lobe wedge resection with benign pathology, ESRD on HD; presented with weeks of generalized fatigue, productive cough and hemoptysis.
A/P:
# Right lower lobe pneumonia with mild hemoptysis, productive cough with hemoptysis, occasional right-sided back pain
# Hemoptysis resolved
# Bronchoscopy 04/03/2024-Dr. Swanson-valerie blood throughout right lower lobe airway, bloody plugs throughout right middle lobe and right mainstem removed, no visual evidence for active bleeding, sequential lavages of right lower lobe basilar segment
with valerie blood returning, no obvious endobronchial lesions however right lower lobe lateral basilar segment with abnormal appearing mucosa, nodular and edematous and erythematous, BAL, brushings and endobronchial mucosal biopsies were obtained,
culture sent
# R flank pain with new L liver mass
# R lumbar pain
# Right Lower Lobe Atelectasis
# Right lower lobe lung mass, contiguous with right liver mass
# Right Lower Lobe and Right Medial Lobe blood from bronchoscopy - valerie blood throughout the right lower lobe airway, bloody plugs throughout the right middle lobe, right mainstem
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
# PAD with left SFA angioplasty and stenting 2012
# h/o CABG 2002
# Ischemic cardiomyopathy with LVEF of 45% (decreased from 60 to 65%)
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
# Anemia of chronic disease.
# Polycystic kidney disease with bilateral nephrectomy 2003
# Failure to thrive with generalized fatigue
# Right thoracotomy with right lower lobe wedge resection 2018 with benign pathology.
# Chronic hypotension requiring midodrine.
# History of PMR currently not on steroids.
# History of CVA, status post angioplasty/stent at the left vertebral artery 2019 at [facility].
# Valvular disease with mild MR/moderate AI
# History of longstanding tobacco abuse, currently not smoking
# History of COVID-19 infection
Patient's pathology result and poor prognosis was explained (on 04/07/24)
Patient acknowledged understanding of her pathology results and poor prognosis in the setting of her comorbid conditions and she also understood that Comfort care meant stopping her dialysis sessions going forward and also stopping all of her
routine, lzr-yqzlmfg-[id number] medications.
Patient clearly stated she would like to have Comfort Care and Hospice started.
Patient remains pain-free and comfortable today.
Sacral decub noted, wound care was consulted, appreciate their evaluation and treatment
Continue comfort measures
Anticipated Discharge: > 48 hours
Subjective/Interval History
-
Date of Service: April 18, 2024
Patient was seen and examined. She reported no new pain or any other new complaints.
Objective Data
-
Vital Signs:
Vital Signs
Temp Pulse Resp BP Pulse Ox
98.3 F 82 16 100/59 95
04/18/24 07:30 04/18/24 07:30 04/18/24 07:30 04/18/24 07:30 04/18/24 07:30
I&O
04/17/24 04/18/24 04/19/24
06:59 06:59 06:59
Intake Total 600 / 600 960 / 960
Balance 600 / 600 960 / 960
[2024-04-18 19:17] VITALS: BP 118/61
[2024-04-19] MEDS: DILAUDID 0.25 MG IV ×3 (03:40→20:08)
[2024-04-19] MEDS: ATIVAN 0.5 MG PO (03:40)
[2024-04-19 07:20] VITALS: BP 99/54
[2024-04-19] MEDS: ATIVAN 1 MG IV (09:46)
[2024-04-19] MEDS: ROBINUL 0.2 MG IV ×2 (09:47→14:43)
[2024-04-19] MEDS: MIRALAX PO (10:06)
--- NOTE | 2024-04-19 14:09 | CM ---
Reviewed the chart notes. The patient remains on comfort care at this time. CM continues to be available to patient/family.
--- NOTE | 2024-04-19 17:18 | W.PN.HOSP.TC ---
Today's Communication/Plan
-
Remains comfortable
Continue comfort care
Assessment / Plan
Assessment / Plan
Physical Exam
General: Well Developed, No Apparent Distress, Comfortable, Conversant and Appears Chronically Ill
HEENT: Normocephalic and Atraumatic; Negative Oxygen
Respiratory: Non Labored Respirations; Negative Accessory Resp Muscle Use
Skin: Warm
Neuro: Awake, Alert and Oriented
Psych: Calm and Intact Judgement/Insight
HPI: 73 years old female with history of right lower lobe wedge resection with benign pathology, ESRD on HD; presented with weeks of generalized fatigue, productive cough and hemoptysis.
A/P:
# Right lower lobe pneumonia with mild hemoptysis, productive cough with hemoptysis, occasional right-sided back pain
# Hemoptysis resolved
# Bronchoscopy 04/03/2024-Dr. Swanson-valerie blood throughout right lower lobe airway, bloody plugs throughout right middle lobe and right mainstem removed, no visual evidence for active bleeding, sequential lavages of right lower lobe basilar segment
with valerie blood returning, no obvious endobronchial lesions however right lower lobe lateral basilar segment with abnormal appearing mucosa, nodular and edematous and erythematous, BAL, brushings and endobronchial mucosal biopsies were obtained,
culture sent
# R flank pain with new L liver mass
# R lumbar pain
# Right Lower Lobe Atelectasis
# Right lower lobe lung mass, contiguous with right liver mass
# Right Lower Lobe and Right Medial Lobe blood from bronchoscopy - valerie blood throughout the right lower lobe airway, bloody plugs throughout the right middle lobe, right mainstem
# CAD/PAD/prior CVA on DAPT [employer].
# PAD with left SFA angioplasty and stenting 2012
# h/o CABG 2002
# Ischemic cardiomyopathy with LVEF of 45% (decreased from 60 to 65%)
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
# Anemia of chronic disease.
# Polycystic kidney disease with bilateral nephrectomy 2003
# Failure to thrive with generalized fatigue
# Right thoracotomy with right lower lobe wedge resection 2018 with benign pathology.
# Chronic hypotension requiring midodrine.
# History of PMR currently not on steroids.
# History of CVA, status post angioplasty/stent at the left vertebral artery 2019 at [facility].
# Valvular disease with mild MR/moderate AI
# History of longstanding tobacco abuse, currently not smoking
# History of COVID-19 infection
Patient's pathology result and poor prognosis was explained (on 04/07/24)
Patient acknowledged understanding of her pathology results and poor prognosis in the setting of her comorbid conditions and she also understood that Comfort care meant stopping her dialysis sessions going forward and also stopping all of her
routine, tll-uxywtte-[id number] medications.
Patient clearly stated she would like to have Comfort Care and Hospice started.
Patient remains pain-free and comfortable today.
Sacral decub noted, wound care was consulted, appreciate their evaluation and treatment
Continue comfort measures
Anticipated Discharge: > 48 hours
Subjective/Interval History
-
Date of Service: April 19, 2024
Patient was seen and examined. She denied any shortness of breath, pain or any other symptoms or complaints.
Objective Data
-
Vital Signs:
Vital Signs
Temp Pulse Resp BP Pulse Ox
97.4 F 81 16 99/54 91
04/19/24 07:20 04/19/24 07:20 04/19/24 07:20 04/19/24 07:20 04/19/24 07:20
I&O
04/18/24 04/19/24 04/20/24
06:59 06:59 06:59
Intake Total 960 / 960 240 / 240 240 / 240
Balance 960 / 960 240 / 240 240 / 240
[2024-04-19 23:32] VITALS: BP 90/53
[2024-04-20] MEDS: DILAUDID 0.25 MG IV (03:33)
[2024-04-20] MEDS: ROBINUL 0.2 MG IV (03:34)
[2024-04-20 08:05] VITALS: BP 90/48
[2024-04-20] MEDS: MIRALAX PO (08:33)
[2024-04-20] MEDS: ATIVAN 1 MG IV (09:34)
--- NOTE | 2024-04-20 11:59 | W.PN.HOSP.TC ---
Today's Communication/Plan
-
Continue Comfort Care
Hospice nurse to discuss with patient's family how comfort care is done, and which medications are appropriate to give and when
Assessment / Plan
Assessment / Plan
Physical Exam
General: Well Developed, No Apparent Distress, Comfortable, Conversant and Appears Chronically Ill
HEENT: Normocephalic and Atraumatic; Negative Oxygen
Respiratory: Non Labored Respirations; Negative Accessory Resp Muscle Use
Skin: Warm
Neuro: Awake, Alert and Oriented
Psych: Calm and Intact Judgement/Insight
HPI: 73 years old female with history of right lower lobe wedge resection with benign pathology, ESRD on HD; presented with weeks of generalized fatigue, productive cough and hemoptysis.
A/P:
# Right lower lobe pneumonia with mild hemoptysis, productive cough with hemoptysis, occasional right-sided back pain
# Hemoptysis resolved
# Bronchoscopy 04/03/2024-Dr. Swanson-valerie blood throughout right lower lobe airway, bloody plugs throughout right middle lobe and right mainstem removed, no visual evidence for active bleeding, sequential lavages of right lower lobe basilar segment
with valerie blood returning, no obvious endobronchial lesions however right lower lobe lateral basilar segment with abnormal appearing mucosa, nodular and edematous and erythematous, BAL, brushings and endobronchial mucosal biopsies were obtained,
culture sent
# R flank pain with new L liver mass
# R lumbar pain
# Right Lower Lobe Atelectasis
# Right lower lobe lung mass, contiguous with right liver mass
# Right Lower Lobe and Right Medial Lobe blood from bronchoscopy - valerie blood throughout the right lower lobe airway, bloody plugs throughout the right middle lobe, right mainstem
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
# PAD with left SFA angioplasty and stenting 2012
# h/o CABG 2002
# Ischemic cardiomyopathy with LVEF of 45% (decreased from 60 to 65%)
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
# Anemia of chronic disease.
# Polycystic kidney disease with bilateral nephrectomy 2003
# Failure to thrive with generalized fatigue
# Right thoracotomy with right lower lobe wedge resection 2018 with benign pathology.
# Chronic hypotension requiring midodrine.
# History of PMR currently not on steroids.
# History of CVA, status post angioplasty/stent at the left vertebral artery 2019 at [facility].
# Valvular disease with mild MR/moderate AI
# History of longstanding tobacco abuse, currently not smoking
# History of COVID-19 infection
Patient's pathology result and poor prognosis was explained (on 04/07/24)
Patient acknowledged understanding of her pathology results and poor prognosis in the setting of her comorbid conditions and she also understood that Comfort care meant stopping her dialysis sessions going forward and also stopping all of her
routine, woj-aaauews-sruzkxyj medications.
Patient clearly stated she would like to have Comfort Care and Hospice started.
Patient remains pain-free and comfortable today.
Sacral decub noted, wound care was consulted, appreciate their evaluation and treatment
Continue comfort measures
Anticipated Discharge: > 48 hours
Subjective/Interval History
-
Date of Service: April 20, 2024
Patient was seen and examined. She denied any pain or any other complaints.
Objective Data
-
Vital Signs:
Vital Signs
Temp Pulse Resp BP Pulse Ox
97.4 F 83 16 90/53 91
04/20/24 07:42 04/20/24 07:42 04/20/24 07:42 04/19/24 23:32 04/20/24 07:42
I&O
04/19/24 04/20/24 04/21/24
06:59 06:59 06:59
Intake Total 240 / 240 240 / 240
Output Total 0 / 0
Balance 240 / 240 240 / 240
[2024-04-20] MEDS: DILAUDID 0.5 MG IV ×3 (13:12→15:23)
--- NOTE | 2024-04-20 13:44 | HOSPNOTE ---
Patient remains on comfort and appears to be actively dying with in the next twenty four to forty eight hours. The Attending was called and orders were changed to help keep patient comfortable, the nurse will follow the protocol of janny
and end of life care. I will continue to follow and support.
--- NOTE | 2024-04-20 16:03 | CM ---
Young Lucero reevaluated pt from Hospice.
Hospice spoke with family and MD . Pt to remain on Comfort care.
PLAN Comfort care remains
[2024-04-20] MEDS: DILAUDID 50 IV (16:33)
[2024-04-20 22:06] VITALS: BP 89/55
[2024-04-21 07:30] VITALS: BP 112/51
[2024-04-21] MEDS: MIRALAX PO (09:06)
--- NOTE | 2024-04-21 10:31 | HOSPNOTE ---
Went in to support friends at bedside. Patient appears slightly uncomfortable at this time and asked the nurse to give a PRN dose of ativan and dilaudid. Patient remains on a drip. Patient appears to be actively dying. Will continue to support.
[2024-04-21] MEDS: NSS (PRESERVATIVE FREE) 0.5 ML IV (10:36)
[2024-04-21] MEDS: ATIVAN 1 MG IV (10:36)
[2024-04-21] MEDS: DILAUDID 0.25 MG IV (10:37)
--- NOTE | 2024-04-21 10:48 | CM ---
Reviewed the chart notes. Patient's friends at the bedside. Patient on a Dilaudid gtt. CM continues to be available to patient/family.
Plan: Comfort Care.
--- NOTE | 2024-04-21 13:07 | W.PN.HOSP.TC ---
Today's Communication/Plan
-
Continue Comfort Measures
Currently on Dilaudid Drip
I spoke with patient's family inside patient's room and I answered their questions
Assessment / Plan
Assessment / Plan
Physical Exam
General: Well Developed, No Apparent Distress, Comfortable, Conversant and Appears Chronically Ill
HEENT: Normocephalic and Atraumatic; Negative Oxygen
Respiratory: Non Labored Respirations; Negative Accessory Resp Muscle Use
Skin: Warm
Neuro: Awake, Alert and Oriented
Psych: Calm and Intact Judgement/Insight
HPI: 73 years old female with history of right lower lobe wedge resection with benign pathology, ESRD on HD; presented with weeks of generalized fatigue, productive cough and hemoptysis.
A/P:
# Right lower lobe pneumonia with mild hemoptysis, productive cough with hemoptysis, occasional right-sided back pain
# Hemoptysis resolved
# Bronchoscopy 04/03/2024-Dr. Swanson-valerie blood throughout right lower lobe airway, bloody plugs throughout right middle lobe and right mainstem removed, no visual evidence for active bleeding, sequential lavages of right lower lobe basilar segment
with valerie blood returning, no obvious endobronchial lesions however right lower lobe lateral basilar segment with abnormal appearing mucosa, nodular and edematous and erythematous, BAL, brushings and endobronchial mucosal biopsies were obtained,
culture sent
# R flank pain with new L liver mass
# R lumbar pain
# Right Lower Lobe Atelectasis
# Right lower lobe lung mass, contiguous with right liver mass
# Right Lower Lobe and Right Medial Lobe blood from bronchoscopy - valerie blood throughout the right lower lobe airway, bloody plugs throughout the right middle lobe, right mainstem
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
# PAD with left SFA angioplasty and stenting 2012
# h/o CABG 2002
# Ischemic cardiomyopathy with LVEF of 45% (decreased from 60 to 65%)
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
# Anemia of chronic disease.
# Polycystic kidney disease with bilateral nephrectomy 2003
# Failure to thrive with generalized fatigue
# Right thoracotomy with right lower lobe wedge resection 2018 with benign pathology.
# Chronic hypotension requiring midodrine.
# History of PMR currently not on steroids.
# History of CVA, status post angioplasty/stent at the left vertebral artery 2019 at [facility].
# Valvular disease with mild MR/moderate AI
# History of longstanding tobacco abuse, currently not smoking
# History of COVID-19 infection
Patient's pathology result and poor prognosis was explained (on 04/07/24)
Patient acknowledged understanding of her pathology results and poor prognosis in the setting of her comorbid conditions and she also understood that Comfort care meant stopping her dialysis sessions going forward and also stopping all of her
routine, xua-fyvabcn-owobpnyg medications.
Patient clearly stated she would like to have Comfort Care and Hospice started.
Patient remains pain-free and comfortable today, currently on Dilaudid Drip.
Sacral decub noted, wound care was consulted, appreciate their evaluation and treatment
Continue comfort measures
I spoke to patient's family in the patient's room today. All questions and concerns were answered to satisfaction.
Anticipated Discharge: > 48 hours
Subjective/Interval History
-
Date of Service: April 21, 2024
Patient was seen and examined. She appeared to be sleeping at the time she was seen, relatively comfortable.
Objective Data
-
Vital Signs:
Vital Signs
Temp Pulse Resp BP Pulse Ox
97.8 F 108 18 112/51 86
04/21/24 07:30 04/21/24 07:30 04/21/24 07:30 04/21/24 07:30 04/21/24 07:30
I&O
04/20/24 04/21/24 04/22/24
06:59 06:59 06:59
Intake Total 240 / 240 0 / 0
Output Total 0 / 0
Balance 240 / 240 0 / 0
[2024-04-21 15:15] VITALS: BP 99/47
[2024-04-21 19:36] VITALS: BP 94/51
--- NOTE | 2024-04-22 00:37 | W.PN.DEATH ---
Pronouncement of
-
Called to see patient to pronounce.
No spontaneous heart tones or respirations noted.
Patient not responsive to verbal stimuli.
Patient is pronounced .
Time of : 00:33
Date of : 04/22/24
Cause of : metastatic squamous cell carcinoma of lung
Family Notified: Yes (2 friends at bedside)
--- NOTE | 2024-04-22 04:33 | PTCARENOTE ---
Pt family members notified staff that they believed pt had passed. PIER WORKER informed and called to bedside to pronounce pt.
--- NOTE | 2024-04-24 17:06 | W.DCSUMMARY ---
Addendum entered and electronically signed by Abdullahi Alegria MD 04/25/24 00:12:
Correction: Patient was started on [facility] on 04/07/24 and on 04/22/24.
Original Note:
Discharge Summary
Discharge Data
Date of Admission: 03/24/24
Date of Discharge: 04/22/24
Total time spent discharging patient (in min): 37
-
Pending Results: No
Hospital Course
73 year old female with extensive past medical history including end-stage renal disease with failed transplant on hemodialysis Wednesday, coronary artery disease, right thoracotomy with right lower lobe wedge resection 2019 with
benign pathology, CVA, ischemic cardiomyopathy presents to the emergency room with complaints of about 3 to 4 weeks of severe generalized fatigue, productive cough with hemoptysis as well as occasional right-sided back pain. On admission, it was
noted that CT imaging findings showed large amount of dense airspace consolidation in the basal segments of the right lower lobe, most likely a presenting pneumonia, and parts of the lung were completely filled with secretions. Patient was also
noted to have hemoptysis. Patient was started on broad-spectrum intravenous antibiotics. Nephrology was consulted and patient was started on dialysis. Pulmonary was consulted and patient was transitioned to oral antibiotics.
Given that CT Chest showed a dense consolidation in the RLL (most likely pneumonia) and decreased attenuation in the right lobe of liver, CT abdomen/pelvis was obtained, which showed that in the posterior and inferior right lower lobe of the lung
and extending into the adjacent posterior and superior right liver, there was a heterogeneously enhancing rounded density, which likely represented a mass, highly suspicious for neoplasia. Oncology was consulted. The finding of the mass was
explained to the patient and patient stated she would like to proceed with liver biopsy and if mass was malignant, she would like to proceed with hospice. Patient's dual antiplatelet therapy was held in preparation for biopsy. Hospitalist discussed
with specialists (IR, Onc, Pulm), felt liver biopsy too invasive given it would have to be approached via the pleura, so plan was made for bronchoscopy. Bronchoscopy was performed on 04/03/24, and it showed as per pulmonary note, '....there was
valerie blood throughout the right lower lobe airway, bloody plugs throughout the right middle lobe, right mainstem This was removed. There is no visual evidence of active bleeding, however with sequential lavage of right lower lobe lateral basal
segment, valerie blood returned. No obvious endobronchial lesion noted, however right lower lobe lateral basal segment with abnormal appearing mucosa, nodular, edematous, erythematous.....' Pulmonary recommended holding Aspirin and Plavix, cardiology
was consulted and recommended resuming with Aspirin only when possible. Patient continued to receive dialysis with nephrology.
Patient's biopsy results showed that she had squamous cell carcinoma, invasive, poorly differentiated. After discussion with the various physicians involved in her care, patient decided to change the care she was getting to [facility].
Patient was started on [facility] on 04/07/24 and on 04/21/24.
Discharge Plan
-
Patient Disposition:
Date/Time
Date/Time: 04/22/24 00:33
Discharge Date and Time
Discharge Date/Time: 04/22/24 00:33
Print Language: MALAYSIAN
== END 2024-04-22 00:33 | disposition expired | DRG 180 ==
LOC: 2 NORTH 14:49
PROVIDERS: Internal Medicine; Internal Medicine Critical Care Medicine; Nurse Practitioner Family; Radiology Diagnostic Radiology; Specialist; ADMITTING PHYSICIAN Internal Medicine; ATTENDING PHYSICIAN Hospitalist; CONSULT PHYSICIAN Internal Medicine; CONSULT PHYSICIAN Specialist; EMERGENCY PHYSICIAN Emergency Medicine; FAMILY PHYSICIAN Internal Medicine; OTHER PHYSICIAN Internal Medicine Hematology & Oncology
PROC: 5A1D70Z Performance of Urinary Filtration, Intermittent, Less than 6 Hours Per Day (ICD-10-PCS; 2024-03-24)
PROC: 0BD68ZX Extraction of Right Lower Lobe Bronchus, Via Natural or Artificial Opening Endoscopic, Diagnostic (ICD-10-PCS; 2024-04-03)
PROC: 0B9F8ZX Drainage of Right Lower Lung Lobe, Via Natural or Artificial Opening Endoscopic, Diagnostic (ICD-10-PCS; 2024-04-03)
PROC: 0JPT3XZ Removal of Tunneled Vascular Access Device from Trunk Subcutaneous Tissue and Fascia, Percutaneous Approach (ICD-10-PCS; 2024-04-05)
PROC: 05PY33Z Removal of Infusion Device from Upper Vein, Percutaneous Approach (ICD-10-PCS; 2024-04-05)
DX: C34.31 Malignant neoplasm of lower lobe, right bronchus or lung (principal); J18.9 Pneumonia, unspecified organism; N18.6 End stage renal disease; T86.12 Kidney transplant failure; I13.2 Hypertensive heart and chronic kidney disease with heart failure and with stage 5 chronic kidney disease, or end stage renal disease; Q61.3 Polycystic kidney, unspecified; R04.2 Hemoptysis; D84.9 Immunodeficiency, unspecified; E87.3 Alkalosis; Z68.1 Body mass index [BMI] 19.9 or less, adult; E87.1 Hypo-osmolality and hyponatremia; J98.11 Atelectasis; T17.590A Other foreign object in bronchus causing asphyxiation, initial encounter; E44.0 Moderate protein-calorie malnutrition; Z51.5 Encounter for palliative care; Z66 Do not resuscitate; I25.5 Ischemic cardiomyopathy; I25.10 Atherosclerotic heart disease of native coronary artery without angina pectoris; I50.9 Heart failure, unspecified; Y83.0 Surgical operation with transplant of whole organ as the cause of abnormal reaction of the patient, or of later complication, without mention of misadventure at the time of the procedure; W44.F9XA Other object of natural or organic material, entering into or through a natural orifice, initial encounter; G62.9 Polyneuropathy, unspecified; G25.81 Restless legs syndrome; M85.80 Other specified disorders of bone density and structure, unspecified site; J43.9 Emphysema, unspecified; E21.2 Other hyperparathyroidism; I95.89 Other hypotension; M35.3 Polymyalgia rheumatica; I73.9 Peripheral vascular disease, unspecified; R16.0 Hepatomegaly, not elsewhere classified; I08.0 Rheumatic disorders of both mitral and aortic valves; R62.7 Adult failure to thrive; D63.0 Anemia in neoplastic disease; D63.1 Anemia in chronic kidney disease; I69.334 Monoplegia of upper limb following cerebral infarction affecting left non-dominant side; Z79.82 Long term (current) use of aspirin; Z79.899 Other long term (current) drug therapy; Z86.718 Personal history of other venous thrombosis and embolism; Z87.891 Personal history of nicotine dependence; Z90.2 Acquired absence of lung [part of]; Z90.5 Acquired absence of kidney; Z95.1 Presence of aortocoronary bypass graft; Z99.2 Dependence on renal dialysis; Z79.02 Long term (current) use of antithrombotics/antiplatelets
CPT/HCPCS: 88305; 36589; 71045; 71260; 74177; 76700; 80048; 80051; 80053; 80202; 81459; 82805; 83735; 83880; 84484; 85014; 85018; 85025; 85027; 87015; 87040; 87070; 87102; 87116; 87205; 87340; 88112; 88341; 88342; 93005; 96365; 96375; 97116; 97163; 97166; 97530; 99285; G0257; P9047; Q5106; Q9967